=== PATIENT | female | born 1955 | race Caucasian/White ===

== ENCOUNTER 2020-06-07 16:09 | Inpatient (IN) | payer MEDICARE, BC ==
[~2020-06-07] VITALS: Ht 154.9 cm; Wt 111.0 kg
[~2020-06-07 16:09] MED LIST: BUPR100T11 PO; ESOM20TA PO; GABA300C2 PO; HYDR-2761 PO; INSU100C4 SQ; INSU100V8 SQ; LISI1TAB37 PO; POTA8TAB45 PO; SERT50TA PO
--- NOTE | 2020-06-07 16:19 | ED.ADGEN ---
General Adult EDM: Chief Complaint: SHORTNESS OF BREATH HPI: HPI: Patient is a 65 year old female with productive cough, tested positive for Covid on June 01. Says she has been gradually getting worse. Has producti ve cough, body aches, shortness of breath. Has been taking steroids and azithromycin at home. denies any fever, vomiting, diarrhea. Patient has a history of diabetes, enlarged heart, and COPD but denies any previous history of smoking. Review of Systems: Review of Systems: Constitutional: Denies fever or chills. [] Eyes: Denies change in visual acuity. [] HENT: Denies nasal congestion or sore throat. [] Respiratory: Cough and shortness of breath Cardiovascular: Denies chest pain or edema. [] GI: Denies abdominal pain, nausea, vomiting, bloody stools or diarrhea. [] : Denies dysuria. [] Musculoskeletal: Denies back pain or joint pain. [] Integument: Denies rash. [] Neurologic: Denies headache, focal weakness or sensory changes. [] Endocrine: Denies polyuria or polydipsia. [] Lymphatic: Denies swollen glands. [] Psychiatric: Denies depression or anxiety. [] Current Medications: Current Medications Medications (Trade) Dose Ordered Sig/[facility] Start Time Stop Time Status Last Admin Dose Admin Acetaminophen (Tylenol) 650 mg PRN Q4HRS PRN 06/07/20 19:30 06/08/20 19:29 Azithromycin 250 ml @ 250 mls/hr 1X ONCE 06/07/20 18:30 06/07/20 19:29 DC 06/07/20 18:30 250 MLS/HR Ceftriaxone Sodium (Rocephin) 1 gm 1X ONCE 06/07/20 18:15 06/07/20 18:16 DC 06/07/20 18:29 1 GM Dexamethasone Sodium Phosphate (Decadron) 10 mg 1X ONCE 06/07/20 16:30 06/07/20 16:31 DC 06/07/20 16:30 10 MG Dextrose (Dextrose 50%-Water Syringe) 12.5 gm PRN Q15MIN PRN 06/07/20 19:30 Info (CONTRAST GIVEN -- Rx MONITORING) 1 each PRN DAILY PRN 06/07/20 19:15 06/09/20 19:14 Insulin Human Lispro (HumaLOG) 0-5 UNITS TIDWMEALS 06/08/20 08:00 Iohexol (Omnipaque 350 Mg/ml) 80 ml 1X ONCE 06/07/20 19:15 06/07/20 19:16 DC 06/07/20 19:44 80 ML Ondansetron HCl (Zofran) 4 mg PRN Q8HRS PRN 06/07/20 19:30 06/08/20 19:29 Sodium Chloride 500 ml @ 500 mls/hr 1X ONCE 06/07/20 18:45 06/07/20 19:44 DC 06/07/20 20:13 500 MLS/HR Allergies: Allergies: Allergies Coded Allergies Type Severity Reaction Last Updated Verified codeine Allergy Mild vomiting 03/25/16 Yes nitrofurantoin Allergy Mild rash 03/25/16 Yes colestipol Allergy Unknown 06/07/20 Yes Physical Exam: PE: Constitutional: Well developed, well nourished, no acute distress, non-toxic appearance. [] HENT: Normocephalic, atraumatic, bilateral external ears normal, oropharynx moist, no oral exudates, nose normal. [] Eyes: PERRLA, EOMI, conjunctiva normal, no discharge. [] Neck: Normal range of motion, no tenderness, supple, no stridor. [] Cardiovascular:Heart rate regular rhythm, no murmur [] Lungs & Thorax: Coarse bilaterally Abdomen: Bowel sounds normal, soft, no tenderness, no masses, no pulsatile masses. [] Skin: Warm, dry, no erythema, no rash. [] Back: No tenderness, no CVA tenderness. [] Extremities: No tenderness, no cyanosis, no clubbing, ROM intact, no edema. [] Neurologic: Alert and oriented X 3, normal motor function, normal sensory function, no focal deficits noted. [] Psychologic: Affect normal, judgement normal, mood normal. [] Constitutional: Well developed, obese, no acute distress, non-toxic appearance HENT: Normocephalic, atraumatic Eyes: Conjunctiva normal, no discharge Neck: Normal range of motion, supple Lungs & Thorax: No respiratory distress, equal chest rise and fall, suppleme ntal O2 in place Abdomen: Soft, obese, epigastric tenderness Skin: Warm, dry, no erythema, no rash Extremities: No tenderness, ROM intact, 1+ edema Neurologic: Alert and oriented X 3, no focal deficits noted Psychologic: Affect normal, judgment normal Current Patient Data: Labs: Laboratory Tests Test 06/07/20 17:50 06/07/20 20:16 White Blood Count 5.7 x10^3/uL (4.0-11.0) Red Blood Count 4.35 x10^6/uL (3.50-5.40) Hemoglobin 12.9 g/dL (12.0-15.5) Hematocrit 38.5 % (36.0-47.0) Mean Corpuscular Volume 89 fL (79-100) Mean Corpuscular Hemoglobin 30 pg (25-35) Mean Corpuscular Hemoglobin Concent 34 g/dL (31-37) Red Cell Distribution Width 13.8 % (11.5-14.5) Platelet Count 149 x10^3/uL (140-400) Neutrophils (%) (Auto) 82 % (31-73) H Lymphocytes (%) (Auto) 14 % (24-48) L Monocytes (%) (Auto) 3 % (0-9) Eosinophils (%) (Auto) 0 % (0-3) Basophils (%) (Auto) 1 % (0-3) Neutrophils # (Auto) 4.6 x10^3/uL (1.8-7.7) Lymphocytes # (Auto) 0.8 x10^3/uL (1.0-4.8) L Monocytes # (Auto) 0.2 x10^3/uL (0.0-1.1) Eosinophils # (Auto) 0.0 x10^3/uL (0.0-0.7) Basophils # (Auto) 0.0 x10^3/uL (0.0-0.2) D-Dimer (Sarah) 0.73 ug/mlFEU (0.00-0.50) H Sodium Level 142 mmol/L (136-145) Potassium Level 4.1 mmol/L (3.5-5.1) Chloride Level 102 mmol/L (98-107) Carbon Dioxide Level 31 mmol/L (21-32) Anion Gap 9 (6-14) Blood Urea Nitrogen 29 mg/dL (7-20) H Creatinine 1.1 mg/dL (0.6-1.0) H Estimated GFR (Cockcroft-Gault) 49.5 BUN/Creatinine Ratio 26 (6-20) H Glucose Level 129 mg/dL (70-99) H Calcium Level 8.6 mg/dL (8.5-10.1) Total Bilirubin 0.4 mg/dL (0.2-1.0) Aspartate Amino Transferase (AST) 37 U/L (15-37) Alanine Aminotransferase (ALT) 14 U/L (14-59) Alkaline Phosphatase 60 U/L (46-116) Troponin I Quantitative < 0.017 ng/mL (0.000-0.055) JO-Ptb-F-Type Natriuretic Peptide 260 pg/mL (0-124) H Total Protein 7.0 g/dL (6.4-8.2) Albumin 2.6 g/dL (3.4-5.0) L Albumin/Globulin Ratio 0.6 (1.0-1.7) L Urine Collection Type Unknown Urine Color Yellow Urine Clarity Cloudy Urine pH 6.0 (<5.0-8.0) Urine Specific [place] >=1.030 (1.000-1.030) Urine Protein 100 mg/dL (NEG-TRACE) Urine Glucose (UA) Negative mg/dL (NEG) Urine Ketones (Stick) Negative mg/dL (NEG) Urine Blood Negative (NEG) Urine Nitrite Negative (NEG) Urine Bilirubin Negative (NEG) Urine Urobilinogen Dipstick 0.2 mg/dL (0.2 mg/dL) Urine Leukocyte Esterase Negative (NEG) Urine RBC Occ /HPF (0-2) Urine WBC Occ /HPF (0-4) Urine Squamous Epithelial Cells Many /LPF Urine Bacteria Few /HPF (0-FEW) Urine Hyaline Casts Occasional /HPF Urine Mucus Slight /LPF Laboratory Tests 06/07/20 17:50 Laboratory Tests 06/07/20 17:50 Vital Signs: Vital Signs Date Time Temp Pulse Resp B/P (MAP) Pulse Ox O2 Delivery O2 Flow Rate FiO2 06/07/20 16:12 98.7 63 28 158/83 (108) 92 Nasal Cannula 5.0 98.7 EKG: EKG: Sinus rhythm, heart rate 62 bpm, left axis deviation, flattened T waves in multiple leads, no ST elevation or depression, no ectopy [] Heart Score: Risk Factors: Risk Factors: DM, Current or recent (<one month) smoker, HTN, HLP, family history of CAD, obesity. Risk Scores: Score 0 - 3: 2.5% MACE over next 6 weeks - Discharge Home Score 4 - 6: 20.3% MACE over next 6 weeks - Admit for Clinical Observation Score 7 - 10: 72.7% MACE over next 6 weeks - Early Invasive Strategies Radiology/Procedures: Radiology/Procedures: Exam: Chest one view INDICATION: Covid TECHNIQUE: Frontal view of the chest Comparisons: None FINDINGS: The cardiomediastinal silhouette and pulmonary vessels are within normal limits. Patchy airspace disease at the lungs bilaterally. No pleural effusion. IMPRESSION: Patchy bilateral airspace disease. PROCEDURE: CT ANGIOGRAPHY CHEST PQRS Compliance Statement: One or more of the following individualized dose reduction techniques were utilized for this examination: 1. Automated exposure control 2. Adjustment of the mA and/or kV according to patient size 3. Use of iterative reconstruction technique CT CHEST WITH CONTRAST, PULMONARY ANGIOGRAM History: Reason: SOA, elevated d-dimer, COVID, : Comparison: None. Technique: Helical CT of the chest was performed after the administration of 80 cc of Omnipaque 350 intravenous contrast according to PE protocol. Axial and coronal reconstructions were obtained. 3-D MIP images were constructed to better evaluate the pulmonary arteries. Findings: Pulmonary arteries are adequately opacified. There is no evidence of pulmonary embolism. There is no thoracic aortic dissection. The thyroid is symmetric. There are upper limits of normal in size bilateral hilar lymph nodes. Subcentimeter mediastinal lymph nodes. Cardiac size upper limits of normal, no pericardial effusion. There is no pleural abnormality. The central airways are patent. There are moderate patchy groundglass opacities throughout the lungs, relative sparing of the lung apices and the basilar left lower lobe. There is interspersed normal aerated lung throughout. No nodular opacities or consolidation is identified. There is cholecystectomy. Spinal stimulator lead is seen terminates at about T9. There is hardware of the left humerus, incompletely imaged. Old compression deformity anterior superior endplate of L1. IMPRESSION: 1. There is no CT evidence of pulmonary embolus. 2. There are patchy groundglass opacities throughout the lungs with interspersed normal lung. Relative sparing of the basilar left lower lobe and the lung apices. There is no confluent consolidation. Considerations include pneumonia including atypical viral pneumonia, nonspecific pneumonitis, or drug toxicity. Electronically signed by: Rosalio Spnan MD (06/07/2020 7:57 PM) [facility] Course & Med Decision Making: Course & Med Decision Making Care transition to Dr. Brown at shift change, pending labs and possible CTA to rule out pulmonary embolism. Anticipate patient will be admitted due to hypoxia and oxygen demands. 1800- Sign out received from Dr. Lowery for patient with pmh of COPD who has previously tested positive for COVID-19. COVID-[address] Labs pending. CXR with signs of COVID pneumonia. Azithromycin previously provided. Labs reviewed. WBC and lactic acid WNL. Troponin WNL. D-dimer elevated. CTA chest with findings consistent for known COVID19 and no signs of PE. Patient requiring admission for further evaluation and treatment. Discussed with Dr. Edwards (hospitalist) who is in agreement with admission. Discussed findings and plan with patient, who acknowledges understanding and agreement. COVID-19 CRITERIA: The patient was evaluated during the global COVID-19 pandemic, and that diagnosis was suspected/considered upon their initial presentation. Their evaluation, treatment and testing was consistent with current guidelines for patients who present with complaints or symptoms that may be related to COVID-19. Dragon Disclaimer: Dragon Disclaimer: This electronic medical record was generated, in whole or in part, using a voice recognition dictation system. Departure Departure Impression: Primary Impression: Pneumonia due to 2019 novel coronavirus Additional Impressions: Hypoxia Elevated d-dimer Disposition: ADMITTED INPT THIS HOSP Admitting Physician: CUONG (Jerry) Condition: STABLE Referrals: DIONICIO BROWN (PCP) COVID-19 Assessment: COVID-19 Patient Risks: Age 65 or older: Yes Sign of co-morbidity: Yes Exp to person + for COVID: Yes Exp to PUI: No Travel from affected area: No Lower respiratory symptoms: Yes Fever: No Other: Yes PPE Use: Full PPE with N95 mask or PAPR: Yes Critical Care Time Critical care time was 30 minutes which includes time at bedside, spent in discussion of patient's care with specialists and/or family members, with interpretation of laboratory and/or radiological studies and is exclusive of procedures. Problem Qualifiers PARAMJIT LOWERY MD Jun 07, 2020 16:19 ZO BROWN DO Jun 07, 2020 19:27
--- NOTE | 2020-06-07 16:28 | EKG ---
[facility] [address] [place] [address] Test Date: 2020-06-07 Test Time: 16:20:20 Pat Name: VISH CUELLAR Department: Room: Gender: F Speech Lang Path Therapist: : [id number] Requested By: PARAMJIT LOWERY Order Number: [id number] Reading MD: Measurements Intervals [place] Rate: 62 P: 42 IN: 154 QRS: -12 QRSD: 80 T: 9 QT: 434 QTc: 443 Interpretive Statements SINUS RHYTHM LEFTWARD AXIS QRS(T) CONTOUR ABNORMALITY CONSIDER ANTEROSEPTAL MYOCARDIAL DAMAGE POSSIBLY ABNORMAL ECG RI6.02 No previous ECG available for comparison
[2020-06-07] MEDS ORDERED: DEXAMETHASONE SOD PHOS 20 MG/5 ML VIAL. IV ONE (16:30)
[2020-06-07] MEDS ORDERED: IV NORMAL SALINE 500ML BAG 500 ML IV ONE ×2 (16:30→18:45)
--- NOTE | 2020-06-07 17:14 | RAD ---
Exam: Chest one view INDICATION: Covid TECHNIQUE: Frontal view of the chest Comparisons: None FINDINGS: The cardiomediastinal silhouette and pulmonary vessels are within normal limits. Patchy airspace disease at the lungs bilaterally. No pleural effusion. IMPRESSION: Patchy bilateral airspace disease. Electronically signed by: Anne London MD (06/07/2020 5:11 PM) [facility]
[2020-06-07 18:08] LABS: BASO % 1 % (0-3); EOS % 0 % (0-3); HEMATOCRIT 38.5 % (36.0-47.0); HEMOGLOBIN 12.9 g/dL (12.0-15.5); LYMPH # 0.8 x10^3/uL (1.0-4.8); LYMPH % 14 % (24-48); MEAN CORPUSCULAR HEMOGLOBIN 30 pg (25-35); MEAN CORPUSCULAR HGB CONC 34 g/dL (31-37); MEAN CORPUSCULAR VOLUME 89 fL (79-100); MONO # 0.2 x10^3/uL (0.0-1.1); MONO % 3 % (0-9); NEUT # 4.6 x10^3/uL (1.8-7.7); NEUT % 82 % (31-73); PLATELET COUNT 149 x10^3/uL (140-400); RED BLOOD COUNT 4.35 x10^6/uL (3.50-5.40); RED CELL DISTRIBUTION WIDTH 13.8 % (11.5-14.5); WHITE BLOOD COUNT 5.7 x10^3/uL (4.0-11.0)
[2020-06-07] MEDS ORDERED: cefTRIAXone IV Push 1 GM VIAL. IVP ONE (18:15)
[2020-06-07 18:18] LABS: CALCIUM 8.6 mg/dL (8.5-10.1); CREATININE 1.1 mg/dL (0.6-1.0); GFR 49.5; POTASSIUM 4.1 mmol/L (3.5-5.1)
[2020-06-07 18:25] LABS: ALBUMIN 2.6 g/dL (3.4-5.0); ALBUMIN/GLOBULIN RATIO 0.6 (1.0-1.7); TOTAL BILIRUBIN 0.4 mg/dL (0.2-1.0)
[2020-06-07] MEDS ORDERED: AZITHRMYCN 500MG IVPB FOR OMNI 250 ML IV ONE (18:30)
[2020-06-07] MEDS ORDERED: IOHEXOL 350 MG/ML 100 ML VIAL. IV ONE (19:15)
[2020-06-07] MEDS ORDERED: CONTRAST GIVEN. MC PRN (19:15)
[2020-06-07] MEDS ORDERED: ACETAMINOPHEN 325 MG TABLET. PO PRN (19:30)
[2020-06-07] MEDS ORDERED: ONDANSETRON PF 4 MG/2 ML VIAL. IV PRN (19:30)
[2020-06-07] MEDS ORDERED: DEXTROSE 50% 25 GM / 50ML DISP.SYRIN. IV PRN (19:30)
--- NOTE | 2020-06-07 20:00 | RAD ---
PQRS Compliance Statement: One or more of the following individualized dose reduction techniques were utilized for this examination: 1. Automated exposure control 2. Adjustment of the mA and/or kV according to patient size 3. Use of iterative reconstruction technique CT CHEST WITH CONTRAST, PULMONARY ANGIOGRAM History: Reason: SOA, elevated d-dimer, COVID, : Comparison: None. Technique: Helical CT of the chest was performed after the administration of 80 cc of Omnipaque 350 intravenous contrast according to PE protocol. Axial and coronal reconstructions were obtained. 3-D MIP images were constructed to better evaluate the pulmonary arteries. Findings: Pulmonary arteries are adequately opacified. There is no evidence of pulmonary embolism. There is no thoracic aortic dissection. The thyroid is symmetric. There are upper limits of normal in size bilateral hilar lymph nodes. Subcentimeter mediastinal lymph nodes. Cardiac size upper limits of normal, no pericardial effusion. There is no pleural abnormality. The central airways are patent. There are moderate patchy groundglass opacities throughout the lungs, relative sparing of the lung apices and the basilar left lower lobe. There is interspersed normal aerated lung throughout. No nodular opacities or consolidation is identified. There is cholecystectomy. Spinal stimulator lead is seen terminates at about T9. There is hardware of the left humerus, incompletely imaged. Old compression deformity anterior superior endplate of L1. IMPRESSION: 1. There is no CT evidence of pulmonary embolus. 2. There are patchy groundglass opacities throughout the lungs with interspersed normal lung. Relative sparing of the basilar left lower lobe and the lung apices. There is no confluent consolidation. Considerations include pneumonia including atypical viral pneumonia, nonspecific pneumonitis, or drug toxicity. Electronically signed by: Rosalio Spann MD (06/07/2020 7:57 PM) [facility]
[2020-06-07 20:24] LABS: BILIRUBIN,URINE NEGATIVE (NEG); CLARITY,URINE CLOUDY; COLOR,URINE YELLOW; NITRITE,URINE NEGATIVE (NEG); PROTEIN,URINE 100 mg/dL (NEG-TRACE); UROBILINOGEN,URINE 0.2 mg/dL (0.2 mg/dL)
[2020-06-07 20:29] LABS: BACTERIA,URINE FEW /HPF (0-FEW); HYALINE CASTS, URINE OCCASIONAL /HPF; RBC,URINE OCC /HPF (0-2); WBC,URINE OCC /HPF (0-4)
[2020-06-07] MEDS ORDERED: PRED5DRO16 OU (23:21)
[2020-06-07] MEDS ORDERED: SERT100T8 PO (23:21)
[2020-06-07] MEDS ORDERED: FURO40TA4 PO (23:21)
[2020-06-07] MEDS ORDERED: POTA8CAP19 PO (23:21)
[2020-06-07] MEDS ORDERED: GABA300C9 PO (23:21)
[2020-06-07] MEDS ORDERED: INSU100I17 SQ (23:21)
[2020-06-07] MEDS ORDERED: [UNRECOGNIZED DRUG - CODE] PO (23:21)
[2020-06-07] MEDS ORDERED: LOSA1TAB19 PO (23:21)
[2020-06-07] MEDS ORDERED: GLIP5TAB22 PO (23:21)
[2020-06-07] MEDS: LOSARTAN POTASSIUM 50 MG TABLET. PO SCH (23:42)
[2020-06-08 03:00] VITALS: BP 180/81
[2020-06-08] MEDS ORDERED: ENALAPRILAT 1.25 MG/ML VIAL. IVP SCH (06:00)
[2020-06-08 07:05] VITALS: BP 166/72
[2020-06-08] MEDS ORDERED: NON FORMULARY ITEM (Insulin Aspart (Novolog Flexpen) 1 UNIT) SQ SCH (07:30)
[2020-06-08] MEDS: SERTRALINE 50 MG TABLET. PO SCH (08:28)
[2020-06-08] MEDS: POTASSIUM CHLORIDE 10 MEQ TABLET.ER. PO SCH (08:28)
[2020-06-08] MEDS: glipiZIDE ER 2.5 MG TAB.ER.24 PO SCH (08:28)
[2020-06-08] MEDS: hydroCHLOROthiazide 12.5 MG CAPSULE PO SCH (08:28)
[2020-06-08] MEDS: OXYBUTYNIN CHLORIDE 5 MG TABLET PO SCH ×2 (08:29→20:16)
[2020-06-08] MEDS: GABAPENTIN 300 MG CAPSULE. PO SCH (08:29)
[2020-06-08] MEDS: FUROSEMIDE 40 MG TABLET. PO SCH (08:29)
[2020-06-08] MEDS: LOSARTAN POTASSIUM 50 MG TABLET. PO SCH (08:30)
[2020-06-08] MEDS: DEXAMETHASONE 0.1% OPHTH SOLUTION 5ML BOTTLE. OU SCH ×4 (08:53→20:16)
[2020-06-08] MEDS: INSULIN LISPRO 300 UNITS/3 ML VIAL. SQ SCH ×6 (08:56→17:08)
--- NOTE | 2020-06-08 09:20 | PDOC1 ---
History and Physical Date of Admission Date of Admission DATE: 06/08/20 TIME: 09:16 Identification/Chief Complaint Chief Complaint Shortness of breath Source Source: Patient History of Present Illness History of Present Illness Ms Knapp is a is a 65 year old female with PMHx DM2 (A1c 7.7), depression (s/p ECT), COPD, HTN, stress incontinence, morbid obesity who presents to ED at the insistence of her son for productive cough, tested positive for Covid on June 01 and worsening hypoxia noted with O2 saturations 74% on room air at home. She has been gradually getting worse. Has productive cough, body aches, shortness of breath. Has been taking steroids and azithromycin at home. denies any fever, vomiting, diarrhea. EKG: Sinus rhythm, heart rate 62 bpm, left axis deviation, flattened T waves in multiple leads, no ST elevation or depression, no ectopy Chest radiograph with patchy bilateral airspace disease. Labs of WBC 5.7, Hb 12.9, platelets 149, albumin 2.6, NA 142, K4.1, BUN 29, CR 1.1, glucose 129 Lactic acid WNL. Troponin WNL. D-dimer elevated. CTA chest with findings consistent for known COVID19 and no signs of PE. Admitted for further care due to hypoxia and oxygen demands. Past Medical History Cardiovascular: HTN, Hyperlipidemia Pulmonary: Asthma, Bronchitis, COPD CENTRAL NERVOUS SYSTEM: Carpal Tunnel Syndrome Renal/: Urinary Incontinence Endocrine: Diabetes Past Surgical History Past Surgical History: Cholecystectomy, Other (Carpal tunnel bilateral) Family History Family History: Coronary Artery Disease (Mother and father), Diabetes, High Cholestrol, Hypertension Social History Smoke: No ALCOHOL: none Drugs: None Current Problem List Problem List Problems Medical Problems: (1) Elevated d-dimer Status: Acute (2) Hypoxia Status: Acute (3) Pneumonia due to 2019 novel coronavirus Status: Acute Current Medications Current Medications Current Medications Sodium Chloride 500 ml @ 500 mls/hr 1X ONCE IV Last administered on 06/07/20at 16:29; Start 06/07/20 at 16:30; Stop 06/07/20 at 17:29; Status DC Dexamethasone Sodium Phosphate (Decadron) 10 mg 1X ONCE IV Last administered on 06/07/20at 16:30; Start 06/07/20 at 16:30; Stop 06/07/20 at 16:31; Status DC Ceftriaxone Sodium (Rocephin) 1 gm 1X ONCE IVP Last administered on 06/07/20at 18:29; Start 06/07/20 at 18:15; Stop 06/07/20 at 18:16; Status DC Azithromycin 250 ml @ 250 mls/hr 1X ONCE IV Last administered on 06/07/20at 18:30; Start 06/07/20 at 18:30; Stop 06/07/20 at 19:29; Status DC Sodium Chloride 500 ml @ 500 mls/hr 1X ONCE IV Last administered on 06/07/20at 20:13; Start 06/07/20 at 18:45; Stop 06/07/20 at 19:44; Status DC Iohexol (Omnipaque 350 Mg/ml) 80 ml 1X ONCE IV Last administered on 06/07/20at 19:44; Start 06/07/20 at 19:15; Stop 06/07/20 at 19:16; Status DC Info (CONTRAST GIVEN -- Rx MONITORING) 1 each PRN DAILY PRN MC SEE COMMENTS; Start 06/07/20 at 19:15; Stop 06/09/20 at 19:14 Ondansetron HCl (Zofran) 4 mg PRN Q8HRS PRN IV NAUSEA/VOMITING; Start 06/07/20 at 19:30; Stop 06/08/20 at 19:29 Acetaminophen (Tylenol) 650 mg PRN Q4HRS PRN PO FEVER > 100.3'F Last administered on 06/07/20at 23:41; Start 06/07/20 at 19:30; Stop 06/08/20 at 19:29 Insulin Human Lispro (HumaLOG) 0-5 UNITS TIDWMEALS SQ Last administered on 06/08/20at 08:57; Start 06/08/20 at 08:00 Dextrose (Dextrose 50%-Water Syringe) 12.5 gm PRN Q15MIN PRN IV SEE COMMENTS; Start 06/07/20 at 19:30 Furosemide (Lasix) 40 mg DAILY PO Last administered on 06/08/20at 08:29; Start 06/08/20 at 09:00 Oxybutynin Chloride (Ditropan) 5 mg BID PO Last administered on 06/08/20at 08:29; Start 06/08/20 at 09:00 Glipizide (Glucotrol Er) 5 mg DAILY08 PO Last administered on 06/08/20at 08:28; Start 06/08/20 at 08:00 Non-Formulary Medication (Insulin Aspart (Novolog Flexpen)) 1 unit TIDAC SQ ; Start 06/08/20 at 07:30; Status UNV Insulin Human Lispro (HumaLOG) 20 units TIDWMEALS SQ Last administered on 06/08/20at 08:56; Start 06/08/20 at 08:00 Losartan Potassium (Cozaar) 50 mg DAILY PO Last administered on 06/08/20at 08:30; Start 06/08/20 at 00:00 Potassium Chloride (Klor-Con) 10 meq DAILYWBKFT PO Last administered on 06/08/20at 08:28; Start 06/08/20 at 08:00 Dexamethasone Sodium Phosphate (Maxidex) 2 drop QID OU Last administered on 06/08/20at 08:53; Start 06/08/20 at 09:00 Sertraline HCl (Zoloft) 100 mg DAILY PO Last administered on 06/08/20at 08:28; Start 06/08/20 at 09:00 Gabapentin (Neurontin) 600 mg DAILY PO Last administered on 06/08/20at 08:29; Start 06/08/20 at 09:00 Hydrochlorothiazide (Microzide) 12.5 mg DAILY PO Last administered on 06/08/20at 08:28; Start 06/08/20 at 09:00 Enalaprilat (Vasotec Inj) 1.25 mg Q6HRS IVP Last administered on 06/08/20at 04:40; Start 06/08/20 at 06:00; Stop 06/08/20 at 04:59; Status DC Enalaprilat (Vasotec Inj) 1.25 mg PRN Q6HRS PRN IVP HTN; Start 06/08/20 at 11:00 Active Scripts Active Reported Sertraline Hcl 100 Mg Tablet 100 Mg PO DAILY Potassium Chloride 8 Meq Capsule.er 1 Cap PO DAILY Novolog Flexpen (Insulin Aspart) 100 Unit/1 Ml Insuln.pen 1 Unit SQ TIDAC Glipizide Er (Glipizide) 5 Mg Tab.er.24 1 Tab PO QAM Darifenacin ER (Darifenacin Hydrobromide) 7.5 Mg Tab.er.24h 1 Tab PO DAILY Losartan-Hctz 50-12.5 Mg Tab (Losartan/Hydrochlorothiazide) 1 Each Tablet 1 Tab PO DAILY Furosemide 40 Mg Tablet 1 Tab PO DAILY Prednisolone Acetate 5 Ml Drops.susp 2 Drop OU QID Gabapentin 300 Mg Capsule 600 Mg PO DAILY Novolog (Insulin Aspart) 100 Unit/1 Ml Cartridge 20 Unit SQ TIDAC Allergies Allergies: Coded Allergies: colestipol (Verified Allergy, Intermediate, 06/07/20) nitrofurantoin (Verified Allergy, Intermediate, rash, 06/07/20) codeine (Verified Allergy, Mild, vomiting, 03/25/16) ROS General: YES: Chills, Night Sweats, Fatigue, Malaise, Appetite; No: Other PSYCHOLOGICAL ROS: YES: Anxiety, Depression; No: Behavioral Disorder, Concentration difficultie, Decreased libido, Disorientation, Hallucinations, Hostility, Irritablity, Memory difficulties, Mood Swings, Obsessive thoughts, Physical abuse, Sexual abuse, Sleep disturbances, Suicidal ideation, Other Eyes: No Blurry vision, No Decreased vision, No Double vision, No Dry eyes, No Excessive tearing, No Eye Pain, No Itchy Eyes, No Loss of vision, No Photophobia, No Scotomata, No Uses contacts, No Uses glasses, No Other HEENT: No: Heacaches, Visual Changes, Hearing change, Nasal congestion, Nasal discharge, Oral lesions, Sinus pain, Sore Throat, Epistaxis, Sneezing, Snoring, Tinnitus, Vertigo, Vocal changes, Other ALLERGY AND IMMUNOLOGY: No: Hives, Insect Bite Sensitivity, Itchy/Watery Eyes, Nasal Congestion, Post Nasal Drip, Seasonal Allergies, Other Hematological and Lymphatic: No: Bleeding Problems, Blood Clots, Blood Transfusions, Brusing, Night Sweats, Pallor, Swollen Lymph Nodes, Other ENDOCRINE: No: Breast Changes, Galactorrhea, Hair Pattern Changes, Hot Flashes, Malaise/lethargy, Mood Swings, Palpitations, Polydipsia/polyuria, Skin Changes, Temperature Intolerance, Unexpected Weight Changes, Other Breast: No New/Changing Breast Lumps, No Nipple changes, No Nipple discharge, No Other Respiratory: YES: Cough, Shortness of breath, SOB with excertion; No: Hemoptysis, Orthopnea, Pleuritic Pain, Sputum Changes, Stridor, Tachypnea, Wheezing, Other Cardiovascular: No Chest Pain, No Palpitations, No Orthopnea, No Paroxysmal Noc. Dyspnea, No Edema, No Lt Headedness, No Other Gastrointestinal: No Nausea, No Vomiting, No Abdominal Pain, No Diarrhea, No Constipation, No Melena, No Hematochezia, No Other Genitourinary: No Dysuria, No Frequency, No Incontinence, No Hematuria, No Retention, No Discharge, No Urgency, No Pain, No Flank Pain, No Other, No , No , No , No , No , No , No Musculoskeletal: No Gait Disturbance, No Joint Pain, No Joint Stiffness, No Joint Swelling, No Muscle Pain, No Muscular Weakness, No Pain In:, No Swelling In:, No Other Neurological: No Behavorial Changes, No Bowel/Bladder ControlChng, No Confusion, No Dizziness, No Gait Disturbance, No Headaches, No Impaired Coord/balance, No Memory Loss, No Numbness/Tingling, No Seizures, No Speech Problems, No Tremors, No Visual Changes, No Weakness, No Other Skin: No Dry Skin, No Eczema, No Hair Changes, No Lumps, No Mole Changes, No Mottling, No Nail Changes, No Pruritus, No Rash, No Skin Lesion Changes, No Other, No Acne Physical Exam General: Alert, Oriented X3, Cooperative, mild distress HEENT: Atraumatic, PERRLA, EOMI, Mucous membr. moist/pink Lungs: Other (Bilateral rhonchi and wheezes) Heart: S1S2, RRR, no thrills, no rubs, no gallops, no murmurs Abdomen: Normal bowel sounds, Soft, No tenderness, No hepatosplenomegaly, No m asses Rectal Exam: not examined Extremities: No clubbing, No cyanosis, No edema, Normal pulses, No tenderness/swelling Skin: No rashes, No breakdown, No significant lesion Neuro: Normal gait, Normal speech, Strength at 5/5 X4 ext, Normal tone, Sensation intact, Cranial nerves 3-12 NL, Reflexes 2+ Psych/Mental Status: Mental status NL, Mood NL Vitals Vitals Vital Signs Date Time Temp Pulse Resp B/P (MAP) Pulse Ox O2 Delivery O2 Flow Rate FiO2 06/08/20 08:30 57 166/72 06/08/20 03:00 96.4 19 98 Nasal Cannula 10.0 96.4 Labs Labs Laboratory Tests Test 06/07/20 17:50 06/07/20 20:16 06/07/20 23:39 06/08/20 00:30 White Blood Count 5.7 x10^3/uL (4.0-11.0) Red Blood Count 4.35 x10^6/uL (3.50-5.40) Hemoglobin 12.9 g/dL (12.0-15.5) Hematocrit 38.5 % (36.0-47.0) Mean Corpuscular Volume 89 fL (79-100) Mean Corpuscular Hemoglobin 30 pg (25-35) Mean Corpuscular Hemoglobin Concent 34 g/dL (31-37) Red Cell Distribution Width 13.8 % (11.5-14.5) Platelet Count 149 x10^3/uL (140-400) Neutrophils (%) (Auto) 82 % (31-73) Lymphocytes (%) (Auto) 14 % (24-48) Monocytes (%) (Auto) 3 % (0-9) Eosinophils (%) (Auto) 0 % (0-3) Basophils (%) (Auto) 1 % (0-3) Neutrophils # (Auto) 4.6 x10^3/uL (1.8-7.7) Lymphocytes # (Auto) 0.8 x10^3/uL (1.0-4.8) Monocytes # (Auto) 0.2 x10^3/uL (0.0-1.1) Eosinophils # (Auto) 0.0 x10^3/uL (0.0-0.7) Basophils # (Auto) 0.0 x10^3/uL (0.0-0.2) D-Dimer (Sarah) 0.73 ug/mlFEU (0.00-0.50) Sodium Level 142 mmol/L (136-145) Potassium Level 4.1 mmol/L (3.5-5.1) Chloride Level 102 mmol/L (98-107) Carbon Dioxide Level 31 mmol/L (21-32) Anion Gap 9 (6-14) Blood Urea Nitrogen 29 mg/dL (7-20) Creatinine 1.1 mg/dL (0.6-1.0) Estimated GFR (Cockcroft-Gault) 49.5 BUN/Creatinine Ratio 26 (6-20) Glucose Level 129 mg/dL (70-99) Calcium Level 8.6 mg/dL (8.5-10.1) Total Bilirubin 0.4 mg/dL (0.2-1.0) Aspartate Amino Transf (AST/SGOT) 37 U/L (15-37) Alanine Aminotransferase (ALT/SGPT) 14 U/L (14-59) Alkaline Phosphatase 60 U/L (46-116) Troponin I Quantitative < 0.017 ng/mL (0.000-0.055) < 0.017 ng/mL (0.000-0.055) MX-Puo-Q-Type Natriuretic Peptide 260 pg/mL (0-124) Total Protein 7.0 g/dL (6.4-8.2) Albumin 2.6 g/dL (3.4-5.0) Albumin/Globulin Ratio 0.6 (1.0-1.7) Urine Collection Type Unknown Urine Color Yellow Urine Clarity Cloudy Urine pH 6.0 (<5.0-8.0) Urine Specific Wister >=1.030 (1.000-1.030) Urine Protein 100 mg/dL (NEG-TRACE) Urine Glucose (UA) Negative mg/dL (NEG) Urine Ketones (Stick) Negative mg/dL (NEG) Urine Blood Negative (NEG) Urine Nitrite Negative (NEG) Urine Bilirubin Negative (NEG) Urine Urobilinogen Dipstick 0.2 mg/dL (0.2 mg/dL) Urine Leukocyte Esterase Negative (NEG) Urine RBC Occ /HPF (0-2) Urine WBC Occ /HPF (0-4) Urine Squamous Epithelial Cells Many /LPF Urine Bacteria Few /HPF (0-FEW) Urine Hyaline Casts Occasional /HPF Urine Mucus Slight /LPF Glucose (Fingerstick) 205 mg/dL (70-99) Laboratory Tests Test 06/07/20 17:50 06/07/20 20:16 06/07/20 23:39 06/08/20 00:30 White Blood Count 5.7 x10^3/uL (4.0-11.0) Red Blood Count 4.35 x10^6/uL (3.50-5.40) Hemoglobin 12.9 g/dL (12.0-15.5) Hematocrit 38.5 % (36.0-47.0) Mean Corpuscular Volume 89 fL (79-100) Mean Corpuscular Hemoglobin 30 pg (25-35) Mean Corpuscular Hemoglobin Concent 34 g/dL (31-37) Red Cell Distribution Width 13.8 % (11.5-14.5) Platelet Count 149 x10^3/uL (140-400) Neutrophils (%) (Auto) 82 % (31-73) Lymphocytes (%) (Auto) 14 % (24-48) Monocytes (%) (Auto) 3 % (0-9) Eosinophils (%) (Auto) 0 % (0-3) Basophils (%) (Auto) 1 % (0-3) Neutrophils # (Auto) 4.6 x10^3/uL (1.8-7.7) Lymphocytes # (Auto) 0.8 x10^3/uL (1.0-4.8) Monocytes # (Auto) 0.2 x10^3/uL (0.0-1.1) Eosinophils # (Auto) 0.0 x10^3/uL (0.0-0.7) Basophils # (Auto) 0.0 x10^3/uL (0.0-0.2) D-Dimer (Sarah) 0.73 ug/mlFEU (0.00-0.50) Sodium Level 142 mmol/L (136-145) Potassium Level 4.1 mmol/L (3.5-5.1) Chloride Level 102 mmol/L (98-107) Carbon Dioxide Level 31 mmol/L (21-32) Anion Gap 9 (6-14) Blood Urea Nitrogen 29 mg/dL (7-20) Creatinine 1.1 mg/dL (0.6-1.0) Estimated GFR (Cockcroft-Gault) 49.5 BUN/Creatinine Ratio 26 (6-20) Glucose Level 129 mg/dL (70-99) Calcium Level 8.6 mg/dL (8.5-10.1) Total Bilirubin 0.4 mg/dL (0.2-1.0) Aspartate Amino Transf (AST/SGOT) 37 U/L (15-37) Alanine Aminotransferase (ALT/SGPT) 14 U/L (14-59) Alkaline Phosphatase 60 U/L (46-116) Troponin I Quantitative < 0.017 ng/mL (0.000-0.055) < 0.017 ng/mL (0.000-0.055) MI-Wxa-X-Type Natriuretic Peptide 260 pg/mL (0-124) Total Protein 7.0 g/dL (6.4-8.2) Albumin 2.6 g/dL (3.4-5.0) Albumin/Globulin Ratio 0.6 (1.0-1.7) Urine Collection Type Unknown Urine Color Yellow Urine Clarity Cloudy Urine pH 6.0 (<5.0-8.0) Urine Specific Wister >=1.030 (1.000-1.030) Urine Protein 100 mg/dL (NEG-TRACE) Urine Glucose (UA) Negative mg/dL (NEG) Urine Ketones (Stick) Negative mg/dL (NEG) Urine Blood Negative (NEG) Urine Nitrite Negative (NEG) Urine Bilirubin Negative (NEG) Urine Urobilinogen Dipstick 0.2 mg/dL (0.2 mg/dL) Urine Leukocyte Esterase Negative (NEG) Urine RBC Occ /HPF (0-2) Urine WBC Occ /HPF (0-4) Urine Squamous Epithelial Cells Many /LPF Urine Bacteria Few /HPF (0-FEW) Urine Hyaline Casts Occasional /HPF Urine Mucus Slight /LPF Glucose (Fingerstick) 205 mg/dL (70-99) Images Images CTPA: Pulmonary arteries are adequately opacified. There is no evidence of pulmonary embolism. There is no thoracic aortic dissection. The thyroid is symmetric. There are upper limits of normal in size bilateral hilar lymph nodes. Subcentimeter mediastinal lymph nodes. Cardiac size upper limits of normal, no pericardial effusion. There is no pleural abnormality. The central airways are patent. There are moderate patchy groundglass opacities throughout the lungs, relative sparing of the lung apices and the basilar left lower lobe. There is interspersed normal aerated lung throughout. No nodular opacities or consolidation is identified. There is cholecystectomy. Spinal stimulator lead is seen terminates at about T9. There is hardware of the left humerus, incompletely imaged. Old compression deformity anterior superior endplate of L1. IMPRESSION: 1. There is no CT evidence of pulmonary embolus. 2. There are patchy groundglass opacities throughout the lungs with interspersed normal lung. Relative sparing of the basilar left lower lobe and the lung apices. There is no confluent consolidation. Considerations include pneumonia including atypical viral pneumonia, nonspecific pneumonitis, or drug toxicity. Chest radiograph: The cardiomediastinal silhouette and pulmonary vessels are within normal limits. Patchy airspace disease at the lungs bilaterally. No pleural effusion. IMPRESSION: Patchy bilateral airspace disease. VTE Prophylaxis Ordered VTE Prophylaxis Devices: No VTE Pharmacological Prophylaxi: Yes Assessment/Plan Assessment/Plan A/P: Acute respiratory failure with Hypoxia - related to COVID 19 + acute bronchitis Pneumonia due to 2019 novel coronavirus - with hypoxia will continue steroids. Per institutional policy needs technology consultant in order to place remdesivir order. Acute exacerbation of COPD with bronchitis - related to viral infection as above Elevated d-dimer - likely related to COVID 19, will trend DM2 (A1c 7.7) -basal bolus plus insulin Depression (s/p ECT) -continue home meds COPD -exacerbation as above, not on home O2. HTN -continue home meds Stress incontinence - offered purewick catheter Morbid obesity - counseled on diet, exercise, weight reduction strategies Severe protein calorie malnutrition - likely related to acute infection FEN - ADA diet PPX - lovenox FULL CODE Dispo - inpatient for above Justifications for Admission Other Justification ALEKSANDR CLAIRE MD Jun 08, 2020 09:20
[2020-06-08] MEDS ORDERED: ENALAPRILAT 1.25 MG/ML VIAL. IVP PRN (11:00)
[2020-06-08 11:05] VITALS: BP 155/69
[2020-06-08] MEDS ORDERED: ONDANSETRON PF 4 MG/2 ML VIAL. IV PRN (13:30)
--- NOTE | 2020-06-08 14:37 | NUR ---
SW following for discharge planning. Spoke with RN and reviewed chart. Pt from home. Pt COVID positive, ADA diet, 8l 02. Pt does not have home 02. SW attempted to call into pt's room to discuss discharge planning, no answer. SW following.
[2020-06-08] MEDS: ZINC SULFATE 220 MG CAPSULE. PO SCH (14:50)
[2020-06-08] MEDS: DEXAMETHASONE SOD PHOS 4 MG/ML VIAL IVP SCH (14:51)
[2020-06-08 15:05] VITALS: BP 140/60
[2020-06-08] MEDS: ACETAMINOPHEN 325 MG TABLET. PO PRN (17:29)
[2020-06-08 19:00] VITALS: BP 145/66
[2020-06-08] MEDS: INSULIN GLARGINE SYRINGE. SQ SCH (20:24)
[2020-06-08 23:00] VITALS: BP 168/79
[2020-06-09 03:00] VITALS: BP 181/81
[2020-06-09 07:05] VITALS: BP 186/80
[2020-06-09] MEDS: INSULIN LISPRO 300 UNITS/3 ML VIAL. SQ SCH ×6 (08:00→17:00)
[2020-06-09] MEDS: glipiZIDE ER 2.5 MG TAB.ER.24 PO SCH (08:19)
[2020-06-09] MEDS: ACETAMINOPHEN 325 MG TABLET. PO PRN (08:19)
[2020-06-09] MEDS: ZINC SULFATE 220 MG CAPSULE. PO SCH (08:19)
[2020-06-09] MEDS: hydroCHLOROthiazide 12.5 MG CAPSULE PO SCH (08:19)
[2020-06-09] MEDS: DEXAMETHASONE 0.1% OPHTH SOLUTION 5ML BOTTLE. OU SCH ×4 (08:19→21:06)
[2020-06-09] MEDS: GABAPENTIN 300 MG CAPSULE. PO SCH (08:20)
[2020-06-09] MEDS: SERTRALINE 50 MG TABLET. PO SCH (08:20)
[2020-06-09] MEDS: OXYBUTYNIN CHLORIDE 5 MG TABLET PO SCH ×2 (08:20→21:06)
[2020-06-09] MEDS: POTASSIUM CHLORIDE 10 MEQ TABLET.ER. PO SCH (08:21)
[2020-06-09] MEDS: FUROSEMIDE 40 MG TABLET. PO SCH (08:21)
[2020-06-09] MEDS: DEXAMETHASONE SOD PHOS 4 MG/ML VIAL IVP SCH (08:23)
[2020-06-09] MEDS: LOSARTAN POTASSIUM 50 MG TABLET. PO SCH (08:23)
[2020-06-09 11:05] VITALS: BP 159/70
--- NOTE | 2020-06-09 11:42 | PDOC ---
Infectious Disease Note Vital Sign Vital Signs Vital Signs Date Time Temp Pulse Resp B/P (MAP) Pulse Ox O2 Delivery O2 Flow Rate FiO2 06/09/20 11:05 98.4 70 21 159/70 (99) 93 NonRebreather Mask 10.0 98.4 Labs Lab Laboratory Tests Test 06/08/20 16:41 06/08/20 22:02 06/09/20 07:13 06/09/20 10:17 Glucose (Fingerstick) 172 mg/dL (70-99) 115 mg/dL (70-99) 134 mg/dL (70-99) 122 mg/dL (70-99) Micro Microbiology 06/08/20 Blood Culture - Preliminary, Resulted NO GROWTH AFTER 1 DAY Objective Assessment pt seen, consult dictated Plan Plan of Care / GAVIN ELIAS MD Jun 09, 2020 11:42
--- NOTE | 2020-06-09 12:35 | CONS ---
DATE OF CONSULTATION: 06/09/2020 REQUESTING PHYSICIAN: Dr. Gaytan. REASON FOR CONSULTATION: COVID with respiratory failure. HISTORY OF PRESENT ILLNESS: This is a 65-year-old morbidly obese female with diabetes, who had family member with COVID. She turned positive on with COVID, started with symptoms cough, body ache, shortness of breath. The patient had been taking steroids and azithromycin, had no fever. The patient's oxygen saturation went lower and hence, she decided to come in. The patient has bilateral infiltrate, now requiring at least 10 liters of oxygen now. Denies any nausea, vomiting. Denies any headache or visual symptoms. Denies any urinary symptoms or bowel symptoms or abdominal pain. PAST MEDICAL HISTORY: Positive for hypertension, hyperlipidemia, diabetes, COPD, obesity, asthma, urinary incontinence. SOCIAL HISTORY: Negative for smoking, alcohol, or illicit drug use. ALLERGIES: LISTED ALLERGIC TO NITROFURANTOIN, CODEINE AND COLESTIPOL. REVIEW OF SYSTEMS: As per HPI, all other systems reviewed are negative. CURRENT MEDICATIONS: Reviewed. PHYSICAL EXAMINATION: GENERAL: Alert, oriented female, not in distress. VITAL SIGNS: Stable, afebrile. HEENT: NAD. NECK: Supple, no JVP, no lymphadenopathy. LUNGS: Clear. HEART: S1, S2 regular. ABDOMEN: Benign. EXTREMITIES: No edema, cyanosis. SKIN: Unremarkable. NEUROLOGIC: The patient is alert, awake and appropriate. No focal neurologic deficit. LABORATORY DATA: White count is 5.7, platelets are normal. BUN and creatinine are 29 and 1.1. Urinalysis unremarkable. Blood culture is negative. Chest CT reviewed. IMPRESSION: 1. COVID-19 positive. 2. COVID-19 pneumonia. 3. Respiratory failure. 4. Obesity. 5. Chronic obstructive pulmonary disease. 6. Hypertension. 7. Diabetes. RECOMMENDATIONS: Continue steroids, start remdesivir, supportive care and we will continue to follow. Thank you very much, Dr. Edwards and Dr. Gaytan, for giving me the opportunity to participate in this patient's care. GAVIN ELIAS MD DR: KAREEM/roscoe JOB#: [id number] / [id number]
--- NOTE | 2020-06-09 12:53 | PDOC ---
[employer] PROGRESS NOTE Date of Service DOS: DATE: 06/09/20 TIME: 12:51 Chief Complaint Chief Complaint Acute respiratory failure with Hypoxia - related to COVID 19 + acute bronchitis Pneumonia due to 2019 novel coronavirus Acute exacerbation of COPD with bronchitis Elevated d-dimer DM2 (A1c 7.7) Depression COPD HTN Stress incontinence Morbid obesity Severe protein calorie malnutrition History of Present Illness History of Present Illness 06/09/2020 Patient seen and examined on the COVID-19 floor She is on 100% nonrebreather appears quite ill Discussed with case management Discussed with RN Chart reviewed Vitals/I&O Vitals/I&O: Vital Signs Date Time Temp Pulse Resp B/P (MAP) Pulse Ox O2 Delivery O2 Flow Rate FiO2 06/09/20 11:05 98.4 70 21 159/70 (99) 93 NonRebreather Mask 10.0 98.4 I & O 06/08/20 06/08/20 06/09/20 15:00 23:00 07:00 Intake Total 0 ml 0 ml Output Total 500 ml 650 ml 400 ml Balance -500 ml -650 ml -400 ml Physical Exam General: mild distress, moderate distress, Other (On 100% nonrebreather) Heart: Other (Tachycardic) Lungs: Wheezing, Crackles Abdomen: Normal bowel sounds, Soft, No tenderness, No hepatosplenomegaly, No masses Extremities: No clubbing, No cyanosis, No edema, Normal pulses, No tenderness/swelling Skin: No rashes, No breakdown, No significant lesion Labs Labs: Laboratory Tests Test 06/08/20 16:41 06/08/20 22:02 06/09/20 07:13 06/09/20 10:17 Glucose (Fingerstick) 172 mg/dL (70-99) 115 mg/dL (70-99) 134 mg/dL (70-99) 122 mg/dL (70-99) Assessment and Plan Assessmemt and Plan Problems Medical Problems: (1) Elevated d-dimer Status: Acute (2) Hypoxia Status: Acute (3) Pneumonia due to 2019 novel coronavirus Status: Acute Acute respiratory failure with Hypoxia - related to COVID 19 + acute bronchitis Pneumonia due to 2019 novel coronavirus - with hypoxia will continue steroids. Per institutional policy needs provider relations consultant in order to place remdesivir order. Acute exacerbation of COPD with bronchitis - related to viral infection as above Elevated d-dimer - likely related to COVID 19, will trend DM2 (A1c 7.7) -basal bolus plus insulin Depression (s/p ECT) -continue home meds COPD -exacerbation as above, not on home O2. HTN -continue home meds Stress incontinence - offered purewick catheter Morbid obesity - counseled on diet, exercise, weight reduction strategies Severe protein calorie malnutrition - likely related to acute infection cc time 31 min Comment Review of Relevant I have reviewed the following items angel luis (where applicable) has been applied. Medications: Current Medications Medications (Trade) Dose Ordered Sig/[facility] Route PRN Reason Start Time Stop Time Status Last Admin Dose Admin Acetaminophen (Tylenol) 650 mg PRN Q6HRS PRN PO FEVER > 100.3'F 06/08/20 13:30 06/09/20 08:19 Dexamethasone Sodium Phosphate (Decadron) 6 mg DAILY IVP 06/08/20 13:45 06/09/20 08:23 Zinc Sulfate (Orazinc) 220 mg DAILY PO 06/08/20 14:00 06/09/20 08:19 Insulin Glargine (Lantus Syringe) 25 unit QHS SQ 06/08/20 21:00 06/08/20 20:24 Justifications for Admission Other Justification YESIKA PEREZ III DO Jun 09, 2020 12:53
[2020-06-09] MEDS ORDERED: REMDESIVIR LOAD in IV NORMAL SALINE 250ML TV IV ONE (13:00)
[2020-06-09 15:05] VITALS: BP 141/65
--- NOTE | 2020-06-09 16:32 | NUR ---
SW following for discharge planning. Spoke with RN and reviewed chart. Pt 02 increased to 10l nonrebreather. Pt started on IV Remdesivir, day 1. Pt not ready for discharge. SW following.
[2020-06-09 19:00] VITALS: BP 158/68
[2020-06-09] MEDS: ENOXAPARIN 40 MG/0.4 ML SYRINGE. SQ SCH (21:06)
[2020-06-09] MEDS: INSULIN GLARGINE SYRINGE. SQ SCH (21:17)
[2020-06-09 23:00] VITALS: BP 167/77
[2020-06-10 03:00] VITALS: BP 153/68
[2020-06-10 07:00] VITALS: BP 166/77
[2020-06-10] MEDS: INSULIN LISPRO 300 UNITS/3 ML VIAL. SQ SCH ×6 (08:00→17:00)
[2020-06-10 09:00] LABS: BASE EXCESS ABG 7 mmol/L (-3-3); HCO3 ABG 32 mmol/L (21-28); PCO2 ABG 47 mmHg (35-46); SAT O2 ABG 84 % (92-99)
[2020-06-10 09:07] LABS: FIO2 ABG 100/NRB; PO2 ABG 46 mmHg (65-108)
[2020-06-10] MEDS: SERTRALINE 50 MG TABLET. PO SCH (09:59)
[2020-06-10] MEDS: hydroCHLOROthiazide 12.5 MG CAPSULE PO SCH (09:59)
[2020-06-10] MEDS: DEXAMETHASONE SOD PHOS 4 MG/ML VIAL IVP SCH (09:59)
[2020-06-10] MEDS: ZINC SULFATE 220 MG CAPSULE. PO SCH (10:00)
[2020-06-10] MEDS: glipiZIDE ER 2.5 MG TAB.ER.24 PO SCH (10:00)
[2020-06-10] MEDS: FUROSEMIDE 40 MG TABLET. PO SCH (10:01)
[2020-06-10] MEDS: POTASSIUM CHLORIDE 10 MEQ TABLET.ER. PO SCH (10:01)
[2020-06-10] MEDS: GABAPENTIN 300 MG CAPSULE. PO SCH (10:01)
[2020-06-10] MEDS: OXYBUTYNIN CHLORIDE 5 MG TABLET PO SCH ×2 (10:01→21:19)
[2020-06-10] MEDS: LOSARTAN POTASSIUM 50 MG TABLET. PO SCH (10:02)
[2020-06-10] MEDS: DEXAMETHASONE 0.1% OPHTH SOLUTION 5ML BOTTLE. OU SCH ×4 (10:02→21:19)
[2020-06-10] MEDS: ENOXAPARIN 40 MG/0.4 ML SYRINGE. SQ SCH ×2 (10:04→21:19)
[2020-06-10 11:00] VITALS: BP 162/68
--- NOTE | 2020-06-10 11:17 | CONS ---
DATE OF CONSULTATION: PULMONARY CONSULTATION ATTENDING PHYSICIAN: Ashley Andrews DO REASON FOR CONSULTATION: Respiratory failure. HISTORY OF PRESENT ILLNESS: The patient is a 65-year-old obese female with a BMI of 48.9. She was brought into the hospital with dyspnea and hypoxia. The patient was recently tested positive for COVID-19. The patient had cough, body aches, and shortness of breath. She has been taking steroids and azithromycin. Currently, she has been placed on a nonrebreather mask with 15 liters oxygen flow. Rapid response was called due to her hypoxia. We are in the process of arranging BiPAP for her. She is comfortable. Denies any significant paradoxical breathing. Her imaging studies were reviewed. She underwent CTA chest. There was no evidence of pulmonary embolism; however, there are extensive patchy ground-glass opacities throughout both lungs. There was no significant pleural effusion. Consultation requested for further evaluation and management. PAST MEDICAL HISTORY: Significant for history of hypertension, hyperlipidemia, diabetes, morbid obesity, asthma, urinary incontinence. PAST SURGICAL HISTORY: Includes no recent surgeries. ALLERGIES: NITROFURANTOIN, CODEINE AND COLESTIPOL. REVIEW OF SYSTEMS: Ten point system obtained. Pertinent positives discussed in my history of present illness, otherwise noncontributory. All systems that were negative were reviewed as well. MEDICATIONS: Reviewed as listed in the [facility]AD including Lovenox for DVT prophylaxis. She is on remdesivir and dexamethasone. SOCIAL HISTORY: Nonsmoker. PHYSICAL EXAMINATION: VITAL SIGNS: She is comfortable, but requiring 15 liters nonrebreather mask. Afebrile, blood pressure on the high side. GENERAL: Visual exam done due to COVID-19 pandemia. She is in no obvious respiratory distress. She is obese. No skin rash. EXTREMITIES: Trace pitting edema. LABORATORY DATA: Reviewed. White cell count 5.7, hemoglobin 12.9, platelets are 149. Her BUN is 29, creatinine 1.1. ABGs with a pH of 7.45, pCO2 of 47 and a pO2 of 46 on nonrebreather mask. IMPRESSION: 1. Acute hypoxic respiratory failure secondary to acute lung injury, acute respiratory distress syndrome due to COVID-19 pneumonia. 2. COVID-[address] chest with diffuse extensive bilateral infiltrates. No evidence of pulmonary embolism. This finding is consistent with COVID-19 pneumonia. 4. Underlying morbid obesity contributing to hypoxia. 5. No significant tobacco use. RECOMMENDATIONS: 1. We will place the patient on BiPAP. 2. Remdesivir was initiated. 3. Dexamethasone. 4. Lovenox for DVT prophylaxis. 5. Supportive care. 6. We will watch her respiratory status closely. 7. Discussed with RN and RT. Critical care time 35 minutes. DEEDEE WARD MD DR: FATUMA/roscoe JOB#: [id number] / [id number]
--- NOTE | 2020-06-10 11:35 | PDOC ---
Infectious Disease Note Subjective Subjective on bipap now ROS ROS no n/v/d/ Vital Sign Vital Signs Vital Signs Date Time Temp Pulse Resp B/P (MAP) Pulse Ox O2 Delivery O2 Flow Rate FiO2 06/10/20 11:00 99.2 62 162/68 (99) 89 NonRebreather Mask 15.0 99.2 06/10/20 07:00 29 Physical Exam PHYSICAL EXAM GENERAL: Alert, oriented female, not in distress. VITAL SIGNS: Stable, afebrile. HEENT: NAD. NECK: Supple, no JVP, no lymphadenopathy. LUNGS: Clear. HEART: S1, S2 regular. ABDOMEN: Benign. EXTREMITIES: No edema, cyanosis. SKIN: Unremarkable. NEUROLOGIC: The patient is alert, awake and appropriate. No focal neurologic deficit. Labs Lab Laboratory Tests Test 06/09/20 16:12 06/09/20 19:24 06/10/20 08:12 06/10/20 08:50 Glucose (Fingerstick) 74 mg/dL (70-99) 128 mg/dL (70-99) 62 mg/dL (70-99) O2 Saturation 84 % (92-99) Arterial Blood pH 7.45 (7.35-7.45) Arterial Blood pCO2 at Patient Temp 47 mmHg (35-46) Arterial Blood pO2 at Patient Temp 46 mmHg (65-108) Arterial Blood HCO3 32 mmol/L (21-28) Arterial Blood Base Excess 7 mmol/L (-3-3) FiO2 100/nrb Micro Microbiology 06/08/20 Blood Culture - Preliminary, Resulted NO GROWTH AFTER 1 DAY Objective Assessment IMPRESSION: 1. COVID-19 positive. 2. COVID-19 pneumonia. 3. Respiratory failure. 4. Obesity. 5. Chronic obstructive pulmonary disease. 6. Hypertension. 7. Diabetes. Plan Plan of Care cont current treatment supportive care demarap GAVIN ELIAS MD Jun 10, 2020 11:35
--- NOTE | 2020-06-10 12:26 | PDOC ---
[facility] PROGRESS NOTE Date of Service DOS: DATE: 06/10/20 TIME: 12:25 Chief Complaint Chief Complaint Acute respiratory failure with Hypoxia - related to COVID 19 + acute bronchitis Pneumonia due to 2019 novel coronavirus Acute exacerbation of COPD with bronchitis Elevated d-dimer DM2 (A1c 7.7) Depression COPD HTN Stress incontinence Morbid obesity Severe protein calorie malnutrition History of Present Illness History of Present Illness 06/10/2020 Patient seen and examined on the COVID-19 floor She is on BiPAP Started on remdesivir as well per pulmonary Discussed with case management Discussed with RN Chart reviewed She is extremely ill 06/09/2020 Patient seen and examined on the COVID-19 floor She is on 100% nonrebreather appears quite ill Discussed with case management Discussed with RN Chart reviewed Vitals/I&O Vitals/I&O: Vital Signs Date Time Temp Pulse Resp B/P (MAP) Pulse Ox O2 Delivery O2 Flow Rate FiO2 06/10/20 11:00 99.2 62 162/68 (99) 89 NonRebreather Mask 15.0 99.2 06/10/20 07:00 29 I & O 06/09/20 06/09/20 06/10/20 15:00 23:00 07:00 Output Total 650 ml 500 ml 1100 ml Balance -650 ml -500 ml -1100 ml Physical Exam Physical Exam: GENERAL: Alert, oriented female, not in distress. VITAL SIGNS: Stable, afebrile. HEENT: NAD. NECK: Supple, no JVP, no lymphadenopathy. LUNGS: Bibasilar crackles on BiPAP HEART: S1, S2 regular. ABDOMEN: Benign. EXTREMITIES: No edema, cyanosis. SKIN: Unremarkable. NEUROLOGIC: Flat affect very sleepy General: mild distress, moderate distress, Other (On BiPAP) Heart: Other (Tachycardic) Lungs: Wheezing, Crackles Abdomen: Normal bowel sounds, Soft, No tenderness, No hepatosplenomegaly, No masses Extremities: No clubbing, No cyanosis, No edema, Normal pulses, No tenderness/swelling Skin: No rashes, No breakdown, No significant lesion Labs Labs: Laboratory Tests Test 06/09/20 16:12 06/09/20 19:24 06/10/20 08:12 06/10/20 08:50 Glucose (Fingerstick) 74 mg/dL (70-99) 128 mg/dL (70-99) 62 mg/dL (70-99) O2 Saturation 84 % (92-99) Arterial Blood pH 7.45 (7.35-7.45) Arterial Blood pCO2 at Patient Temp 47 mmHg (35-46) Arterial Blood pO2 at Patient Temp 46 mmHg (65-108) Arterial Blood HCO3 32 mmol/L (21-28) Arterial Blood Base Excess 7 mmol/L (-3-3) FiO2 100/nrb Test 06/10/20 11:45 Glucose (Fingerstick) 124 mg/dL (70-99) Assessment and Plan Assessmemt and Plan Problems Medical Problems: (1) Elevated d-dimer Status: Acute (2) Hypoxia Status: Acute (3) Pneumonia due to 2019 novel coronavirus Status: A Acute respiratory failure with Hypoxia - related to COVID 19 + acute bronchitis Pneumonia due to 2019 novel coronavirus Acute exacerbation of COPD with bronchitis Elevated d-dimer DM2 (A1c 7.7) Depression COPD HTN Stress incontinence Morbid obesity Severe protein calorie malnutrition Plan Covid isolation Covid protocol including remdesivir steroids antibiotics vitamins oxygen beta agonists etc. BiPAP Trend labs DVT prophylaxis Full code She is extremely ill Prognosis guarded Per pulmonary recommendations please see the following; IMPRESSION: 1. Acute hypoxic respiratory failure secondary to acute lung injury, acute respiratory distress syndrome due to COVID-19 pneumonia. 2. COVID-[address] chest with diffuse extensive bilateral infiltrates. No evidence of pulmonary embolism. This finding is consistent with COVID-19 pneumonia. 4. Underlying morbid obesity contributing to hypoxia. 5. No significant tobacco use. RECOMMENDATIONS: 1. We will place the patient on BiPAP. 2. Remdesivir was initiated. 3. Dexamethasone. 4. Lovenox for DVT prophylaxis. 5. Supportive care. 6. We will watch her respiratory status closely. 7. Discussed with RN and RT. Comment Review of Relevant I have reviewed the following items angel luis (where applicable) has been applied. Medications: Current Medications Medications (Trade) Dose Ordered Sig/[facility] Route PRN Reason Start Time Stop Time Status Last Admin Dose Admin Remdesivir 200 mg/ Sodium Chloride 210 ml @ 210 mls/hr 1X ONCE IV 06/09/20 13:00 06/09/20 13:59 DC 06/09/20 13:47 Enoxaparin Sodium (Lovenox 40mg Syringe) 40 mg Q12HR SQ 06/09/20 21:00 06/10/20 10:04 Guaifenesin (Mucinex) 600 mg BID PO 06/09/20 21:00 06/10/20 10:01 Justifications for Admission Other Justification YESIKA PEREZ III DO Jun 10, 2020 12:26
[2020-06-10] MEDS: REMDESIVIR 100mg in NORMAL SALINE 250ML X 4 DAYS IV SCH (14:39)
[2020-06-10 14:49] VITALS: BP 164/72
--- NOTE | 2020-06-10 16:28 | NUR ---
SW following for discharge planning. Spoke with RN and reviewed chart. Pt now on BiPap. Pt remains on IV Remdesivir, day 2. Pt not ready for discharge. SW following.
[2020-06-10 19:00] VITALS: BP 153/84
[2020-06-10] MEDS: INSULIN GLARGINE SYRINGE. SQ SCH (20:09)
[2020-06-10 23:00] VITALS: BP 172/73
[2020-06-11 03:00] VITALS: BP 169/72
[2020-06-11 07:00] VITALS: BP 146/63
[2020-06-11] MEDS: INSULIN LISPRO 300 UNITS/3 ML VIAL. SQ SCH ×6 (08:00→17:00)
--- NOTE | 2020-06-11 08:19 | NUR ---
AM insulin held, patient not eating d/t being on BiPap.
--- NOTE | 2020-06-11 09:26 | PDOC ---
Infectious Disease Note Subjective Subjective on bipap now ROS ROS No nausea vomiting or fever Vital Sign Vital Signs Vital Signs Date Time Temp Pulse Resp B/P (MAP) Pulse Ox O2 Delivery O2 Flow Rate FiO2 06/11/20 07:30 92 BiPAP/CPAP 06/11/20 07:00 97.9 57 24 146/63 (90) 15.0 97.9 Physical Exam PHYSICAL EXAM GENERAL: Alert, oriented female, in mild distress. VITAL SIGNS: Stable, afebrile. HEENT: NAD. NECK: Supple, no JVP, no lymphadenopathy. LUNGS: Bibasilar crackles on BiPAP HEART: S1, S2 regular. ABDOMEN: Benign. EXTREMITIES: No edema, cyanosis. SKIN: Unremarkable. NEUROLOGIC: Flat affect very sleepy Labs Lab Laboratory Tests Test 06/10/20 11:45 06/10/20 16:51 06/10/20 19:58 06/11/20 08:04 Glucose (Fingerstick) 124 mg/dL (70-99) 177 mg/dL (70-99) 207 mg/dL (70-99) 109 mg/dL (70-99) Micro Microbiology 06/08/20 Blood Culture - Preliminary, Resulted NO GROWTH AFTER 1 DAY Objective Assessment IMPRESSION: 1. COVID-19 positive. 2. COVID-19 pneumonia. 3. Respiratory failure. 4. Obesity. 5. Chronic obstructive pulmonary disease. 6. Hypertension. 7. Diabetes. Plan Plan of Care cont current treatment supportive care bipap Overall prognosis poor GAVIN ELIAS MD Jun 11, 2020 09:26
[2020-06-11] MEDS: DEXAMETHASONE 0.1% OPHTH SOLUTION 5ML BOTTLE. OU SCH ×4 (09:40→20:34)
[2020-06-11] MEDS: ENOXAPARIN 40 MG/0.4 ML SYRINGE. SQ SCH ×2 (09:40→20:32)
[2020-06-11] MEDS: POTASSIUM CHLORIDE 10 MEQ TABLET.ER. PO SCH (09:41)
[2020-06-11] MEDS: OXYBUTYNIN CHLORIDE 5 MG TABLET PO SCH ×2 (09:41→20:31)
[2020-06-11] MEDS: hydroCHLOROthiazide 12.5 MG CAPSULE PO SCH (09:41)
[2020-06-11] MEDS: glipiZIDE ER 2.5 MG TAB.ER.24 PO SCH (09:41)
[2020-06-11] MEDS: LOSARTAN POTASSIUM 50 MG TABLET. PO SCH (09:42)
[2020-06-11] MEDS: GABAPENTIN 300 MG CAPSULE. PO SCH (09:42)
[2020-06-11] MEDS: SERTRALINE 50 MG TABLET. PO SCH (09:42)
[2020-06-11] MEDS: ZINC SULFATE 220 MG CAPSULE. PO SCH (09:42)
[2020-06-11] MEDS: FUROSEMIDE 40 MG TABLET. PO SCH (09:43)
[2020-06-11] MEDS: DEXAMETHASONE SOD PHOS 4 MG/ML VIAL IVP SCH (09:45)
[2020-06-11] MEDS: ASCORBIC ACID 500 MG TABLET PO SCH (09:56)
--- NOTE | 2020-06-11 10:29 | PDOC ---
PROGRESS NOTES Date of Service: DATE: 06/11/20 TIME: 10:28 Chief Complaint Chief Complaint Acute respiratory failure with Hypoxia - related to COVID 19 + acute bronchitis Pneumonia due to 2019 novel coronavirus Acute exacerbation of COPD with bronchitis Elevated d-dimer DM2 (A1c 7.7) Depression COPD HTN Stress incontinence Morbid obesity Severe protein calorie malnutrition History of Present Illness History of Present Illness 06/11, now on the BIPAP, has declined, ID and PULM following, cont other managemnt 06/10/2020 Patient seen and examined on the [facility]- floor She is on BiPAP Started on remdesivir as well per pulmonary Discussed with case management Discussed with RN Chart reviewed She is extremely ill 06/09/2020 Patient seen and examined on the [facility]- floor She is on 100% nonrebreather appears quite ill Discussed with case management Discussed with RN Chart reviewed Vitals Vitals Vital Signs Date Time Temp Pulse Resp B/P (MAP) Pulse Ox O2 Delivery O2 Flow Rate FiO2 06/11/20 09:42 57 146/63 06/11/20 07:30 92 BiPAP/CPAP 06/11/20 07:00 97.9 24 15.0 97.9 Physical Exam Physical Exam GENERAL: Alert, oriented female, in mild distress. VITAL SIGNS: Stable, afebrile. HEENT: NAD. NECK: Supple, no JVP, no lymphadenopathy. LUNGS: Bibasilar crackles on BiPAP HEART: S1, S2 regular. ABDOMEN: Benign. EXTREMITIES: No edema, cyanosis. SKIN: Unremarkable. NEUROLOGIC: Flat affect very sleepy General: mild distress, moderate distress, Other (On BiPAP) Heart: Other (Tachycardic) Lungs: Wheezing, Crackles Abdomen: Normal bowel sounds, Soft, No tenderness, No hepatosplenomegaly, No masses Extremities: No clubbing, No cyanosis, No edema, Normal pulses, No tenderness/swelling Skin: No rashes, No breakdown, No significant lesion Labs LABS Laboratory Tests Test 06/10/20 11:45 06/10/20 16:51 06/10/20 19:58 06/11/20 08:04 Glucose (Fingerstick) 124 mg/dL (70-99) 177 mg/dL (70-99) 207 mg/dL (70-99) 109 mg/dL (70-99) Assessment and Plan Assessmemt and Plan Problems Medical Problems: (1) Elevated d-dimer Status: Acute (2) Hypoxia Status: Acute (3) Pneumonia due to 2019 novel coronavirus Status: Acute Comment Review of Relevant I have reviewed the following items angel luis (where applicable) has been applied. Labs Laboratory Tests Test 06/09/20 16:12 06/09/20 19:24 06/10/20 08:12 06/10/20 08:50 Glucose (Fingerstick) 74 mg/dL (70-99) 128 mg/dL (70-99) 62 mg/dL (70-99) O2 Saturation 84 % (92-99) Arterial Blood pH 7.45 (7.35-7.45) Arterial Blood pCO2 at Patient Temp 47 mmHg (35-46) Arterial Blood pO2 at Patient Temp 46 mmHg (65-108) Arterial Blood HCO3 32 mmol/L (21-28) Arterial Blood Base Excess 7 mmol/L (-3-3) FiO2 100/nrb Test 06/10/20 11:45 06/10/20 16:51 06/10/20 19:58 06/11/20 08:04 Glucose (Fingerstick) 124 mg/dL (70-99) 177 mg/dL (70-99) 207 mg/dL (70-99) 109 mg/dL (70-99) Laboratory Tests Test 06/10/20 11:45 06/10/20 16:51 06/10/20 19:58 06/11/20 08:04 Glucose (Fingerstick) 124 mg/dL (70-99) 177 mg/dL (70-99) 207 mg/dL (70-99) 109 mg/dL (70-99) Microbiology 06/08/20 Blood Culture - Preliminary, Resulted NO GROWTH AFTER 3 DAYS Medications Current Medications Sodium Chloride 500 ml @ 500 mls/hr 1X ONCE IV Last administered on 06/07/20at 16:29; Start 06/07/20 at 16:30; Stop 06/07/20 at 17:29; Status DC Dexamethasone Sodium Phosphate (Decadron) 10 mg 1X ONCE IV Last administered on 06/07/20at 16:30; Start 06/07/20 at 16:30; Stop 06/07/20 at 16:31; Status DC Ceftriaxone Sodium (Rocephin) 1 gm 1X ONCE IVP Last administered on 06/07/20at 18:29; Start 06/07/20 at 18:15; Stop 06/07/20 at 18:16; Status DC Azithromycin 250 ml @ 250 mls/hr 1X ONCE IV Last administered on 06/07/20at 18:30; Start 06/07/20 at 18:30; Stop 06/07/20 at 19:29; Status DC Sodium Chloride 500 ml @ 500 mls/hr 1X ONCE IV Last administered on 06/07/20at 20:13; Start 06/07/20 at 18:45; Stop 06/07/20 at 19:44; Status DC Iohexol (Omnipaque 350 Mg/ml) 80 ml 1X ONCE IV Last administered on 06/07/20at 19:44; Start 06/07/20 at 19:15; Stop 06/07/20 at 19:16; Status DC Info (CONTRAST GIVEN -- Rx MONITORING) 1 each PRN DAILY PRN MC SEE COMMENTS; Start 06/07/20 at 19:15; Stop 06/09/20 at 19:14; Status DC Ondansetron HCl (Zofran) 4 mg PRN Q8HRS PRN IV NAUSEA/VOMITING; Start 06/07/20 at 19:30; Stop 06/08/20 at 13:24; Status DC Acetaminophen (Tylenol) 650 mg PRN Q4HRS PRN PO FEVER > 100.3'F Last administered on 06/07/20at 23:41; Start 06/07/20 at 19:30; Stop 06/08/20 at 13:24; Status DC Insulin Human Lispro (HumaLOG) 0-5 UNITS TIDWMEALS SQ Last administered on 06/08/20at 17:06; Start 06/08/20 at 08:00 Dextrose (Dextrose 50%-Water Syringe) 12.5 gm PRN Q15MIN PRN IV SEE COMMENTS; Start 06/07/20 at 19:30 Furosemide (Lasix) 40 mg DAILY PO Last administered on 06/11/20at 09:43; Start 06/08/20 at 09:00 Oxybutynin Chloride (Ditropan) 5 mg BID PO Last administered on 06/11/20at 09:41; Start 06/08/20 at 09:00 Glipizide (Glucotrol Er) 5 mg DAILY08 PO Last administered on 06/11/20at 09:41; Start 06/08/20 at 08:00 Non-Formulary Medication (Insulin Aspart (Novolog Flexpen)) 1 unit TIDAC SQ ; Start 06/08/20 at 07:30; Status UNV Insulin Human Lispro (HumaLOG) 20 units TIDWMEALS SQ Last administered on 06/09/20 12:09; Start 06/08/20 at 08:00 Losartan Potassium (Cozaar) 50 mg DAILY PO Last administered on 06/11/20 09:42; Start 06/08/20 at 00:00 Potassium Chloride (Klor-Con) 10 meq DAILYWBKFT PO Last administered on 09:41; Start 06/08/20 at 08:00 Dexamethasone Sodium Phosphate (Maxidex) 2 drop QID OU Last administered on 06/11/20 09:40; Start 06/08/20 at 09:00 Sertraline HCl (Zoloft) 100 mg DAILY PO Last administered on 06/11/20 09:42; Start 06/08/20 at 09:00 Gabapentin (Neurontin) 600 mg DAILY PO Last administered on 06/11/20 09:42; Start 06/08/20 at 09:00 Hydrochlorothiazide (Microzide) 12.5 mg DAILY PO Last administered on 06/11/20 09:41; Start 06/08/20 at 09:00 Enalaprilat (Vasotec Inj) 1.25 mg Q6HRS IVP Last administered on 06/08/20 04:40; Start 06/08/20 at 06:00; Stop 06/08/20 at 04:59; Status DC Enalaprilat (Vasotec Inj) 1.25 mg PRN Q6HRS PRN IVP HTN; Start 06/08/20 at 11:00 Ondansetron HCl (Zofran) 4 mg PRN Q4HRS PRN IV NAUSEA/VOMITING; Start 06/08/20 at 13:30 Acetaminophen (Tylenol) 650 mg PRN Q6HRS PRN PO FEVER > 100.3'F Last administered on 06/09/20 08:19; Start 06/08/20 at 13:30 Dexamethasone Sodium Phosphate (Decadron) 6 mg DAILY IVP Last administered on 12/10/20at 09:45; Start 06/08/20 at 13:45 Zinc Sulfate (Orazinc) 220 mg DAILY PO Last administered on 06/11/20at 09:42; Start 06/08/20 at 14:00 Insulin Glargine (Lantus Syringe) 25 unit QHS SQ Last administered on 06/09/20at 21:17; Start 06/08/20 at 21:00 Remdesivir 200 mg/ Sodium Chloride 210 ml @ 210 mls/hr 1X ONCE IV Last administered on 06/09/20at 13:47; Start 06/09/20 at 13:00; Stop 06/09/20 at 13:59; Status DC Remdesivir 100 mg/ Sodium Chloride 230 ml @ 460 mls/hr Q24H IV Last administered on 06/10/20at 14:39; Start 06/10/20 at 13:00; Stop 06/13/20 at 13:29 Enoxaparin Sodium (Lovenox 40mg Syringe) 40 mg Q12HR SQ Last administered on 06/11/20at 09:40; Start 06/09/20 at 21:00 Guaifenesin (Mucinex) 600 mg BID PO Last administered on 06/11/20at 09:43; Start 06/09/20 at 21:00 Ascorbic Acid (Vitamin C) 500 mg DAILY PO Last administered on 06/11/20at 09:56; Start 06/11/20 at 10:00 Active Scripts Active Reported Sertraline Hcl 100 Mg Tablet 100 Mg PO DAILY Potassium Chloride 8 Meq Capsule.er 1 Cap PO DAILY Novolog Flexpen (Insulin Aspart) 100 Unit/1 Ml Insuln.pen 1 Unit SQ TIDAC Glipizide Er (Glipizide) 5 Mg Tab.er.24 1 Tab PO QAM Darifenacin ER (Darifenacin Hydrobromide) 7.5 Mg Tab.er.24h 1 Tab PO DAILY Losartan-Hctz 50-12.5 Mg Tab (Losartan/Hydrochlorothiazide) 1 Each Tablet 1 Tab PO DAILY Furosemide 40 Mg Tablet 1 Tab PO DAILY Prednisolone Acetate 5 Ml Drops.susp 2 Drop OU QID Gabapentin 300 Mg Capsule 600 Mg PO DAILY Novolog (Insulin Aspart) 100 Unit/1 Ml Cartridge 20 Unit SQ TIDAC Vitals/I & O Vital Sign - Last 24 Hours 06/10/20 06/10/20 06/10/20 12/9/20 10:29 11:00 12:15 14:49 Temp 99.2 99.1 99.2 99.1 Pulse 62 61 Resp 23 B/P (MAP) 162/68 (99) 164/72 (102) Pulse Ox 92 89 90 98 O2 Delivery BiPAP/CPAP NonRebreather Mask BiPAP/CPAP NonRebreather Mask O2 Flow Rate 15.0 15.0 06/10/20 06/10/20 06/10/20 06/10/20 15:17 19:00 20:00 20:14 Temp 98.6 98.6 Pulse 53 Resp 20 B/P (MAP) 153/84 (107) Pulse Ox 90 97 90 O2 Delivery BiPAP/CPAP Bi-pap BiPAP/CPAP O2 Flow Rate 15.0 06/10/20 06/11/20 06/11/20 06/11/20 23:00 00:26 03:00 04:23 Temp 98.4 98.6 98.4 98.6 Pulse 80 59 Resp 18 18 B/P (MAP) 172/73 (106) 169/72 (104) Pulse Ox 96 92 94 92 O2 Delivery BiPAP/CPAP BiPAP/CPAP BiPAP/CPAP O2 Flow Rate 15.0 15.0 06/11/20 06/11/20 06/11/20 07:00 07:30 09:42 Temp 97.9 97.9 Pulse 57 57 Resp 24 B/P (MAP) 146/63 (90) 146/63 Pulse Ox 92 92 O2 Delivery NonRebreather Mask BiPAP/CPAP O2 Flow Rate 15.0 Intake and Output 06/10/20 06/10/20 06/11/20 15:00 23:00 07:00 Intake Total 200 ml 0 ml Output Total 800 ml 1300 ml Balance 200 ml -800 ml -1300 ml Justicifation of Admission Dx: Justifications for Admission: Justification of Admission Dx: Yes (resp failure) JOSÉ MIGUEL NAVARRO MD Jun 11, 2020 10:29
--- NOTE | 2020-06-11 10:42 | PDOC ---
PULMONARY PROGRESS NOTES DATE: 06/11/20 TIME: 10:39 Subjective Patient is resting comfortably on 100% BiPAP Afebrile overnight No overnight concerns from nursing Vitals Vital Signs Date Time Temp Pulse Resp B/P (MAP) Pulse Ox O2 Delivery O2 Flow Rate FiO2 06/11/20 09:42 57 146/63 06/11/20 07:30 92 BiPAP/CPAP 06/11/20 07:00 97.9 24 15.0 97.9 Comments Patient seen during , visual exam performed Obesity On BiPAP 100% Regular rate and rhythm Bilateral lower extremity edema trace Lungs: Wheezing, Crackles Labs Laboratory Tests Test 06/09/20 16:12 06/09/20 19:24 06/10/20 08:12 06/10/20 08:50 Glucose (Fingerstick) 74 mg/dL (70-99) 128 mg/dL (70-99) 62 mg/dL (70-99) O2 Saturation 84 % (92-99) Arterial Blood pH 7.45 (7.35-7.45) Arterial Blood pCO2 at Patient Temp 47 mmHg (35-46) Arterial Blood pO2 at Patient Temp 46 mmHg (65-108) Arterial Blood HCO3 32 mmol/L (21-28) Arterial Blood Base Excess 7 mmol/L (-3-3) FiO2 100/nrb Test 06/10/20 11:45 06/10/20 16:51 06/10/20 19:58 06/11/20 08:04 Glucose (Fingerstick) 124 mg/dL (70-99) 177 mg/dL (70-99) 207 mg/dL (70-99) 109 mg/dL (70-99) Laboratory Tests Test 06/10/20 11:45 06/10/20 16:51 06/10/20 19:58 06/11/20 08:04 Glucose (Fingerstick) 124 mg/dL (70-99) 177 mg/dL (70-99) 207 mg/dL (70-99) 109 mg/dL (70-99) Medications Active Scripts Medications Dose Route/Sig Max Daily Dose Days Date Category Sertraline Hcl 100 Mg Tablet 100 Mg PO DAILY 06/07/20 Reported Potassium Chloride 8 Meq Capsule.er 1 Cap PO DAILY 06/07/20 Reported Novolog Flexpen (Insulin Aspart) 100 Unit/1 Ml Insuln.pen 1 Unit SQ TIDAC 06/07/20 Reported Glipizide Er (Glipizide) 5 Mg Tab.er.24 1 Tab PO QAM 06/07/20 Reported Darifenacin ER (Darifenacin Hydrobromide) 7.5 Mg Tab.er.24h 1 Tab PO DAILY 06/07/20 Reported Losartan-Hctz 50-12.5 Mg Tab (Losartan/Hydrochlorothiazide) 1 Each Tablet 1 Tab PO DAILY 06/07/20 Reported Furosemide 40 Mg Tablet 1 Tab PO DAILY 06/07/20 Reported Prednisolone Acetate 5 Ml Drops.susp 2 Drop OU QID 06/07/20 Reported Gabapentin 300 Mg Capsule 600 Mg PO DAILY 06/07/20 Reported Novolog (Insulin Aspart) 100 Unit/1 Ml Cartridge 20 Unit SQ TIDAC 03/25/16 Reported Comments CTA chest IMPRESSION: 1. There is no CT evidence of pulmonary embolus. 2. There are patchy groundglass opacities throughout the lungs with interspersed normal lung. Relative sparing of the basilar left lower lobe and the lung apices. There is no confluent consolidation. Considerations include pneumonia including atypical viral pneumonia, nonspecific pneumonitis, or drug toxicity. Impression . IMPRESSION: 1. Acute hypoxic respiratory failure secondary to acute lung injury, acute respiratory distress syndrome due to COVID-19 pneumonia. 2. COVID-[address] chest with diffuse extensive bilateral infiltrates. No evidence of pulmonary embolism. This finding is consistent with COVID-19 pneumonia. 4. Underlying morbid obesity contributing to hypoxia. 5. No significant tobacco use. Plan . RECOMMENDATIONS: Continue supplemental oxygen to keep oxygen saturations greater than 92%, currently on BiPAP 100%, patient is a full code monitor respiratory status closely for need for intubation Follow infectious disease recommendations Continue remdesivir for full 5-day course Continued steroids with slow taper will need full 10-day course Follow cultures, no growth to date DVT/GI prophylaxis Discussed with RN and RT. DEEDEE WARD MD Jun 11, 2020 10:42
[2020-06-11 11:00] VITALS: BP 143/63
[2020-06-11] MEDS: REMDESIVIR 100mg in NORMAL SALINE 250ML X 4 DAYS IV SCH (13:33)
[2020-06-11 15:00] VITALS: BP 140/94
[2020-06-11] MEDS: AMINO AC 3%/ELECTROLYTE/GLYCER 1,000 ML IV SCH (15:28)
--- NOTE | 2020-06-11 15:53 | NUR ---
SW following for discharge planning. Spoke with RN and reviewed chart. Pt remains on BiPap. Pt remains on IV Remdesivir, day 3. Pt not ready for discharge. SW following.
[2020-06-11 19:00] VITALS: BP 169/73
[2020-06-11] MEDS: INSULIN GLARGINE SYRINGE. SQ SCH (21:13)
[2020-06-11 23:00] VITALS: BP 162/69
[2020-06-12 03:00] VITALS: BP 178/77
[2020-06-12] MEDS: AMINO AC 3%/ELECTROLYTE/GLYCER 1,000 ML IV SCH ×2 (03:20→15:06)
[2020-06-12 07:00] VITALS: BP 153/69
[2020-06-12] MEDS: INSULIN LISPRO 300 UNITS/3 ML VIAL. SQ SCH ×6 (08:00→17:47)
[2020-06-12] MEDS: hydroCHLOROthiazide 12.5 MG CAPSULE PO SCH (08:33)
[2020-06-12] MEDS: ASCORBIC ACID 500 MG TABLET PO SCH (08:33)
[2020-06-12] MEDS: SERTRALINE 50 MG TABLET. PO SCH (08:33)
[2020-06-12] MEDS: GABAPENTIN 300 MG CAPSULE. PO SCH (08:33)
[2020-06-12] MEDS: ZINC SULFATE 220 MG CAPSULE. PO SCH (08:33)
[2020-06-12] MEDS: FUROSEMIDE 40 MG TABLET. PO SCH (08:34)
[2020-06-12] MEDS: POTASSIUM CHLORIDE 10 MEQ TABLET.ER. PO SCH (08:34)
[2020-06-12] MEDS: OXYBUTYNIN CHLORIDE 5 MG TABLET PO SCH ×2 (08:34→22:01)
[2020-06-12] MEDS: ENOXAPARIN 40 MG/0.4 ML SYRINGE. SQ SCH ×2 (08:35→22:01)
[2020-06-12] MEDS: DEXAMETHASONE SOD PHOS 4 MG/ML VIAL IVP SCH (08:36)
[2020-06-12] MEDS: glipiZIDE ER 2.5 MG TAB.ER.24 PO SCH (08:37)
[2020-06-12] MEDS: DEXAMETHASONE 0.1% OPHTH SOLUTION 5ML BOTTLE. OU SCH ×4 (08:38→22:11)
[2020-06-12] MEDS: LOSARTAN POTASSIUM 50 MG TABLET. PO SCH (08:58)
--- NOTE | 2020-06-12 10:00 | PDOC ---
Infectious Disease Note Subjective Subjective on bipap ROS ROS no n/v/d/fever Vital Sign Vital Signs Vital Signs Date Time Temp Pulse Resp B/P (MAP) Pulse Ox O2 Delivery O2 Flow Rate FiO2 06/12/20 08:58 57 153/69 06/12/20 07:05 91 BiPAP/CPAP 06/12/20 07:00 96.6 29 96.6 06/12/20 03:00 15.0 Physical Exam PHYSICAL EXAM GENERAL: Alert, oriented female, in mild distress. VITAL SIGNS: Stable, afebrile. HEENT: NAD. NECK: Supple, no JVP, no lymphadenopathy. LUNGS: Bibasilar crackles on BiPAP HEART: S1, S2 regular. ABDOMEN: Benign. EXTREMITIES: No edema, cyanosis. SKIN: Unremarkable. NEUROLOGIC: Flat affect very sleepy Labs Lab Laboratory Tests Test 06/11/20 11:44 06/11/20 16:57 06/11/20 20:42 06/12/20 08:04 Glucose (Fingerstick) 96 mg/dL (70-99) 260 mg/dL (70-99) 289 mg/dL (70-99) 196 mg/dL (70-99) Micro Microbiology 06/08/20 Blood Culture - Preliminary, Resulted NO GROWTH AFTER 1 DAY Objective Assessment IMPRESSION: 1. COVID-19 positive. 2. COVID-19 pneumonia. 3. Respiratory failure. 4. Obesity. 5. Chronic obstructive pulmonary disease. 6. Hypertension. 7. Diabetes. Plan Plan of Care cont current treatment supportive care bipap Overall prognosis poor GAVIN ELIAS MD Jun 12, 2020 10:00
--- NOTE | 2020-06-12 10:39 | PDOC ---
PULMONARY PROGRESS NOTES DATE: 06/12/20 TIME: 10:38 Subjective Patient is resting comfortably on 100% BiPAP Reports some mild shortness of breath and fatigue Afebrile overnight No overnight concerns from nursing Vitals Vital Signs Date Time Temp Pulse Resp B/P (MAP) Pulse Ox O2 Delivery O2 Flow Rate FiO2 06/12/20 08:58 57 153/69 06/12/20 07:05 91 BiPAP/CPAP 06/12/20 07:00 96.6 29 96.6 06/12/20 03:00 15.0 Comments Patient seen during COVID- pandemic, visual exam performed Obesity On BiPAP 100% Regular rate and rhythm Bilateral lower extremity edema trace Lungs: Crackles Labs Laboratory Tests Test 06/10/20 11:45 06/10/20 16:51 06/10/20 19:58 06/11/20 08:04 Glucose (Fingerstick) 124 mg/dL (70-99) 177 mg/dL (70-99) 207 mg/dL (70-99) 109 mg/dL (70-99) Test 06/11/20 11:44 06/11/20 16:57 06/11/20 20:42 06/12/20 08:04 Glucose (Fingerstick) 96 mg/dL (70-99) 260 mg/dL (70-99) 289 mg/dL (70-99) 196 mg/dL (70-99) Laboratory Tests Test 06/11/20 11:44 06/11/20 16:57 06/11/20 20:42 06/12/20 08:04 Glucose (Fingerstick) 96 mg/dL (70-99) 260 mg/dL (70-99) 289 mg/dL (70-99) 196 mg/dL (70-99) Medications Active Scripts Medications Dose Route/Sig Max Daily Dose Days Date Category Sertraline Hcl 100 Mg Tablet 100 Mg PO DAILY 06/07/20 Reported Potassium Chloride 8 Meq Capsule.er 1 Cap PO DAILY 06/07/20 Reported Novolog Flexpen (Insulin Aspart) 100 Unit/1 Ml Insuln.pen 1 Unit SQ TIDAC 06/07/20 Reported Glipizide Er (Glipizide) 5 Mg Tab.er.24 1 Tab PO QAM 06/07/20 Reported Darifenacin ER (Darifenacin Hydrobromide) 7.5 Mg Tab.er.24h 1 Tab PO DAILY 06/07/20 Reported Losartan-Hctz 50-12.5 Mg Tab (Losartan/Hydrochlorothiazide) 1 Each Tablet 1 Tab PO DAILY 06/07/20 Reported Furosemide 40 Mg Tablet 1 Tab PO DAILY 06/07/20 Reported Prednisolone Acetate 5 Ml Drops.susp 2 Drop OU QID 06/07/20 Reported Gabapentin 300 Mg Capsule 600 Mg PO DAILY 06/07/20 Reported Novolog (Insulin Aspart) 100 Unit/1 Ml Cartridge 20 Unit SQ TIDAC 03/25/16 Reported Comments CTA chest IMPRESSION: 1. There is no CT evidence of pulmonary embolus. 2. There are patchy groundglass opacities throughout the lungs with interspersed normal lung. Relative sparing of the basilar left lower lobe and the lung apices. There is no confluent consolidation. Considerations include pneumonia including atypical viral pneumonia, nonspecific pneumonitis, or drug toxicity. Impression . IMPRESSION: 1. Acute hypoxic respiratory failure secondary to acute lung injury, acute respiratory distress syndrome due to COVID-19 pneumonia. 2. COVID-[address] chest with diffuse extensive bilateral infiltrates. No evidence of pulmonary embolism. This finding is consistent with COVID-19 pneumonia. 4. Underlying morbid obesity contributing to hypoxia. 5. No significant tobacco use. Plan . RECOMMENDATIONS: Continue supplemental oxygen to keep oxygen saturations greater than 92%, currently on BiPAP 100%, patient is a full code monitor respiratory status closely for need for intubation Follow infectious disease recommendations, currently off antibiotics Continue remdesivir for full 5-day course Continued steroids with slow taper will need full 10-day course Follow cultures, no growth to date Continue PPN for nutritional support d/w patient about advance directives. Full code. would transfer to ICU for close observation once bed available. d/w ICU hot car charger. DVT/GI prophylaxis Discussed with RN and RT. DEEDEE WARD MD Jun 12, 2020 10:39
[2020-06-12 11:00] VITALS: BP 171/73
--- NOTE | 2020-06-12 11:34 | PDOC ---
PROGRESS NOTES Date of Service: DATE: 06/12/20 TIME: 11:33 Chief Complaint Chief Complaint Acute respiratory failure with Hypoxia - related to COVID 19 + acute bronchitis Pneumonia due to 2019 novel coronavirus Acute exacerbation of COPD with bronchitis Elevated d-dimer DM2 (A1c 7.7) Depression COPD HTN Stress incontinence Morbid obesity , BMI 48.6 with also Severe protein calorie malnutrition History of Present Illness History of Present Illness 06/12. still on resp support, very hypoxic, but comfortable no acute change, ID and pulm following, cont current not improving, prognosis worsens with lack of improvement over time 06/11, now on the BIPAP, has declined, ID and PULM following, cont other managemnt 06/10/2020 Patient seen and examined on the [place] [id number] floor She is on BiPAP Started on remdesivir as well per pulmonary Discussed with case management Discussed with RN Chart reviewed She is extremely ill 06/09/2020 Patient seen and examined on the [place] [id number] floor She is on 100% nonrebreather appears quite ill Discussed with case management Discussed with RN Chart reviewed Vitals Vitals Vital Signs Date Time Temp Pulse Resp B/P (MAP) Pulse Ox O2 Delivery O2 Flow Rate FiO2 06/12/20 11:10 91 BiPAP/CPAP 06/12/20 11:00 97.1 58 26 171/73 (105) 97.1 06/12/20 08:00 15.0 Physical Exam Physical Exam GENERAL: Alert, oriented female, in mild distress. VITAL SIGNS: Stable, afebrile. HEENT: NAD. NECK: Supple, no JVP, no lymphadenopathy. LUNGS: Bibasilar crackles on BiPAP HEART: S1, S2 regular. ABDOMEN: Benign. EXTREMITIES: No edema, cyanosis. SKIN: Unremarkable. NEUROLOGIC: Flat affect very sleepy General: Alert, Cooperative, mild distress, moderate distress, Other (On BiPAP) Heart: Other (Tachycardic) Lungs: Crackles Abdomen: Normal bowel sounds, Soft, No tenderness, No hepatosplenomegaly, No masses Extremities: No clubbing, No cyanosis, No edema, Normal pulses, No tenderness/swelling Skin: No rashes, No breakdown, No significant lesion Labs LABS Laboratory Tests Test 06/11/20 11:44 06/11/20 16:57 06/11/20 20:42 06/12/20 08:04 Glucose (Fingerstick) 96 mg/dL (70-99) 260 mg/dL (70-99) 289 mg/dL (70-99) 196 mg/dL (70-99) Assessment and Plan Assessmemt and Plan Problems Medical Problems: (1) Elevated d-dimer Status: Acute (2) Hypoxia Status: Acute (3) Pneumonia due to 2019 novel coronavirus Status: Acute Comment Review of Relevant I have reviewed the following items angel luis (where applicable) has been applied. Labs Laboratory Tests Test 06/10/20 11:45 06/10/20 16:51 06/10/20 19:58 06/11/20 08:04 Glucose (Fingerstick) 124 mg/dL (70-99) 177 mg/dL (70-99) 207 mg/dL (70-99) 109 mg/dL (70-99) Test 06/11/20 11:44 06/11/20 16:57 06/11/20 20:42 06/12/20 08:04 Glucose (Fingerstick) 96 mg/dL (70-99) 260 mg/dL (70-99) 289 mg/dL (70-99) 196 mg/dL (70-99) Laboratory Tests Test 06/11/20 11:44 06/11/20 16:57 06/11/20 20:42 06/12/20 08:04 Glucose (Fingerstick) 96 mg/dL (70-99) 260 mg/dL (70-99) 289 mg/dL (70-99) 196 mg/dL (70-99) Microbiology 06/08/20 Blood Culture - Preliminary, Resulted NO GROWTH AFTER 4 DAYS Medications Current Medications Sodium Chloride 500 ml @ 500 mls/hr 1X ONCE IV Last administered on 06/07/20at 16:29; Start 06/07/20 at 16:30; Stop 06/07/20 at 17:29; Status DC Dexamethasone Sodium Phosphate (Decadron) 10 mg 1X ONCE IV Last administered on 06/07/20at 16:30; Start 06/07/20 at 16:30; Stop 06/07/20 at 16:31; Status DC Ceftriaxone Sodium (Rocephin) 1 gm 1X ONCE IVP Last administered on 06/07/20at 18:29; Start 06/07/20 at 18:15; Stop 06/07/20 at 18:16; Status DC Azithromycin 250 ml @ 250 mls/hr 1X ONCE IV Last administered on 06/07/20at 18:30; Start 06/07/20 at 18:30; Stop 06/07/20 at 19:29; Status DC Sodium Chloride 500 ml @ 500 mls/hr 1X ONCE IV Last administered on 06/07/20at 20:13; Start 06/07/20 at 18:45; Stop 06/07/20 at 19:44; Status DC Iohexol (Omnipaque 350 Mg/ml) 80 ml 1X ONCE IV Last administered on 06/07/20at 19:44; Start 06/07/20 at 19:15; Stop 06/07/20 at 19:16; Status DC Info (CONTRAST GIVEN -- Rx MONITORING) 1 each PRN DAILY PRN MC SEE COMMENTS; Start 06/07/20 at 19:15; Stop 06/09/20 at 19:14; Status DC Ondansetron HCl (Zofran) 4 mg PRN Q8HRS PRN IV NAUSEA/VOMITING; Start 06/07/20 at 19:30; Stop 06/08/20 at 13:24; Status DC Acetaminophen (Tylenol) 650 mg PRN Q4HRS PRN PO FEVER > 100.3'F Last administered on 06/07/20at 23:41; Start 06/07/20 at 19:30; Stop 06/08/20 at 13:24; Status DC Insulin Human Lispro (HumaLOG) 0-5 UNITS TIDWMEALS SQ Last administered on 06/08/20at 17:06; Start 06/08/20 at 08:00 Dextrose (Dextrose 50%-Water Syringe) 12.5 gm PRN Q15MIN PRN IV SEE COMMENTS; Start 06/07/20 at 19:30 Furosemide (Lasix) 40 mg DAILY PO Last administered on 06/12/20at 08:34; Start 06/08/20 at 09:00 Oxybutynin Chloride (Ditropan) 5 mg BID PO Last administered on 06/12/20at 08:34; Start 06/08/20 at 09:00 Glipizide (Glucotrol Er) 5 mg DAILY08 PO Last administered on 06/12/20at 08:37; Start 06/08/20 at 08:00 Non-Formulary Medication (Insulin Aspart (Novolog Flexpen)) 1 unit TIDAC SQ ; Start 06/08/20 at 07:30; Status UNV Insulin Human Lispro (HumaLOG) 20 units TIDWMEALS SQ Last administered on 06/09/20 12:09; Start 06/08/20 at 08:00 Losartan Potassium (Cozaar) 50 mg DAILY PO Last administered on 06/12/20 08:58; Start 06/08/20 at 00:00 Potassium Chloride (Klor-Con) 10 meq DAILYWBKFT PO Last administered on 06/12/20 08:34; Start 06/08/20 at 08:00 Dexamethasone Sodium Phosphate (Maxidex) 2 drop QID OU Last administered on 06/12/20 08:38; Start 06/08/20 at 09:00 Sertraline HCl (Zoloft) 100 mg DAILY PO Last administered on 06/12/20 08:33; Start 06/08/20 at 09:00 Gabapentin (Neurontin) 600 mg DAILY PO Last administered on 06/12/20 08:33; Start 06/08/20 at 09:00 Hydrochlorothiazide (Microzide) 12.5 mg DAILY PO Last administered on 06/12/20 08:33; Start 06/08/20 at 09:00 Enalaprilat (Vasotec Inj) 1.25 mg Q6HRS IVP Last administered on 06/08/20 04:40; Start 06/08/20 at 06:00; Stop 06/08/20 at 04:59; Status DC Enalaprilat (Vasotec Inj) 1.25 mg PRN Q6HRS PRN IVP HTN; Start 06/08/20 at 11:00 Ondansetron HCl (Zofran) 4 mg PRN Q4HRS PRN IV NAUSEA/VOMITING; Start 06/08/20 at 13:30 Acetaminophen (Tylenol) 650 mg PRN Q6HRS PRN PO FEVER > 100.3'F Last administered on 06/09/20 08:19; Start 06/08/20 at 13:30 Dexamethasone Sodium Phosphate (Decadron) 6 mg DAILY IVP Last administered on 06/12/20 08:36; Start 06/08/20 at 13:45 Zinc Sulfate (Orazinc) 220 mg DAILY PO Last administered on 06/12/20at 08:33; Start 06/08/20 at 14:00 Insulin Glargine (Lantus Syringe) 25 unit QHS SQ Last administered on 06/11/20a t 21:13; Start 06/08/20 at 21:00 Remdesivir 200 mg/ Sodium Chloride 210 ml @ 210 mls/hr 1X ONCE IV Last administered on 06/09/20at 13:47; Start 06/09/20 at 13:00; Stop 06/09/20 at 13:59; Status DC Remdesivir 100 mg/ Sodium Chloride 230 ml @ 460 mls/hr Q24H IV Last administered on 06/11/20at 13:33; Start 06/10/20 at 13:00; Stop 06/13/20 at 13:29 Enoxaparin Sodium (Lovenox 40mg Syringe) 40 mg Q12HR SQ Last administered on 06/12/20at 08:35; Start 06/09/20 at 21:00 Guaifenesin (Mucinex) 600 mg BID PO Last administered on 06/12/20at 08:33; Start 06/09/20 at 21:00 Ascorbic Acid (Vitamin C) 500 mg DAILY PO Last administered on 06/12/20at 08:33; Start 06/11/20 at 10:00 Amino Acids/ Glycerin/ Electrolytes 1,000 ml @ 80 mls/hr [id number] IV Last administered on 06/12/20at 03:20; Start 06/11/20 at 11:00 Active Scripts Active Reported Sertraline Hcl 100 Mg Tablet 100 Mg PO DAILY Potassium Chloride 8 Meq Capsule.er 1 Cap PO DAILY Novolog Flexpen (Insulin Aspart) 100 Unit/1 Ml Insuln.pen 1 Unit SQ TIDAC Glipizide Er (Glipizide) 5 Mg Tab.er.24 1 Tab PO QAM Darifenacin ER (Darifenacin Hydrobromide) 7.5 Mg Tab.er.24h 1 Tab PO DAILY Losartan-Hctz 50-12.5 Mg Tab (Losartan/Hydrochlorothiazide) 1 Each Tablet 1 Tab PO DAILY Furosemide 40 Mg Tablet 1 Tab PO DAILY Prednisolone Acetate 5 Ml Drops.susp 2 Drop OU QID Gabapentin 300 Mg Capsule 600 Mg PO DAILY Novolog (Insulin Aspart) 100 Unit/1 Ml Cartridge 20 Unit SQ TIDAC Vitals/I & O Vital Sign - Last 24 Hours 06/11/20 06/11/20 06/11/20 06/11/20 15:00 15:31 19:00 20:00 Temp 98.6 98.7 98.6 98.7 Pulse 65 59 Resp 24 21 B/P (MAP) 140/94 (109) 169/73 (105) Pulse Ox 90 92 93 O2 Delivery NonRebreather Mask BiPAP/CPAP BiPAP/CPAP Bi-pap O2 Flow Rate 15.0 15.0 15.0 06/11/20 06/11/20 06/11/20 06/12/20 20:21 23:00 23:50 03:00 Temp 97.9 98.6 97.9 98.6 Pulse 57 56 Resp 18 21 B/P (MAP) 162/69 (100) 178/77 (110) Pulse Ox 85 92 92 90 O2 Delivery BiPAP/CPAP BiPAP/CPAP BiPAP/CPAP O2 Flow Rate 15.0 15.0 06/12/20 06/12/20 06/12/20 06/12/20 03:36 07:00 07:05 08:00 Temp 96.6 96.6 Pulse 60 Resp 29 B/P (MAP) 153/69 (97) Pulse Ox 85 94 91 O2 Delivery BiPAP/CPAP High Flow Nasal Cannula BiPAP/CPAP Bi-pap O2 Flow Rate 15.0 06/12/20 06/12/20 06/12/20 08:58 11:00 11:10 Temp 97.1 97.1 Pulse 57 58 Resp 26 B/P (MAP) 153/69 171/73 (105) Pulse Ox 96 91 O2 Delivery BiPAP/CPAP BiPAP/CPAP Intake and Output 06/11/20 06/11/20 06/12/20 15:00 23:00 07:00 Intake Total 0 ml 230 ml 400 ml Output Total 1750 ml Balance 0 ml 230 ml -1350 ml Justicifation of Admission Dx: Justifications for Admission: Justification of Admission Dx: Yes (resp failure) JOSÉ MIGUEL NAVARRO MD Jun 12, 2020 11:34
[2020-06-12] MEDS: REMDESIVIR 100mg in NORMAL SALINE 250ML X 4 DAYS IV SCH (12:49)
[2020-06-12 15:00] VITALS: BP 155/67
--- NOTE | 2020-06-12 17:09 | NUR ---
SW following for discharge planning. Spoke with RN and reviewed chart. Pt remains on BiPap and IV Remdesivir. Pt will need a 6 min walk prior to discharge. Pt not ready for discharge.
[2020-06-12 19:05] VITALS: BP 157/66
[2020-06-12] MEDS: INSULIN GLARGINE SYRINGE. SQ SCH (22:02)
[2020-06-12 23:05] VITALS: BP 155/67
[2020-06-13] VITALS (13 sets, daily range): BP systolic 91–183; BP diastolic 50–77
[2020-06-13] MEDS: AMINO AC 3%/ELECTROLYTE/GLYCER 1,000 ML IV SCH ×2 (00:59→12:15)
[2020-06-13] MEDS: INSULIN LISPRO 300 UNITS/3 ML VIAL. SQ SCH ×6 (08:00→17:00)
[2020-06-13] MEDS: DEXAMETHASONE 0.1% OPHTH SOLUTION 5ML BOTTLE. OU SCH ×4 (08:17→20:41)
[2020-06-13] MEDS: GABAPENTIN 300 MG CAPSULE. PO SCH (08:17)
[2020-06-13] MEDS: ZINC SULFATE 220 MG CAPSULE. PO SCH (08:17)
[2020-06-13] MEDS: glipiZIDE ER 2.5 MG TAB.ER.24 PO SCH (08:17)
[2020-06-13] MEDS: ASCORBIC ACID 500 MG TABLET PO SCH (08:17)
[2020-06-13] MEDS: POTASSIUM CHLORIDE 10 MEQ TABLET.ER. PO SCH (08:18)
[2020-06-13] MEDS: OXYBUTYNIN CHLORIDE 5 MG TABLET PO SCH ×2 (08:18→20:40)
[2020-06-13] MEDS: FUROSEMIDE 40 MG TABLET. PO SCH (08:18)
[2020-06-13] MEDS: hydroCHLOROthiazide 12.5 MG CAPSULE PO SCH (08:18)
[2020-06-13] MEDS: SERTRALINE 50 MG TABLET. PO SCH (08:18)
[2020-06-13] MEDS: LOSARTAN POTASSIUM 50 MG TABLET. PO SCH (08:19)
[2020-06-13] MEDS: ENOXAPARIN 40 MG/0.4 ML SYRINGE. SQ SCH ×2 (08:22→20:40)
[2020-06-13] MEDS: DEXAMETHASONE SOD PHOS 4 MG/ML VIAL IVP SCH ×2 (08:22→17:43)
--- NOTE | 2020-06-13 08:41 | PDOC ---
Infectious Disease Note Subjective Subjective on bipap ROS ROS No nausea vomiting diarrhea or fever Vital Sign Vital Signs Vital Signs Date Time Temp Pulse Resp B/P (MAP) Pulse Ox O2 Delivery O2 Flow Rate FiO2 06/13/20 08:24 95 BiPAP/CPAP 06/13/20 08:19 58 150/66 06/13/20 07:00 97.6 31 97.6 06/12/20 20:00 15.0 Physical Exam PHYSICAL EXAM GENERAL: Alert, oriented female, in mild distress. VITAL SIGNS: Stable, afebrile. HEENT: NAD. NECK: Supple, no JVP, no lymphadenopathy. LUNGS: Bibasilar crackles on BiPAP HEART: S1, S2 regular. ABDOMEN: Benign. EXTREMITIES: No edema, cyanosis. SKIN: Unremarkable. NEUROLOGIC: Flat affect very sleepy Labs Lab Laboratory Tests Test 06/12/20 11:54 06/12/20 17:45 06/13/20 07:16 Glucose (Fingerstick) 213 mg/dL (70-99) 319 mg/dL (70-99) 169 mg/dL (70-99) Micro Microbiology 06/08/20 Blood Culture - Preliminary, Resulted NO GROWTH AFTER 1 DAY Objective Assessment IMPRESSION: 1. COVID-19 positive. 2. COVID-19 pneumonia. 3. Respiratory failure. 4. Obesity. 5. Chronic obstructive pulmonary disease. 6. Hypertension. 7. Diabetes. Plan Plan of Care cont current treatment supportive care bipap Overall prognosis poor GAVIN ELIAS MD Jun 13, 2020 08:41
--- NOTE | 2020-06-13 12:26 | PDOC ---
PULMONARY PROGRESS NOTES DATE: 06/13/20 TIME: 12:24 Subjective Patient is resting comfortably on 100% BiPAP desats easily off bipap is alert feeling better, Vitals Vital Signs Date Time Temp Pulse Resp B/P (MAP) Pulse Ox O2 Delivery O2 Flow Rate FiO2 06/13/20 12:09 94 BiPAP/CPAP 06/13/20 11:00 98.0 60 20 175/76 (109) 98.0 06/13/20 08:00 15.0 Comments Patient seen during COVID-, visual exam performed Obesity On BiPAP 100% Regular rate and rhythm Bilateral lower extremity edema trace Lungs: Crackles Labs Laboratory Tests Test 06/11/20 16:57 06/11/20 20:42 06/12/20 08:04 06/12/20 11:54 Glucose (Fingerstick) 260 mg/dL (70-99) 289 mg/dL (70-99) 196 mg/dL (70-99) 213 mg/dL (70-99) Test 06/12/20 17:45 06/13/20 07:16 06/13/20 11:42 Glucose (Fingerstick) 319 mg/dL (70-99) 169 mg/dL (70-99) 101 mg/dL (70-99) Laboratory Tests Test 06/12/20 17:45 06/13/20 07:16 06/13/20 11:42 Glucose (Fingerstick) 319 mg/dL (70-99) 169 mg/dL (70-99) 101 mg/dL (70-99) Medications Active Scripts Medications Dose Route/Sig Max Daily Dose Days Date Category Sertraline Hcl 100 Mg Tablet 100 Mg PO DAILY 06/07/20 Reported Potassium Chloride 8 Meq Capsule.er 1 Cap PO DAILY 06/07/20 Reported Novolog Flexpen (Insulin Aspart) 100 Unit/1 Ml Insuln.pen 1 Unit SQ TIDAC 06/07/20 Reported Glipizide Er (Glipizide) 5 Mg Tab.er.24 1 Tab PO QAM 06/07/20 Reported Darifenacin ER (Darifenacin Hydrobromide) 7.5 Mg Tab.er.24h 1 Tab PO DAILY 06/07/20 Reported Losartan-Hctz 50-12.5 Mg Tab (Losartan/Hydrochlorothiazide) 1 Each Tablet 1 Tab PO DAILY 06/07/20 Reported Furosemide 40 Mg Tablet 1 Tab PO DAILY 06/07/20 Reported Prednisolone Acetate 5 Ml Drops.susp 2 Drop OU QID 06/07/20 Reported Gabapentin 300 Mg Capsule 600 Mg PO DAILY 06/07/20 Reported Novolog (Insulin Aspart) 100 Unit/1 Ml Cartridge 20 Unit SQ TIDAC 03/25/16 Reported Comments CTA chest IMPRESSION: 1. There is no CT evidence of pulmonary embolus. 2. There are patchy groundglass opacities throughout the lungs with interspersed normal lung. Relative sparing of the basilar left lower lobe and the lung apices. There is no confluent consolidation. Considerations include pneumonia including atypical viral pneumonia, nonspecific pneumonitis, or drug toxicity. Impression . IMPRESSION: 1. Acute hypoxic respiratory failure secondary to acute lung injury, acute respiratory distress syndrome due to COVID-19 pneumonia. 2. COVID-[address] chest with diffuse extensive bilateral infiltrates. No evidence of pulmonary embolism. This finding is consistent with COVID-19 pneumonia. 4. Underlying morbid obesity contributing to hypoxia. 5. No significant tobacco use. Plan . RECOMMENDATIONS: 02 titration to keep sat 92%, currently on BiPAP 100%, patient is a full code monitor respiratory status closely for need for intubation Follow infectious disease recommendations, currently off antibiotics Continue remdesivir for full 5-day course Continued steroids with slow taper will need full 10-day course Follow cultures, no growth to date Continue PPN for nutritional support d/w patient about advance directives. Full code. would transfer to ICU for close observation once bed available. DVT/GI prophylaxis Discussed with RN and RT. ERICA FORD MD Jun 13, 2020 12:26
--- NOTE | 2020-06-13 12:54 | PDOC ---
GENERAL General: Patient examined chart reviewed today's hospital day 7 for this patient with ac [place] hypoxic respiratory failure secondary to Covid pneumonia diagnosed on June 01. She is requiring full-time BiPAP to keep her oxygen saturation up over 90%. Pulmonary and infectious diseases are following closely and their assistance is appreciated. Patient has had her other advanced treatments completed. I have discussed with pulmonary and we will treat with one-time dose of lorazepam 0.5 IV she does seem frightened on my evaluation this morning. We will continue current management otherwise. Problems: (1) Acute respiratory failure with hypoxia (2) Pneumonia due to 2019 novel coronavirus VITAL SIGNS Vital Signs/I&O: Vital Signs Date Time Temp Pulse Resp B/P (MAP) Pulse Ox O2 Delivery O2 Flow Rate FiO2 06/13/20 12:09 94 BiPAP/CPAP 06/13/20 11:00 98.0 60 20 175/76 (109) 98.0 06/13/20 08:00 15.0 I & O 06/12/20 06/12/20 06/13/20 15:00 23:00 07:00 Intake Total 100 ml 380 ml 0 ml Output Total 900 ml 650 ml 700 ml Balance -800 ml -270 ml -700 ml Patient is resting comfortably on 100% O2 with BiPAP. She is a little agitated on my assessment earlier today looks frightened Chest dyspneic bilateral equal air entry though diminished throughout no crackles or wheezes are noted Heart S1-S2 normal tachycardic no murmurs or gallops are noted Abdomen soft nontender nondistended no masses organomegaly noted Extremity exam is unremarkable for acute abnormality ALLERGIES Allergies: Allergies Coded Allergies Type Severity Reaction Last Updated Verified colestipol Allergy Intermediate 06/07/20 Yes nitrofurantoin Allergy Intermediate rash 06/07/20 Yes codeine Allergy Mild vomiting 03/25/16 Yes MEDS Medications: Current Medications Medications (Trade) Dose Ordered Sig/[facility] Start Time Stop Time Status Last Admin Dose Admin Acetaminophen (Tylenol) 650 mg PRN Q6HRS PRN 06/08/20 13:30 06/09/20 08:19 Amino Acids/ Glycerin/ Electrolytes 1,000 ml @ 80 mls/hr [id number] 06/11/20 11:00 06/13/20 12:15 Ascorbic Acid (Vitamin C) 500 mg DAILY 06/11/20 10:00 06/13/20 08:17 Azithromycin 250 ml @ 250 mls/hr 1X ONCE 06/07/20 18:30 06/07/20 19:29 DC 06/07/20 18:30 Ceftriaxone Sodium (Rocephin) 1 gm 1X ONCE 06/07/20 18:15 06/07/20 18:16 DC 06/07/20 18:29 Dexamethasone Sodium Phosphate (Decadron) 6 mg DAILY 06/08/20 13:45 06/13/20 08:22 Dexamethasone Sodium Phosphate (Maxidex) 2 drop QID 06/08/20 09:00 06/13/20 12:16 Dextrose (Dextrose 50%-Water Syringe) 12.5 gm PRN Q15MIN PRN 06/07/20 19:30 Enalaprilat (Vasotec Inj) 1.25 mg PRN Q6HRS PRN 06/08/20 11:00 Enoxaparin Sodium (Lovenox 40mg Syringe) 40 mg Q12HR 06/09/20 21:00 06/13/20 08:22 Furosemide (Lasix) 40 mg DAILY 06/08/20 09:00 06/13/20 08:18 Gabapentin (Neurontin) 600 mg DAILY 06/08/20 09:00 06/13/20 08:17 Glipizide (Glucotrol Er) 5 mg DAILY08 06/08/20 08:00 06/13/20 08:17 Guaifenesin (Mucinex) 600 mg BID 06/09/20 21:00 06/13/20 08:17 Hydrochlorothiazide (Microzide) 12.5 mg DAILY 06/08/20 09:00 06/13/20 08:18 Info (CONTRAST GIVEN -- Rx MONITORING) 1 each PRN DAILY PRN 06/07/20 19:15 06/09/20 19:14 DC Insulin Glargine (Lantus Syringe) 25 unit QHS 06/08/20 21:00 06/12/20 22:02 Insulin Human Lispro (HumaLOG) 20 units TIDWMEALS 06/08/20 08:00 06/13/20 08:24 Iohexol (Omnipaque 350 Mg/ml) 80 ml 1X ONCE 06/07/20 19:15 06/07/20 19:16 DC 06/07/20 19:44 Losartan Potassium (Cozaar) 50 mg DAILY 06/08/20 00:00 06/13/20 08:19 Non-Formulary Medication (Insulin Aspart (Novolog Flexpen)) 1 unit TIDAC 06/08/20 07:30 UNV Ondansetron HCl (Zofran) 4 mg PRN Q4HRS PRN 06/08/20 13:30 Oxybutynin Chloride (Ditropan) 5 mg BID 06/08/20 09:00 06/13/20 08:18 Potassium Chloride (Klor-Con) 10 meq DAILYWBKFT 06/08/20 08:00 06/13/20 08:18 Remdesivir 100 mg/ Sodium Chloride 230 ml @ 460 mls/hr Q24H 06/10/20 13:00 06/13/20 13:29 06/12/20 12:49 Remdesivir 200 mg/ Sodium Chloride 210 ml @ 210 mls/hr 1X ONCE 06/09/20 13:00 06/09/20 13:59 DC 06/09/20 13:47 Sertraline HCl (Zoloft) 100 mg DAILY 06/08/20 09:00 06/13/20 08:18 Sodium Chloride 500 ml @ 500 mls/hr 1X ONCE 06/07/20 18:45 06/07/20 19:44 DC 06/07/20 20:13 Zinc Sulfate (Orazinc) 220 mg DAILY 06/08/20 14:00 06/13/20 08:17 LAB Lab: Laboratory Tests Test 06/12/20 17:45 06/13/20 07:16 06/13/20 11:42 Glucose (Fingerstick) 319 mg/dL (70-99) H 169 mg/dL (70-99) H 101 mg/dL (70-99) H ASSESSMENT & PLAN A&P Plan as noted above This note was created using [employer] and may have omissions and/or errors due to the nature of real-time voice harvest field ticketer. Justifications for Admission Other Justification LUIS SPENCE MD Jun 13, 2020 12:54
[2020-06-13] MEDS: REMDESIVIR 100mg in NORMAL SALINE 250ML X 4 DAYS IV SCH (13:19)
--- NOTE | 2020-06-13 14:30 | NUR ---
PT TRANSFERRED TO ROOM [address] FORD. SON WAS NOTIFIED.
[2020-06-13] MEDS: INSULIN GLARGINE SYRINGE. SQ SCH (20:41)
[2020-06-14] VITALS (24 sets, daily range): BP systolic 114–153; BP diastolic 43–72
--- NOTE | 2020-06-14 02:37 | NUR ---
When assessing patient's coccyx, this RN noted dressing to pts left buttock. Dressing dated 06/12/2020. Dressing removed and approximately 1x1cm ulcer noted to the site. Pts coccyx also noted to be red nonblanchable. Wound care consult ordered. Site covered with new foam dressing. Patient is being assisted with turns. Will pass on and continue to monitor. Addendum: 06/14/20 at 0241 by STEPHON MORA RN RN Amended: Links added.
[2020-06-14] MEDS: AMINO AC 3%/ELECTROLYTE/GLYCER 1,000 ML IV SCH ×2 (03:30→16:16)
[2020-06-14 06:10] LABS: BASO % 0 % (0-3); EOS % 0 % (0-3); HEMATOCRIT 39.4 % (36.0-47.0); HEMOGLOBIN 13.1 g/dL (12.0-15.5); LYMPH # 0.5 x10^3/uL (1.0-4.8); LYMPH % 4 % (24-48); MEAN CORPUSCULAR HEMOGLOBIN 29 pg (25-35); MEAN CORPUSCULAR HGB CONC 33 g/dL (31-37); MEAN CORPUSCULAR VOLUME 88 fL (79-100); MONO # 0.4 x10^3/uL (0.0-1.1); MONO % 4 % (0-9); NEUT # 9.5 x10^3/uL (1.8-7.7); NEUT % 92 % (31-73); PLATELET COUNT 310 x10^3/uL (140-400); RED BLOOD COUNT 4.46 x10^6/uL (3.50-5.40); RED CELL DISTRIBUTION WIDTH 13.8 % (11.5-14.5); WHITE BLOOD COUNT 10.4 x10^3/uL (4.0-11.0)
--- NOTE | 2020-06-14 06:11 | PDOC ---
PULMONARY PROGRESS NOTES DATE: 06/14/20 TIME: 06:04 Subjective on bipap desat off bipap alert appears comfortable feels better Vitals Vital Signs Date Time Temp Pulse Resp B/P (MAP) Pulse Ox O2 Delivery O2 Flow Rate FiO2 06/14/20 05:15 95 BiPAP/CPAP 06/14/20 05:00 58 28 153/57 (89) 06/14/20 04:00 97.8 97.8 06/13/20 08:00 15.0 Comments Patient seen during , visual exam performed Obesity On BiPAP Regular rate and rhythm no accessory muscle use Bilateral lower extremity edema trace Lungs: Crackles Labs Laboratory Tests Test 06/12/20 08:04 06/12/20 11:54 06/12/20 17:45 06/13/20 07:16 Glucose (Fingerstick) 196 mg/dL (70-99) 213 mg/dL (70-99) 319 mg/dL (70-99) 169 mg/dL (70-99) Test 06/13/20 11:42 06/13/20 17:37 Glucose (Fingerstick) 101 mg/dL (70-99) 173 mg/dL (70-99) Laboratory Tests Test 06/13/20 07:16 06/13/20 11:42 06/13/20 17:37 Glucose (Fingerstick) 169 mg/dL (70-99) 101 mg/dL (70-99) 173 mg/dL (70-99) Medications Active Scripts Medications Dose Route/Sig Max Daily Dose Days Date Category Sertraline Hcl 100 Mg Tablet 100 Mg PO DAILY 06/07/20 Reported Potassium Chloride 8 Meq Capsule.er 1 Cap PO DAILY 06/07/20 Reported Novolog Flexpen (Insulin Aspart) 100 Unit/1 Ml Insuln.pen 1 Unit SQ TIDAC 06/07/20 Reported Glipizide Er (Glipizide) 5 Mg Tab.er.24 1 Tab PO QAM 06/07/20 Reported Darifenacin ER (Darifenacin Hydrobromide) 7.5 Mg Tab.er.24h 1 Tab PO DAILY 06/07/20 Reported Losartan-Hctz 50-12.5 Mg Tab (Losartan/Hydrochlorothiazide) 1 Each Tablet 1 Tab PO DAILY 06/07/20 Reported Furosemide 40 Mg Tablet 1 Tab PO DAILY 06/07/20 Reported Prednisolone Acetate 5 Ml Drops.susp 2 Drop OU QID 06/07/20 Reported Gabapentin 300 Mg Capsule 600 Mg PO DAILY 06/07/20 Reported Novolog (Insulin Aspart) 100 Unit/1 Ml Cartridge 20 Unit SQ TIDAC 03/25/16 Reported Comments CTA chest IMPRESSION: 1. There is no CT evidence of pulmonary embolus. 2. There are patchy groundglass opacities throughout the lungs with interspersed normal lung. Relative sparing of the basilar left lower lobe and the lung apices. There is no confluent consolidation. Considerations include pneumonia including atypical viral pneumonia, nonspecific pneumonitis, or drug toxicity. Impression . IMPRESSION: 1. Acute hypoxic respiratory failure secondary to acute lung injury, acute respiratory distress syndrome due to COVID-19 pneumonia. 2. COVID-[address] chest with diffuse extensive bilateral infiltrates. No evidence of pulmonary embolism. This finding is consistent with COVID-19 pneumonia. 4. Underlying morbid obesity contributing to hypoxia. prob dante 5. No significant tobacco use. Plan . RECOMMENDATIONS: cont bipap setting reviewed cont 02 titration to keep sat 92%, Follow infectious disease recommendations, currently off antibiotics Continue remdesivir for full 5-day course Continued steroids with slow taper will need full 10-day course Follow cultures, no growth to date Continue PPN for nutritional support Full code. DVT/GI prophylaxis Discussed with RN and RT. ERICA FORD MD Jun 14, 2020 06:11
[2020-06-14 08:24] LABS: BASE EXCESS ABG 3 mmol/L (-3-3); HCO3 ABG 29 mmol/L (21-28); PCO2 ABG 48 mmHg (35-46); PO2 ABG 76 mmHg (65-108); SAT O2 ABG 95 % (92-99)
[2020-06-14 08:27] LABS: FIO2 ABG 100
[2020-06-14] MEDS: ZINC SULFATE 220 MG CAPSULE. PO SCH (08:45)
[2020-06-14] MEDS: OXYBUTYNIN CHLORIDE 5 MG TABLET PO SCH ×2 (08:45→21:00)
[2020-06-14] MEDS: ENOXAPARIN 40 MG/0.4 ML SYRINGE. SQ SCH ×2 (08:46→22:19)
[2020-06-14] MEDS: LOSARTAN POTASSIUM 50 MG TABLET. PO SCH (08:46)
[2020-06-14] MEDS: SERTRALINE 50 MG TABLET. PO SCH (08:46)
[2020-06-14] MEDS: ASCORBIC ACID 500 MG TABLET PO SCH (08:46)
[2020-06-14] MEDS: hydroCHLOROthiazide 12.5 MG CAPSULE PO SCH (08:46)
[2020-06-14] MEDS: POTASSIUM CHLORIDE 10 MEQ TABLET.ER. PO SCH (08:46)
[2020-06-14] MEDS: GABAPENTIN 300 MG CAPSULE. PO SCH (08:46)
[2020-06-14] MEDS: FUROSEMIDE 40 MG TABLET. PO SCH (08:46)
[2020-06-14] MEDS: INSULIN LISPRO 300 UNITS/3 ML VIAL. SQ SCH ×6 (08:49→17:36)
[2020-06-14] MEDS: glipiZIDE ER 2.5 MG TAB.ER.24 PO SCH (09:14)
--- NOTE | 2020-06-14 09:14 | PDOC ---
[facility] PROGRESS NOTE Date of Service DOS: DATE: 06/14/20 TIME: 09:12 Chief Complaint Chief Complaint Acute respiratory failure with Hypoxia - related to COVID 19 + acute bronchitis Pneumonia due to 2019 novel coronavirus Acute exacerbation of COPD with bronchitis Elevated d-dimer DM2 (A1c 7.7) Depression COPD HTN Stress incontinence Morbid obesity , BMI 48.6 with also Severe protein calorie malnutrition History of Present Illness History of Present Illness 06/14/2020 Patient was moved to ICU due to worsening respiratory failure. Completed remdesivir. Currently on BiPAP FiO2 100%. Discussed with RN, she is afebrile, not improving. 06/12. still on resp support, very hypoxic, but comfortable no acute change, ID and pulm following, cont current not improving, prognosis worsens with lack of improvement over time 06/11, now on the BIPAP, has declined, ID and PULM following, cont other managemnt 06/10/2020 Patient seen and examined on the [place] [id number] floor She is on BiPAP Started on remdesivir as well per pulmonary Discussed with case management Discussed with RN Chart reviewed She is extremely ill 06/09/2020 Patient seen and examined on the [place]- floor She is on 100% nonrebreather appears quite ill Discussed with case management Discussed with RN Chart reviewed Vitals/I&O Vitals/I&O: Vital Signs Date Time Temp Pulse Resp B/P (MAP) Pulse Ox O2 Delivery O2 Flow Rate FiO2 06/14/20 08:46 56 132/47 06/14/20 07:00 26 92 BiPAP/CPAP 06/14/20 04:00 97.8 97.8 06/13/20 08:00 15.0 I & O 06/13/20 06/13/20 06/14/20 15:00 23:00 07:00 Intake Total 150 ml 297 ml 1111 ml Output Total 850 ml 950 ml 675 ml Balance -700 ml -653 ml 436 ml Physical Exam Physical Exam: GENERAL: Alert, oriented female, in mild distress. VITAL SIGNS: Stable, afebrile. HEENT: NAD. NECK: Supple, no JVP, no lymphadenopathy. LUNGS: Bibasilar crackles on BiPAP HEART: S1, S2 regular. ABDOMEN: Benign. EXTREMITIES: No edema, cyanosis. SKIN: Unremarkable. NEUROLOGIC: Flat affect very sleepy General: Alert, Cooperative, mild distress, moderate distress, Other (On BiPAP) Heart: Other (Tachycardic) Lungs: Crackles Abdomen: Normal bowel sounds, Soft, No tenderness, No hepatosplenomegaly, No masses Extremities: No clubbing, No cyanosis, No edema, Normal pulses, No tenderness/swelling Skin: No rashes, No breakdown, No significant lesion Labs Labs: Laboratory Tests Test 06/13/20 11:42 06/13/20 17:37 06/14/20 05:45 06/14/20 08:18 Glucose (Fingerstick) 101 mg/dL (70-99) 173 mg/dL (70-99) White Blood Count 10.4 x10^3/uL (4.0-11.0) Red Blood Count 4.46 x10^6/uL (3.50-5.40) Hemoglobin 13.1 g/dL (12.0-15.5) Hematocrit 39.4 % (36.0-47.0) Mean Corpuscular Volume 88 fL (79-100) Mean Corpuscular Hemoglobin 29 pg (25-35) Mean Corpuscular Hemoglobin Concent 33 g/dL (31-37) Red Cell Distribution Width 13.8 % (11.5-14.5) Platelet Count 310 x10^3/uL (140-400) Neutrophils (%) (Auto) 92 % (31-73) Lymphocytes (%) (Auto) 4 % (24-48) Monocytes (%) (Auto) 4 % (0-9) Eosinophils (%) (Auto) 0 % (0-3) Basophils (%) (Auto) 0 % (0-3) Neutrophils # (Auto) 9.5 x10^3/uL (1.8-7.7) Lymphocytes # (Auto) 0.5 x10^3/uL (1.0-4.8) Monocytes # (Auto) 0.4 x10^3/uL (0.0-1.1) Eosinophils # (Auto) 0.0 x10^3/uL (0.0-0.7) Basophils # (Auto) 0.0 x10^3/uL (0.0-0.2) O2 Saturation 95 % (92-99) Arterial Blood pH 7.40 (7.35-7.45) Arterial Blood pCO2 at Patient Temp 48 mmHg (35-46) Arterial Blood pO2 at Patient Temp 76 mmHg (65-108) Arterial Blood HCO3 29 mmol/L (21-28) Arterial Blood Base Excess 3 mmol/L (-3-3) FiO2 100 Test 06/14/20 08:44 Glucose (Fingerstick) 206 mg/dL (70-99) Assessment and Plan Assessmemt and Plan Problems Medical Problems: (1) Elevated d-dimer Status: Acute (2) Hypoxia Status: Acute (3) Pneumonia due to 2019 novel coronavirus Status: Acute Comment Review of Relevant I have reviewed the following items angel luis (where applicable) has been applied. Medications: Current Medications Medications (Trade) Dose Ordered Sig/[facility] Route PRN Reason Start Time Stop Time Status Last Admin Dose Admin Lorazepam (Ativan Inj) 0.5 mg 1X ONCE IVP 06/13/20 13:00 06/13/20 13:01 DC 06/13/20 13:19 Justifications for Admission Other Justification PRESLEY POLLARD MD Jun 14, 2020 09:14
[2020-06-14] MEDS: DEXAMETHASONE SOD PHOS 4 MG/ML VIAL IVP SCH (09:15)
[2020-06-14] MEDS: DEXAMETHASONE 0.1% OPHTH SOLUTION 5ML BOTTLE. OU SCH ×4 (09:15→21:00)
[2020-06-14 09:18] LABS: % BANDS 4 % (0-9); % LYMPHS 4 % (24-48); % MONOS 1 % (0-10); % MYELOS 2 % (0-0); % SEGS 89 % (35-66); PLT ESTIMATE ADEQUATE (ADEQUATE)
[2020-06-14 10:58] LABS: ALBUMIN 1.9 g/dL (3.4-5.0); ALBUMIN/GLOBULIN RATIO 0.4 (1.0-1.7); CALCIUM 9.3 mg/dL (8.5-10.1); GFR 55.3; POTASSIUM 4.5 mmol/L (3.5-5.1); TOTAL BILIRUBIN 0.4 mg/dL (0.2-1.0)
--- NOTE | 2020-06-14 11:23 | PDOC ---
Infectious Disease Note Subjective Subjective on bipap ROS ROS no n/v/d/ Vital Sign Vital Signs Vital Signs Date Time Temp Pulse Resp B/P (MAP) Pulse Ox O2 Delivery O2 Flow Rate FiO2 06/14/20 11:00 51 26 150/54 (86) 96 BiPAP/CPAP 06/14/20 08:00 97.8 97.8 06/13/20 08:00 15.0 Physical Exam PHYSICAL EXAM GENERAL: Alert, oriented female, in mild distress. VITAL SIGNS: Stable, afebrile. HEENT: NAD. NECK: Supple, no JVP, no lymphadenopathy. LUNGS: Bibasilar crackles on BiPAP HEART: S1, S2 regular. ABDOMEN: Benign. EXTREMITIES: No edema, cyanosis. SKIN: Unremarkable. NEUROLOGIC: Flat affect very sleepy Labs Lab Laboratory Tests Test 06/13/20 11:42 06/13/20 17:37 06/14/20 05:45 06/14/20 08:18 Glucose (Fingerstick) 101 mg/dL (70-99) 173 mg/dL (70-99) White Blood Count 10.4 x10^3/uL (4.0-11.0) Red Blood Count 4.46 x10^6/uL (3.50-5.40) Hemoglobin 13.1 g/dL (12.0-15.5) Hematocrit 39.4 % (36.0-47.0) Mean Corpuscular Volume 88 fL (79-100) Mean Corpuscular Hemoglobin 29 pg (25-35) Mean Corpuscular Hemoglobin Concent 33 g/dL (31-37) Red Cell Distribution Width 13.8 % (11.5-14.5) Platelet Count 310 x10^3/uL (140-400) Neutrophils (%) (Auto) 92 % (31-73) Lymphocytes (%) (Auto) 4 % (24-48) Monocytes (%) (Auto) 4 % (0-9) Eosinophils (%) (Auto) 0 % (0-3) Basophils (%) (Auto) 0 % (0-3) Neutrophils # (Auto) 9.5 x10^3/uL (1.8-7.7) Lymphocytes # (Auto) 0.5 x10^3/uL (1.0-4.8) Monocytes # (Auto) 0.4 x10^3/uL (0.0-1.1) Eosinophils # (Auto) 0.0 x10^3/uL (0.0-0.7) Basophils # (Auto) 0.0 x10^3/uL (0.0-0.2) Segmented Neutrophils % 89 % (35-66) Band Neutrophils % 4 % (0-9) Lymphocytes % 4 % (24-48) Monocytes % 1 % (0-10) Myelocytes % 2 % (0-0) Platelet Estimate Adequate (ADEQUATE) O2 Saturation 95 % (92-99) Arterial Blood pH 7.40 (7.35-7.45) Arterial Blood pCO2 at Patient Temp 48 mmHg (35-46) Arterial Blood pO2 at Patient Temp 76 mmHg (65-108) Arterial Blood HCO3 29 mmol/L (21-28) Arterial Blood Base Excess 3 mmol/L (-3-3) FiO2 100 Test 06/14/20 08:44 06/14/20 10:30 Glucose (Fingerstick) 206 mg/dL (70-99) Sodium Level 136 mmol/L (136-145) Potassium Level 4.5 mmol/L (3.5-5.1) Chloride Level 100 mmol/L (98-107) Carbon Dioxide Level 30 mmol/L (21-32) Anion Gap 6 (6-14) Blood Urea Nitrogen 61 mg/dL (7-20) Creatinine 1.0 mg/dL (0.6-1.0) Estimated GFR (Cockcroft-Gault) 55.3 BUN/Creatinine Ratio 61 (6-20) Glucose Level 221 mg/dL (70-99) Calcium Level 9.3 mg/dL (8.5-10.1) Total Bilirubin 0.4 mg/dL (0.2-1.0) Aspartate Amino Transf (AST/SGOT) 38 U/L (15-37) Alanine Aminotransferase (ALT/SGPT) 13 U/L (14-59) Alkaline Phosphatase 78 U/L (46-116) Total Protein 7.0 g/dL (6.4-8.2) Albumin 1.9 g/dL (3.4-5.0) Albumin/Globulin Ratio 0.4 (1.0-1.7) Micro Microbiology 06/08/20 Blood Culture - Preliminary, Resulted NO GROWTH AFTER 1 DAY Objective Assessment IMPRESSION: 1. COVID-19 positive. 2. COVID-19 pneumonia. 3. Respiratory failure. 4. Obesity. 5. Chronic obstructive pulmonary disease. 6. Hypertension. 7. Diabetes. Plan Plan of Care cont current treatment supportive care bipap Overall prognosis poor GAVIN ELIAS MD Jun 14, 2020 11:23
[2020-06-14] MEDS: NYSTATIN TOPICAL POWDER 15GM BOTTLE. TP SCH (22:18)
[2020-06-14] MEDS: INSULIN GLARGINE SYRINGE. SQ SCH (22:18)
[2020-06-15] VITALS (24 sets, daily range): BP systolic 83–136; BP diastolic 38–89
[2020-06-15] MEDS: AMINO AC 3%/ELECTROLYTE/GLYCER 1,000 ML IV SCH ×2 (05:31→17:52)
[2020-06-15 06:43] LABS: BASO % 0 % (0-3); EOS % 0 % (0-3); HEMATOCRIT 40.5 % (36.0-47.0); HEMOGLOBIN 13.6 g/dL (12.0-15.5); LYMPH # 0.6 x10^3/uL (1.0-4.8); LYMPH % 5 % (24-48); MEAN CORPUSCULAR HEMOGLOBIN 30 pg (25-35); MEAN CORPUSCULAR HGB CONC 34 g/dL (31-37); MEAN CORPUSCULAR VOLUME 88 fL (79-100); MONO # 0.5 x10^3/uL (0.0-1.1); MONO % 4 % (0-9); NEUT # 11.2 x10^3/uL (1.8-7.7); NEUT % 91 % (31-73); PLATELET COUNT 338 x10^3/uL (140-400); RED BLOOD COUNT 4.58 x10^6/uL (3.50-5.40); WHITE BLOOD COUNT 12.4 x10^3/uL (4.0-11.0)
--- NOTE | 2020-06-15 06:44 | NUR ---
When pts BG assessed around 0400, pts BG noted to be 66. Pt able to drink 4 oz apple juice. When BG reassessed 15 later, it was 93. Will pass on and continue to monitor. Pt within sight of care team.
[2020-06-15 07:02] LABS: CALCIUM 9.5 mg/dL (8.5-10.1); GFR 55.3; POTASSIUM 4.1 mmol/L (3.5-5.1)
--- NOTE | 2020-06-15 07:36 | PDOC ---
Infectious Disease Note Subjective Subjective on bipap ROS ROS No nausea vomiting diarrhea or fever Vital Sign Vital Signs Vital Signs Date Time Temp Pulse Resp B/P (MAP) Pulse Ox O2 Delivery O2 Flow Rate FiO2 06/15/20 07:00 59 32 122/58 (79) 97 BiPAP/CPAP 06/15/20 04:00 98.2 98.2 Physical Exam PHYSICAL EXAM GENERAL: Alert, oriented female, in mild distress. VITAL SIGNS: Stable, afebrile. HEENT: NAD. NECK: Supple, no JVP, no lymphadenopathy. LUNGS: Bibasilar crackles on BiPAP HEART: S1, S2 regular. ABDOMEN: Benign. EXTREMITIES: No edema, cyanosis. SKIN: Unremarkable. NEUROLOGIC: Flat affect very sleepy Labs Lab Laboratory Tests Test 06/14/20 08:18 06/14/20 08:44 06/14/20 10:30 06/14/20 13:00 O2 Saturation 95 % (92-99) Arterial Blood pH 7.40 (7.35-7.45) Arterial Blood pCO2 at Patient Temp 48 mmHg (35-46) Arterial Blood pO2 at Patient Temp 76 mmHg (65-108) Arterial Blood HCO3 29 mmol/L (21-28) Arterial Blood Base Excess 3 mmol/L (-3-3) FiO2 100 Glucose (Fingerstick) 206 mg/dL (70-99) 221 mg/dL (70-99) Sodium Level 136 mmol/L (136-145) Potassium Level 4.5 mmol/L (3.5-5.1) Chloride Level 100 mmol/L (98-107) Carbon Dioxide Level 30 mmol/L (21-32) Anion Gap 6 (6-14) Blood Urea Nitrogen 61 mg/dL (7-20) Creatinine 1.0 mg/dL (0.6-1.0) Estimated GFR (Cockcroft-Gault) 55.3 BUN/Creatinine Ratio 61 (6-20) Glucose Level 221 mg/dL (70-99) Calcium Level 9.3 mg/dL (8.5-10.1) Total Bilirubin 0.4 mg/dL (0.2-1.0) Aspartate Amino Transf (AST/SGOT) 38 U/L (15-37) Alanine Aminotransferase (ALT/SGPT) 13 U/L (14-59) Alkaline Phosphatase 78 U/L (46-116) Total Protein 7.0 g/dL (6.4-8.2) Albumin 1.9 g/dL (3.4-5.0) Albumin/Globulin Ratio 0.4 (1.0-1.7) Test 06/14/20 17:34 06/15/20 05:50 06/15/20 06:05 Glucose (Fingerstick) 180 mg/dL (70-99) D-Dimer (Sarah) 2.45 ug/mlFEU (0.00-0.50) White Blood Count 12.4 x10^3/uL (4.0-11.0) Red Blood Count 4.58 x10^6/uL (3.50-5.40) Hemoglobin 13.6 g/dL (12.0-15.5) Hematocrit 40.5 % (36.0-47.0) Mean Corpuscular Volume 88 fL (79-100) Mean Corpuscular Hemoglobin 30 pg (25-35) Mean Corpuscular Hemoglobin Concent 34 g/dL (31-37) Red Cell Distribution Width 14.0 % (11.5-14.5) Platelet Count 338 x10^3/uL (140-400) Neutrophils (%) (Auto) 91 % (31-73) Lymphocytes (%) (Auto) 5 % (24-48) Monocytes (%) (Auto) 4 % (0-9) Eosinophils (%) (Auto) 0 % (0-3) Basophils (%) (Auto) 0 % (0-3) Neutrophils # (Auto) 11.2 x10^3/uL (1.8-7.7) Lymphocytes # (Auto) 0.6 x10^3/uL (1.0-4.8) Monocytes # (Auto) 0.5 x10^3/uL (0.0-1.1) Eosinophils # (Auto) 0.0 x10^3/uL (0.0-0.7) Basophils # (Auto) 0.0 x10^3/uL (0.0-0.2) Sodium Level 140 mmol/L (136-145) Potassium Level 4.1 mmol/L (3.5-5.1) Chloride Level 102 mmol/L (98-107) Carbon Dioxide Level 31 mmol/L (21-32) Anion Gap 7 (6-14) Blood Urea Nitrogen 65 mg/dL (7-20) Creatinine 1.0 mg/dL (0.6-1.0) Estimated GFR (Cockcroft-Gault) 55.3 Glucose Level 90 mg/dL (70-99) Calcium Level 9.5 mg/dL (8.5-10.1) DP-Gld-N-Type Natriuretic Peptide 244 pg/mL (0-124) Micro Microbiology 06/08/20 Blood Culture - Preliminary, Resulted NO GROWTH AFTER 1 DAY Objective Assessment IMPRESSION: 1. COVID-19 positive. 2. COVID-19 pneumonia. 3. Respiratory failure. 4. Obesity. 5. Chronic obstructive pulmonary disease. 6. Hypertension. 7. Diabetes. Plan Plan of Care cont current treatment supportive care bipap Overall prognosis poor GAVIN ELIAS MD Jun 15, 2020 07:36
[2020-06-15] MEDS: INSULIN LISPRO 300 UNITS/3 ML VIAL. SQ SCH ×6 (08:00→17:59)
[2020-06-15] MEDS: POTASSIUM CHLORIDE 10 MEQ TABLET.ER. PO SCH (08:20)
[2020-06-15] MEDS: ASCORBIC ACID 500 MG TABLET PO SCH (08:21)
[2020-06-15] MEDS: GABAPENTIN 300 MG CAPSULE. PO SCH (08:21)
[2020-06-15] MEDS: glipiZIDE ER 2.5 MG TAB.ER.24 PO SCH ×2 (08:21→08:50)
[2020-06-15] MEDS: SERTRALINE 50 MG TABLET. PO SCH (08:21)
[2020-06-15] MEDS: FUROSEMIDE 40 MG TABLET. PO SCH (08:21)
[2020-06-15] MEDS: hydroCHLOROthiazide 12.5 MG CAPSULE PO SCH (08:21)
[2020-06-15] MEDS: DEXAMETHASONE SOD PHOS 4 MG/ML VIAL IVP SCH (08:22)
[2020-06-15] MEDS: OXYBUTYNIN CHLORIDE 5 MG TABLET PO SCH ×2 (08:22→21:00)
[2020-06-15] MEDS: ZINC SULFATE 220 MG CAPSULE. PO SCH (08:22)
[2020-06-15] MEDS: LOSARTAN POTASSIUM 50 MG TABLET. PO SCH (08:23)
[2020-06-15] MEDS: NYSTATIN TOPICAL POWDER 15GM BOTTLE. TP SCH ×2 (08:23→21:00)
[2020-06-15] MEDS: ENOXAPARIN 40 MG/0.4 ML SYRINGE. SQ SCH ×2 (08:23→21:46)
[2020-06-15 08:24] LABS: MAGNESIUM 2.2 mg/dL (1.8-2.4)
[2020-06-15] MEDS: DEXAMETHASONE 0.1% OPHTH SOLUTION 5ML BOTTLE. OU SCH ×4 (08:24→21:44)
[2020-06-15 08:28] LABS: BASE EXCESS ABG 2 mmol/L (-3-3); HCO3 ABG 27 mmol/L (21-28); PCO2 ABG 44 mmHg (35-46); PO2 ABG 65 mmHg (65-108); SAT O2 ABG 92 % (92-99)
[2020-06-15 08:31] LABS: FIO2 ABG 80
--- NOTE | 2020-06-15 08:37 | PDOC ---
PULMONARY PROGRESS NOTE Diagnosis PROBLEM LIST Problems Medical Problems: (1) Elevated d-dimer Status: Acute (2) Hypoxia Status: Acute (3) Pneumonia due to 2019 novel coronavirus Status: Acute Objective Vital Signs Date Time Temp Pulse Resp B/P (MAP) Pulse Ox O2 Delivery O2 Flow Rate FiO2 06/15/20 08:23 58 117/59 06/15/20 07:00 32 97 BiPAP/CPAP 06/15/20 04:00 98.2 98.2 Intake and Output 06/15/20 06:59 Intake Total 1932 ml Output Total 2485 ml Balance -553 ml Intake Oral 420 ml IV Total 1512 ml Output Urine Total 2485 ml VITALS/I&O Vital Sign - Last 24 Hours 06/14/20 06/14/20 06/14/20 06/14/20 08:46 09:00 10:00 11:00 Pulse 56 48 50 51 Resp 25 26 26 B/P (MAP) 132/47 131/49 (76) 140/52 (81) 150/54 (86) Pulse Ox 91 95 96 O2 Delivery BiPAP/CPAP BiPAP/CPAP BiPAP/CPAP 06/14/20 06/14/20 06/14/20 06/14/20 12:00 12:00 12:00 13:00 Temp 97.8 97.8 Pulse 58 58 Resp 21 27 B/P (MAP) 149/56 (87) 148/68 (94) Pulse Ox 99 96 96 O2 Delivery BiPAP/CPAP BiPAP/CPAP Bi-pap BiPAP/CPAP 06/14/20 06/14/20 06/14/20 06/14/20 14:00 15:00 15:30 16:00 Pulse 58 56 Resp 27 20 B/P (MAP) 149/66 (93) 147/62 (90) Pulse Ox 97 95 93 O2 Delivery BiPAP/CPAP BiPAP/CPAP BiPAP/CPAP Bi-pap 06/14/20 06/14/20 06/14/20 06/14/20 16:00 17:00 18:00 19:00 Temp 98.6 98.6 Pulse 57 53 56 52 Resp 30 23 24 24 B/P (MAP) 119/48 (71) 117/44 (68) 131/50 (77) 114/43 (66) Pulse Ox 89 91 94 93 O2 Delivery BiPAP/CPAP BiPAP/CPAP BiPAP/CPAP BiPAP/CPAP 06/14/20 06/14/20 06/14/20 06/14/20 20:00 20:00 20:44 21:00 Temp 98.2 98.2 Pulse 51 52 Resp 22 24 B/P (MAP) 119/44 (69) 118/58 (78) Pulse Ox 94 91 92 O2 Delivery Bi-pap BiPAP/CPAP BiPAP/CPAP BiPAP/CPAP 06/14/20 06/14/20 06/15/20 06/15/20 22:00 23:00 00:00 00:00 Pulse 55 55 52 Resp 18 24 21 B/P (MAP) 133/45 (74) 135/59 (84) 124/65 (84) Pulse Ox 94 93 91 O2 Delivery BiPAP/CPAP BiPAP/CPAP BiPAP/CPAP Bi-pap 06/15/20 06/15/20 06/15/20 06/15/20 00:00 00:57 01:00 02:00 Temp 98.4 98.4 Pulse 56 54 Resp 22 22 B/P (MAP) 136/65 (88) 135/48 (77) Pulse Ox 91 92 92 O2 Delivery BiPAP/CPAP BiPAP/CPAP BiPAP/CPAP 06/15/20 06/15/20 06/15/20 06/15/20 03:00 04:00 04:00 05:00 Temp 98.2 98.2 Pulse 57 50 58 Resp 28 25 33 B/P (MAP) 127/52 (77) 123/50 (74) 117/52 (73) Pulse Ox 95 94 98 O2 Delivery BiPAP/CPAP BiPAP/CPAP Bi-pap BiPAP/CPAP 06/15/20 06/15/20 06/15/20 06/15/20 05:18 06:00 07:00 08:23 Pulse 64 59 58 Resp 27 32 B/P (MAP) 114/51 (72) 122/58 (79) 117/59 Pulse Ox 98 95 97 O2 Delivery BiPAP/CPAP BiPAP/CPAP BiPAP/CPAP Intake and Output 06/14/20 06/14/20 06/15/20 14:59 22:59 06:59 Intake Total 150 ml 1105 ml 677 ml Output Total 800 ml 1100 ml 585 ml Balance -650 ml 5 ml 92 ml Review of Relevant I have reviewed the following items angel luis (where applicable) has been applied. Labs Laboratory Tests Test 06/13/20 11:42 06/13/20 17:37 06/14/20 05:45 06/14/20 08:18 Glucose (Fingerstick) 101 mg/dL (70-99) 173 mg/dL (70-99) White Blood Count 10.4 x10^3/uL (4.0-11.0) Red Blood Count 4.46 x10^6/uL (3.50-5.40) Hemoglobin 13.1 g/dL (12.0-15.5) Hematocrit 39.4 % (36.0-47.0) Mean Corpuscular Volume 88 fL (79-100) Mean Corpuscular Hemoglobin 29 pg (25-35) Mean Corpuscular Hemoglobin Concent 33 g/dL (31-37) Red Cell Distribution Width 13.8 % (11.5-14.5) Platelet Count 310 x10^3/uL (140-400) Neutrophils (%) (Auto) 92 % (31-73) Lymphocytes (%) (Auto) 4 % (24-48) Monocytes (%) (Auto) 4 % (0-9) Eosinophils (%) (Auto) 0 % (0-3) Basophils (%) (Auto) 0 % (0-3) Neutrophils # (Auto) 9.5 x10^3/uL (1.8-7.7) Lymphocytes # (Auto) 0.5 x10^3/uL (1.0-4.8) Monocytes # (Auto) 0.4 x10^3/uL (0.0-1.1) Eosinophils # (Auto) 0.0 x10^3/uL (0.0-0.7) Basophils # (Auto) 0.0 x10^3/uL (0.0-0.2) Segmented Neutrophils % 89 % (35-66) Band Neutrophils % 4 % (0-9) Lymphocytes % 4 % (24-48) Monocytes % 1 % (0-10) Myelocytes % 2 % (0-0) Platelet Estimate Adequate (ADEQUATE) O2 Saturation 95 % (92-99) Arterial Blood pH 7.40 (7.35-7.45) Arterial Blood pCO2 at Patient Temp 48 mmHg (35-46) Arterial Blood pO2 at Patient Temp 76 mmHg (65-108) Arterial Blood HCO3 29 mmol/L (21-28) Arterial Blood Base Excess 3 mmol/L (-3-3) FiO2 100 Test 06/14/20 08:44 06/14/20 10:30 06/14/20 13:00 06/14/20 17:34 Glucose (Fingerstick) 206 mg/dL (70-99) 221 mg/dL (70-99) 180 mg/dL (70-99) Sodium Level 136 mmol/L (136-145) Potassium Level 4.5 mmol/L (3.5-5.1) Chloride Level 100 mmol/L (98-107) Carbon Dioxide Level 30 mmol/L (21-32) Anion Gap 6 (6-14) Blood Urea Nitrogen 61 mg/dL (7-20) Creatinine 1.0 mg/dL (0.6-1.0) Estimated GFR (Cockcroft-Gault) 55.3 BUN/Creatinine Ratio 61 (6-20) Glucose Level 221 mg/dL (70-99) Calcium Level 9.3 mg/dL (8.5-10.1) Total Bilirubin 0.4 mg/dL (0.2-1.0) Aspartate Amino Transf (AST/SGOT) 38 U/L (15-37) Alanine Aminotransferase (ALT/SGPT) 13 U/L (14-59) Alkaline Phosphatase 78 U/L (46-116) Total Protein 7.0 g/dL (6.4-8.2) Albumin 1.9 g/dL (3.4-5.0) Albumin/Globulin Ratio 0.4 (1.0-1.7) Test 06/15/20 05:50 06/15/20 06:05 06/15/20 07:55 D-Dimer (Sarah) 2.45 ug/mlFEU (0.00-0.50) White Blood Count 12.4 x10^3/uL (4.0-11.0) Red Blood Count 4.58 x10^6/uL (3.50-5.40) Hemoglobin 13.6 g/dL (12.0-15.5) Hematocrit 40.5 % (36.0-47.0) Mean Corpuscular Volume 88 fL (79-100) Mean Corpuscular Hemoglobin 30 pg (25-35) Mean Corpuscular Hemoglobin Concent 34 g/dL (31-37) Red Cell Distribution Width 14.0 % (11.5-14.5) Platelet Count 338 x10^3/uL (140-400) Neutrophils (%) (Auto) 91 % (31-73) Lymphocytes (%) (Auto) 5 % (24-48) Monocytes (%) (Auto) 4 % (0-9) Eosinophils (%) (Auto) 0 % (0-3) Basophils (%) (Auto) 0 % (0-3) Neutrophils # (Auto) 11.2 x10^3/uL (1.8-7.7) Lymphocytes # (Auto) 0.6 x10^3/uL (1.0-4.8) Monocytes # (Auto) 0.5 x10^3/uL (0.0-1.1) Eosinophils # (Auto) 0.0 x10^3/uL (0.0-0.7) Basophils # (Auto) 0.0 x10^3/uL (0.0-0.2) Sodium Level 140 mmol/L (136-145) Potassium Level 4.1 mmol/L (3.5-5.1) Chloride Level 102 mmol/L (98-107) Carbon Dioxide Level 31 mmol/L (21-32) Anion Gap 7 (6-14) Blood Urea Nitrogen 65 mg/dL (7-20) Creatinine 1.0 mg/dL (0.6-1.0) Estimated GFR (Cockcroft-Gault) 55.3 Glucose Level 90 mg/dL (70-99) Calcium Level 9.5 mg/dL (8.5-10.1) Magnesium Level 2.2 mg/dL (1.8-2.4) Ferritin 558 ng/mL (8-252) Lactate Dehydrogenase 507 U/L (81-234) Creatine Kinase 203 U/L (26-192) AD-Fxq-N-Type Natriuretic Peptide 244 pg/mL (0-124) O2 Saturation 92 % (92-99) Arterial Blood pH 7.41 (7.35-7.45) Arterial Blood pCO2 at Patient Temp 44 mmHg (35-46) Arterial Blood pO2 at Patient Temp 65 mmHg (65-108) Arterial Blood HCO3 27 mmol/L (21-28) Arterial Blood Base Excess 2 mmol/L (-3-3) FiO2 80 Laboratory Tests Test 06/14/20 08:44 06/14/20 10:30 06/14/20 13:00 06/14/20 17:34 Glucose (Fingerstick) 206 mg/dL (70-99) 221 mg/dL (70-99) 180 mg/dL (70-99) Sodium Level 136 mmol/L (136-145) Potassium Level 4.5 mmol/L (3.5-5.1) Chloride Level 100 mmol/L (98-107) Carbon Dioxide Level 30 mmol/L (21-32) Anion Gap 6 (6-14) Blood Urea Nitrogen 61 mg/dL (7-20) Creatinine 1.0 mg/dL (0.6-1.0) Estimated GFR (Cockcroft-Gault) 55.3 BUN/Creatinine Ratio 61 (6-20) Glucose Level 221 mg/dL (70-99) Calcium Level 9.3 mg/dL (8.5-10.1) Total Bilirubin 0.4 mg/dL (0.2-1.0) Aspartate Amino Transf (AST/SGOT) 38 U/L (15-37) Alanine Aminotransferase (ALT/SGPT) 13 U/L (14-59) Alkaline Phosphatase 78 U/L (46-116) Total Protein 7.0 g/dL (6.4-8.2) Albumin 1.9 g/dL (3.4-5.0) Albumin/Globulin Ratio 0.4 (1.0-1.7) Test 06/15/20 05:50 06/15/20 06:05 06/15/20 07:55 D-Dimer (Sarah) 2.45 ug/mlFEU (0.00-0.50) White Blood Count 12.4 x10^3/uL (4.0-11.0) Red Blood Count 4.58 x10^6/uL (3.50-5.40) Hemoglobin 13.6 g/dL (12.0-15.5) Hematocrit 40.5 % (36.0-47.0) Mean Corpuscular Volume 88 fL (79-100) Mean Corpuscular Hemoglobin 30 pg (25-35) Mean Corpuscular Hemoglobin Concent 34 g/dL (31-37) Red Cell Distribution Width 14.0 % (11.5-14.5) Platelet Count 338 x10^3/uL (140-400) Neutrophils (%) (Auto) 91 % (31-73) Lymphocytes (%) (Auto) 5 % (24-48) Monocytes (%) (Auto) 4 % (0-9) Eosinophils (%) (Auto) 0 % (0-3) Basophils (%) (Auto) 0 % (0-3) Neutrophils # (Auto) 11.2 x10^3/uL (1.8-7.7) Lymphocytes # (Auto) 0.6 x10^3/uL (1.0-4.8) Monocytes # (Auto) 0.5 x10^3/uL (0.0-1.1) Eosinophils # (Auto) 0.0 x10^3/uL (0.0-0.7) Basophils # (Auto) 0.0 x10^3/uL (0.0-0.2) Sodium Level 140 mmol/L (136-145) Potassium Level 4.1 mmol/L (3.5-5.1) Chloride Level 102 mmol/L (98-107) Carbon Dioxide Level 31 mmol/L (21-32) Anion Gap 7 (6-14) Blood Urea Nitrogen 65 mg/dL (7-20) Creatinine 1.0 mg/dL (0.6-1.0) Estimated GFR (Cockcroft-Gault) 55.3 Glucose Level 90 mg/dL (70-99) Calcium Level 9.5 mg/dL (8.5-10.1) Magnesium Level 2.2 mg/dL (1.8-2.4) Ferritin 558 ng/mL (8-252) Lactate Dehydrogenase 507 U/L (81-234) Creatine Kinase 203 U/L (26-192) ON-Hyb-G-Type Natriuretic Peptide 244 pg/mL (0-124) O2 Saturation 92 % (92-99) Arterial Blood pH 7.41 (7.35-7.45) Arterial Blood pCO2 at Patient Temp 44 mmHg (35-46) Arterial Blood pO2 at Patient Temp 65 mmHg (65-108) Arterial Blood HCO3 27 mmol/L (21-28) Arterial Blood Base Excess 2 mmol/L (-3-3) FiO2 80 Microbiology 06/08/20 Blood Culture - Final, Complete NO GROWTH AFTER 5 DAYS Medications Current Medications Sodium Chloride 500 ml @ 500 mls/hr 1X ONCE IV Last administered on 06/07/20at 16:29; Start 06/07/20 at 16:30; Stop 06/07/20 at 17:29; Status DC Dexamethasone Sodium Phosphate (Decadron) 10 mg 1X ONCE IV Last administered on 06/07/20at 16:30; Start 06/07/20 at 16:30; Stop 06/07/20 at 16:31; Status DC Ceftriaxone Sodium (Rocephin) 1 gm 1X ONCE IVP Last administered on 06/07/20at 18:29; Start 06/07/20 at 18:15; Stop 06/07/20 at 18:16; Status DC Azithromycin 250 ml @ 250 mls/hr 1X ONCE IV Last administered on 06/07/20at 18:30; Start 06/07/20 at 18:30; Stop 06/07/20 at 19:29; Status DC Sodium Chloride 500 ml @ 500 mls/hr 1X ONCE IV Last administered on 06/07/20at 20:13; Start 06/07/20 at 18:45; Stop 06/07/20 at 19:44; Status DC Iohexol (Omnipaque 350 Mg/ml) 80 ml 1X ONCE IV Last administered on 06/07/20at 19:44; Start 06/07/20 at 19:15; Stop 06/07/20 at 19:16; Status DC Info (CONTRAST GIVEN -- Rx MONITORING) 1 each PRN DAILY PRN MC SEE COMMENTS; Start 06/07/20 at 19:15; Stop 06/09/20 at 19:14; Status DC Ondansetron HCl (Zofran) 4 mg PRN Q8HRS PRN IV NAUSEA/VOMITING; Start 06/07/20 at 19:30; Stop 06/08/20 at 13:24; Status DC Acetaminophen (Tylenol) 650 mg PRN Q4HRS PRN PO FEVER > 100.3'F Last administered on 06/07/20at 23:41; Start 06/07/20 at 19:30; Stop 06/08/20 at 13:24; Status DC Insulin Human Lispro (HumaLOG) 0-5 UNITS TIDWMEALS SQ Last administered on 06/14/20at 17:35; Start 06/08/20 at 08:00 Dextrose (Dextrose 50%-Water Syringe) 12.5 gm PRN Q15MIN PRN IV SEE COMMENTS; Start 06/07/20 at 19:30 Furosemide (Lasix) 40 mg DAILY PO Last administered on 06/15/20 08:21; Start 06/08/20 at 09:00 Oxybutynin Chloride (Ditropan) 5 mg BID PO Last administered on 06/15/20 08:22; Start 06/08/20 at 09:00 Glipizide (Glucotrol Er) 5 mg DAILY08 PO Last administered on 06/15/20 08:21; Start 06/08/20 at 08:00 Non-Formulary Medication (Insulin Aspart (Novolog Flexpen)) 1 unit TIDAC SQ ; Start 06/08/20 at 07:30; Status UNV Insulin Human Lispro (HumaLOG) 20 units TIDWMEALS SQ Last administered on 06/02 09/19at 17:36; Start 06/08/20 at 08:00 Losartan Potassium (Cozaar) 50 mg DAILY PO Last administered on 06/15/20 08:23; Start 06/08/20 at 00:00 Potassium Chloride (Klor-Con) 10 meq DAILYWBKFT PO Last administered on 06/15/20 08:20; Start 06/08/20 at 08:00 Dexamethasone Sodium Phosphate (Maxidex) 2 drop QID OU Last administered on 06/15/20 08:24; Start 06/08/20 at 09:00 Sertraline HCl (Zoloft) 100 mg DAILY PO Last administered on 06/15/20 08:21; Start 06/08/20 at 09:00 Gabapentin (Neurontin) 600 mg DAILY PO Last administered on 06/15/20 08:21; Start 06/08/20 at 09:00 Hydrochlorothiazide (Microzide) 12.5 mg DAILY PO Last administered on 06/15/20 08:21; Start 06/08/20 at 09:00 Enalaprilat (Vasotec Inj) 1.25 mg Q6HRS IVP Last administered on 06/08/20at 04:40; Start 06/08/20 at 06:00; Stop 06/08/20 at 04:59; Status DC Enalaprilat (Vasotec Inj) 1.25 mg PRN Q6HRS PRN IVP HTN Last administered on 06/13/20 22:22; Start 06/08/20 at 11:00 Ondansetron HCl (Zofran) 4 mg PRN Q4HRS PRN IV NAUSEA/VOMITING; Start 06/08/20 at 13:30 Acetaminophen (Tylenol) 650 mg PRN Q6HRS PRN PO FEVER > 100.3'F Last administered on 06/09/20 08:19; Start 06/08/20 at 13:30 Dexamethasone Sodium Phosphate (Decadron) 6 mg DAILY IVP Last administered on 06/15/20 08:22; Start 06/08/20 at 13:45 Zinc Sulfate (Orazinc) 220 mg DAILY PO Last administered on 06/15/20 08:22; Start 06/08/20 at 14:00 Insulin Glargine (Lantus Syringe) 25 unit QHS SQ Last administered on 06/14/20at 22:18; Start 06/08/20 at 21:00 Remdesivir 200 mg/ Sodium Chloride 210 ml @ 210 mls/hr 1X ONCE IV Last administered on 06/09/20 13:47; Start 06/09/20 at 13:00; Stop 06/09/20 at 13:59; Status DC Remdesivir 100 mg/ Sodium Chloride 230 ml @ 460 mls/hr Q24H IV Last administered on 06/13/20 13:19; Start 06/10/20 at 13:00; Stop 06/13/20 at 13:29; Status DC Enoxaparin Sodium (Lovenox 40mg Syringe) 40 mg Q12HR SQ Last administered on 06/15/20 08:23; Start 06/09/20 at 21:00 Guaifenesin (Mucinex) 600 mg BID PO Last administered on 06/15/20 08:21; Start 06/09/20 at 21:00 Ascorbic Acid (Vitamin C) 500 mg DAILY PO Last administered on 06/15/20 08:21; Start 06/11/20 at 10:00 Amino Acids/ Glycerin/ Electrolytes 1,000 ml @ 80 mls/hr [id number] IV Last administered on 06/15/20at 05:31; Start 06/11/20 at 11:00 Lorazepam (Ativan Inj) 0.5 mg 1X ONCE IVP Last administered on 06/13/20at 13:19; Start 06/13/20 at 13:00; Stop 06/13/20 at 13:01; Status DC Nystatin (Nystop) 1 vianca BID TP Last administered on 06/15/20at 08:23; Start 06/14/20 at 21:00 Active Scripts Active Reported Sertraline Hcl 100 Mg Tablet 100 Mg PO DAILY Potassium Chloride 8 Meq Capsule.er 1 Cap PO DAILY Novolog Flexpen (Insulin Aspart) 100 Unit/1 Ml Insuln.pen 1 Unit SQ TIDAC Glipizide Er (Glipizide) 5 Mg Tab.er.24 1 Tab PO QAM Darifenacin ER (Darifenacin Hydrobromide) 7.5 Mg Tab.er.24h 1 Tab PO DAILY Losartan-Hctz 50-12.5 Mg Tab (Losartan/Hydrochlorothiazide) 1 Each Tablet 1 Tab PO DAILY Furosemide 40 Mg Tablet 1 Tab PO DAILY Prednisolone Acetate 5 Ml Drops.susp 2 Drop OU QID Gabapentin 300 Mg Capsule 600 Mg PO DAILY Novolog (Insulin Aspart) 100 Unit/1 Ml Cartridge 20 Unit SQ TIDAC Justicifation of Admission Dx: Justifications for Admission: Justification of Admission Dx: Yes (resp failure) AVA JOHNSON MD Jun 15, 2020 08:37
--- NOTE | 2020-06-15 11:47 | PDOC ---
PULMONARY PROGRESS NOTES DATE: 06/15/20 TIME: 11:45 Subjective Patient remains on BiPAP, currently 80% Afebrile overnight No overnight concerns from nursing Vitals Vital Signs Date Time Temp Pulse Resp B/P (MAP) Pulse Ox O2 Delivery O2 Flow Rate FiO2 06/15/20 11:39 96 BiPAP/CPAP 06/15/20 11:00 59 19 97/41 (59) 06/15/20 08:00 98.5 98.5 Comments Patient seen during , visual exam performed Obesity On BiPAP Regular rate and rhythm no accessory muscle use Bilateral lower extremity edema trace Lungs: Crackles Labs Laboratory Tests Test 06/13/20 17:37 06/14/20 05:45 06/14/20 08:18 06/14/20 08:44 Glucose (Fingerstick) 173 mg/dL (70-99) 206 mg/dL (70-99) White Blood Count 10.4 x10^3/uL (4.0-11.0) Red Blood Count 4.46 x10^6/uL (3.50-5.40) Hemoglobin 13.1 g/dL (12.0-15.5) Hematocrit 39.4 % (36.0-47.0) Mean Corpuscular Volume 88 fL (79-100) Mean Corpuscular Hemoglobin 29 pg (25-35) Mean Corpuscular Hemoglobin Concent 33 g/dL (31-37) Red Cell Distribution Width 13.8 % (11.5-14.5) Platelet Count 310 x10^3/uL (140-400) Neutrophils (%) (Auto) 92 % (31-73) Lymphocytes (%) (Auto) 4 % (24-48) Monocytes (%) (Auto) 4 % (0-9) Eosinophils (%) (Auto) 0 % (0-3) Basophils (%) (Auto) 0 % (0-3) Neutrophils # (Auto) 9.5 x10^3/uL (1.8-7.7) Lymphocytes # (Auto) 0.5 x10^3/uL (1.0-4.8) Monocytes # (Auto) 0.4 x10^3/uL (0.0-1.1) Eosinophils # (Auto) 0.0 x10^3/uL (0.0-0.7) Basophils # (Auto) 0.0 x10^3/uL (0.0-0.2) Segmented Neutrophils % 89 % (35-66) Band Neutrophils % 4 % (0-9) Lymphocytes % 4 % (24-48) Monocytes % 1 % (0-10) Myelocytes % 2 % (0-0) Platelet Estimate Adequate (ADEQUATE) O2 Saturation 95 % (92-99) Arterial Blood pH 7.40 (7.35-7.45) Arterial Blood pCO2 at Patient Temp 48 mmHg (35-46) Arterial Blood pO2 at Patient Temp 76 mmHg (65-108) Arterial Blood HCO3 29 mmol/L (21-28) Arterial Blood Base Excess 3 mmol/L (-3-3) FiO2 100 Test 06/14/20 10:30 06/14/20 13:00 06/14/20 17:34 06/15/20 05:50 Sodium Level 136 mmol/L (136-145) Potassium Level 4.5 mmol/L (3.5-5.1) Chloride Level 100 mmol/L (98-107) Carbon Dioxide Level 30 mmol/L (21-32) Anion Gap 6 (6-14) Blood Urea Nitrogen 61 mg/dL (7-20) Creatinine 1.0 mg/dL (0.6-1.0) Estimated GFR (Cockcroft-Gault) 55.3 BUN/Creatinine Ratio 61 (6-20) Glucose Level 221 mg/dL (70-99) Calcium Level 9.3 mg/dL (8.5-10.1) Total Bilirubin 0.4 mg/dL (0.2-1.0) Aspartate Amino Transf (AST/SGOT) 38 U/L (15-37) Alanine Aminotransferase (ALT/SGPT) 13 U/L (14-59) Alkaline Phosphatase 78 U/L (46-116) Total Protein 7.0 g/dL (6.4-8.2) Albumin 1.9 g/dL (3.4-5.0) Albumin/Globulin Ratio 0.4 (1.0-1.7) Glucose (Fingerstick) 221 mg/dL (70-99) 180 mg/dL (70-99) D-Dimer (Sarah) 2.45 ug/mlFEU (0.00-0.50) Test 06/15/20 06:06/15/20 07:55 White Blood Count 12.4 x10^3/uL (4.0-11.0) Red Blood Count 4.58 x10^6/uL (3.50-5.40) Hemoglobin 13.6 g/dL (12.0-15.5) Hematocrit 40.5 % (36.0-47.0) Mean Corpuscular Volume 88 fL (79-100) Mean Corpuscular Hemoglobin 30 pg (25-35) Mean Corpuscular Hemoglobin Concent 34 g/dL (31-37) Red Cell Distribution Width 14.0 % (11.5-14.5) Platelet Count 338 x10^3/uL (140-400) Neutrophils (%) (Auto) 91 % (31-73) Lymphocytes (%) (Auto) 5 % (24-48) Monocytes (%) (Auto) 4 % (0-9) Eosinophils (%) (Auto) 0 % (0-3) Basophils (%) (Auto) 0 % (0-3) Neutrophils # (Auto) 11.2 x10^3/uL (1.8-7.7) Lymphocytes # (Auto) 0.6 x10^3/uL (1.0-4.8) Monocytes # (Auto) 0.5 x10^3/uL (0.0-1.1) Eosinophils # (Auto) 0.0 x10^3/uL (0.0-0.7) Basophils # (Auto) 0.0 x10^3/uL (0.0-0.2) Sodium Level 140 mmol/L (136-145) Potassium Level 4.1 mmol/L (3.5-5.1) Chloride Level 102 mmol/L (98-107) Carbon Dioxide Level 31 mmol/L (21-32) Anion Gap 7 (6-14) Blood Urea Nitrogen 65 mg/dL (7-20) Creatinine 1.0 mg/dL (0.6-1.0) Estimated GFR (Cockcroft-Gault) 55.3 Glucose Level 90 mg/dL (70-99) Calcium Level 9.5 mg/dL (8.5-10.1) Magnesium Level 2.2 mg/dL (1.8-2.4) Ferritin 558 ng/mL (8-252) Lactate Dehydrogenase 507 U/L (81-234) Creatine Kinase 203 U/L (26-192) OU-Wpk-U-Type Natriuretic Peptide 244 pg/mL (0-124) O2 Saturation 92 % (92-99) Arterial Blood pH 7.41 (7.35-7.45) Arterial Blood pCO2 at Patient Temp 44 mmHg (35-46) Arterial Blood pO2 at Patient Temp 65 mmHg (65-108) Arterial Blood HCO3 27 mmol/L (21-28) Arterial Blood Base Excess 2 mmol/L (-3-3) FiO2 80 Laboratory Tests Test 06/14/20 13:00 06/14/20 17:34 06/15/20 05:50 06/15/20 06:05 Glucose (Fingerstick) 221 mg/dL (70-99) 180 mg/dL (70-99) D-Dimer (Sarah) 2.45 ug/mlFEU (0.00-0.50) White Blood Count 12.4 x10^3/uL (4.0-11.0) Red Blood Count 4.58 x10^6/uL (3.50-5.40) Hemoglobin 13.6 g/dL (12.0-15.5) Hematocrit 40.5 % (36.0-47.0) Mean Corpuscular Volume 88 fL (79-100) Mean Corpuscular Hemoglobin 30 pg (25-35) Mean Corpuscular Hemoglobin Concent 34 g/dL (31-37) Red Cell Distribution Width 14.0 % (11.5-14.5) Platelet Count 338 x10^3/uL (140-400) Neutrophils (%) (Auto) 91 % (31-73) Lymphocytes (%) (Auto) 5 % (24-48) Monocytes (%) (Auto) 4 % (0-9) Eosinophils (%) (Auto) 0 % (0-3) Basophils (%) (Auto) 0 % (0-3) Neutrophils # (Auto) 11.2 x10^3/uL (1.8-7.7) Lymphocytes # (Auto) 0.6 x10^3/uL (1.0-4.8) Monocytes # (Auto) 0.5 x10^3/uL (0.0-1.1) Eosinophils # (Auto) 0.0 x10^3/uL (0.0-0.7) Basophils # (Auto) 0.0 x10^3/uL (0.0-0.2) Sodium Level 140 mmol/L (136-145) Potassium Level 4.1 mmol/L (3.5-5.1) Chloride Level 102 mmol/L (98-107) Carbon Dioxide Level 31 mmol/L (21-32) Anion Gap 7 (6-14) Blood Urea Nitrogen 65 mg/dL (7-20) Creatinine 1.0 mg/dL (0.6-1.0) Estimated GFR (Cockcroft-Gault) 55.3 Glucose Level 90 mg/dL (70-99) Calcium Level 9.5 mg/dL (8.5-10.1) Magnesium Level 2.2 mg/dL (1.8-2.4) Ferritin 558 ng/mL (8-252) Lactate Dehydrogenase 507 U/L (81-234) Creatine Kinase 203 U/L (26-192) CO-Wkk-L-Type Natriuretic Peptide 244 pg/mL (0-124) Test 06/15/20 07:55 O2 Saturation 92 % (92-99) Arterial Blood pH 7.41 (7.35-7.45) Arterial Blood pCO2 at Patient Temp 44 mmHg (35-46) Arterial Blood pO2 at Patient Temp 65 mmHg (65-108) Arterial Blood HCO3 27 mmol/L (21-28) Arterial Blood Base Excess 2 mmol/L (-3-3) FiO2 80 Medications Active Scripts Medications Dose Route/Sig Max Daily Dose Days Date Category Sertraline Hcl 100 Mg Tablet 100 Mg PO DAILY 06/07/20 Reported Potassium Chloride 8 Meq Capsule.er 1 Cap PO DAILY 06/07/20 Reported Novolog Flexpen (Insulin Aspart) 100 Unit/1 Ml Insuln.pen 1 Unit SQ TIDAC 06/07/20 Reported Glipizide Er (Glipizide) 5 Mg Tab.er.24 1 Tab PO QAM 06/07/20 Reported Darifenacin ER (Darifenacin Hydrobromide) 7.5 Mg Tab.er.24h 1 Tab PO DAILY 06/07/20 Reported Losartan-Hctz 50-12.5 Mg Tab (Losartan/Hydrochlorothiazide) 1 Each Tablet 1 Tab PO DAILY 06/07/20 Reported Furosemide 40 Mg Tablet 1 Tab PO DAILY 06/07/20 Reported Prednisolone Acetate 5 Ml Drops.susp 2 Drop OU QID 06/07/20 Reported Gabapentin 300 Mg Capsule 600 Mg PO DAILY 06/07/20 Reported Novolog (Insulin Aspart) 100 Unit/1 Ml Cartridge 20 Unit SQ TIDAC 03/25/16 Reported Comments CTA chest IMPRESSION: 1. There is no CT evidence of pulmonary embolus. 2. There are patchy groundglass opacities throughout the lungs with interspersed normal lung. Relative sparing of the basilar left lower lobe and the lung apices. There is no confluent consolidation. Considerations include pneumonia including atypical viral pneumonia, nonspecific pneumonitis, or drug toxicity. Impression . IMPRESSION: 1. Acute hypoxic respiratory failure secondary to acute lung injury, acute respiratory distress syndrome due to COVID-19 pneumonia. 2. COVID-[address] chest with diffuse extensive bilateral infiltrates. No evidence of pulmonary embolism. This finding is consistent with COVID-19 pneumonia. 4. Underlying morbid obesity contributing to hypoxia. prob dante 5. No significant tobacco use. Plan . RECOMMENDATIONS: Continue current supplemental oxygen with BiPAP 80% Follow chest x-ray and ABG, no changes today Follow infectious disease recommendations, currently off antibiotics Continue remdesivir for full 5-day course Continue steroids with taper Follow cultures, no growth to date Continue PPN for nutritional support Full code. DVT/GI prophylaxis Discussed with RN and RT. Critical care time [id number] AVA JOHNSON MD Jun 15, 2020 11:47
--- NOTE | 2020-06-15 14:25 | PDOC ---
[employer] PROGRESS NOTE Date of Service DOS: DATE: 06/15/20 TIME: 14:23 Chief Complaint Chief Complaint Acute respiratory failure with Hypoxia - related to COVID 19 + acute bronchitis Pneumonia due to 2019 novel coronavirus Acute exacerbation of COPD with bronchitis Elevated d-dimer DM2 (A1c 7.7) Depression COPD HTN Stress incontinence Morbid obesity , BMI 48.6 Severe protein calorie malnutrition History of Present Illness History of Present Illness 06/15/2020 Patient currently on BiPAP support of 80% FiO2. Saturating 100%.> 50% time spent in patient chart, labs, and imaging review and in discussion with RN and SW A total of 35 minutes of critical care time was spent in reviewing chart, labs, and images. Discussed with RN and SW. 06/14/2020 Patient was moved to ICU due to worsening respiratory failure. Completed remdesivir. Currently on BiPAP FiO2 100%. Discussed with RN, she is afebrile, not improving. 06/12. still on resp support, very hypoxic, but comfortable no acute change, ID and pulm following, cont current not improving, prognosis worsens with lack of improvement over time 06/11, now on the BIPAP, has declined, ID and PULM following, cont other managemnt 06/10/2020 Patient seen and examined on the COVID-19 floor She is on BiPAP Started on remdesivir as well per pulmonary Discussed with case management Discussed with RN Chart reviewed She is extremely ill 06/09/2020 Patient seen and examined on the COVID-19 floor She is on 100% nonrebreather appears quite ill Discussed with case management Discussed with RN Chart reviewed Vitals/I&O Vitals/I&O: Vital Signs Date Time Temp Pulse Resp B/P (MAP) Pulse Ox O2 Delivery O2 Flow Rate FiO2 06/15/20 14:00 64 26 125/60 (81) 98 BiPAP/CPAP 06/15/20 12:00 98.4 98.4 I & O 06/14/20 06/14/20 06/15/20 15:00 23:00 07:00 Intake Total 150 ml 1105 ml 677 ml Output Total 800 ml 1100 ml 585 ml Balance -650 ml 5 ml 92 ml Physical Exam Physical Exam: GENERAL: Alert, oriented female, in mild distress. VITAL SIGNS: Stable, afebrile. HEENT: NAD. NECK: Supple, no JVP, no lymphadenopathy. LUNGS: Bibasilar crackles on BiPAP HEART: S1, S2 regular. ABDOMEN: Benign. EXTREMITIES: No edema, cyanosis. SKIN: Unremarkable. NEUROLOGIC: Flat affect very sleepy General: Alert, Cooperative, mild distress, moderate distress, Other (On BiPAP) Heart: Other (Tachycardic) Lungs: Crackles Abdomen: Normal bowel sounds, Soft, No tenderness, No hepatosplenomegaly, No masses Extremities: No clubbing, No cyanosis, No edema, Normal pulses, No tenderness/swelling Skin: No rashes, No breakdown, No significant lesion Labs Labs: Laboratory Tests Test 06/14/20 17:34 06/15/20 05:50 06/15/20 06:05 06/15/20 07:55 Glucose (Fingerstick) 180 mg/dL (70-99) D-Dimer (Sarah) 2.45 ug/mlFEU (0.00-0.50) White Blood Count 12.4 x10^3/uL (4.0-11.0) Red Blood Count 4.58 x10^6/uL (3.50-5.40) Hemoglobin 13.6 g/dL (12.0-15.5) Hematocrit 40.5 % (36.0-47.0) Mean Corpuscular Volume 88 fL (79-100) Mean Corpuscular Hemoglobin 30 pg (25-35) Mean Corpuscular Hemoglobin Concent 34 g/dL (31-37) Red Cell Distribution Width 14.0 % (11.5-14.5) Platelet Count 338 x10^3/uL (140-400) Neutrophils (%) (Auto) 91 % (31-73) Lymphocytes (%) (Auto) 5 % (24-48) Monocytes (%) (Auto) 4 % (0-9) Eosinophils (%) (Auto) 0 % (0-3) Basophils (%) (Auto) 0 % (0-3) Neutrophils # (Auto) 11.2 x10^3/uL (1.8-7.7) Lymphocytes # (Auto) 0.6 x10^3/uL (1.0-4.8) Monocytes # (Auto) 0.5 x10^3/uL (0.0-1.1) Eosinophils # (Auto) 0.0 x10^3/uL (0.0-0.7) Basophils # (Auto) 0.0 x10^3/uL (0.0-0.2) Sodium Level 140 mmol/L (136-145) Potassium Level 4.1 mmol/L (3.5-5.1) Chloride Level 102 mmol/L (98-107) Carbon Dioxide Level 31 mmol/L (21-32) Anion Gap 7 (6-14) Blood Urea Nitrogen 65 mg/dL (7-20) Creatinine 1.0 mg/dL (0.6-1.0) Estimated GFR (Cockcroft-Gault) 55.3 Glucose Level 90 mg/dL (70-99) Calcium Level 9.5 mg/dL (8.5-10.1) Magnesium Level 2.2 mg/dL (1.8-2.4) Ferritin 558 ng/mL (8-252) Lactate Dehydrogenase 507 U/L (81-234) Creatine Kinase 203 U/L (26-192) HU-Hic-Z-Type Natriuretic Peptide 244 pg/mL (0-124) O2 Saturation 92 % (92-99) Arterial Blood pH 7.41 (7.35-7.45) Arterial Blood pCO2 at Patient Temp 44 mmHg (35-46) Arterial Blood pO2 at Patient Temp 65 mmHg (65-108) Arterial Blood HCO3 27 mmol/L (21-28) Arterial Blood Base Excess 2 mmol/L (-3-3) FiO2 80 Assessment and Plan Assessmemt and Plan Problems Medical Problems: (1) Elevated d-dimer Status: Acute (2) Hypoxia Status: Acute (3) Pneumonia due to 2019 novel coronavirus Status: Acute Comment Review of Relevant I have reviewed the following items angel luis (where applicable) has been applied. Medications: Current Medications Medications (Trade) Dose Ordered Sig/Kaiser Route PRN Reason Start Time Stop Time Status Last Admin Dose Admin Nystatin (Nystop) 1 vianca BID TP 06/14/20 21:00 06/15/20 08:23 Justifications for Admission Other Justification ALIREZA KINCAID MD Jun 15, 2020 14:25
--- NOTE | 2020-06-15 16:19 | NUR ---
SS following for discharge planning. SS reviewed pt chart and discussed with pt RN. Pt transferred from 6S. Pt is currently on the BIPAP at 80%. COVID19 positive. Not stable. SS will continue to follow for discharge planning.
--- NOTE | 2020-06-15 17:07 | NUR ---
Wound/Ostomy Care Wound Type/Assessment: WC consult for buttock wound. Pt has skin tear to left buttock that is resolving, coccyx is red but blanchable. Treatment Recommendations/Plan: A&D ointment applied, recommend to reapply calazime BID and PRN Education provided: PU prevention and WC POC Offloading surface/device: ICU bed Recommended Referrals/Tests: none Discharge Recommendations for dressings:
[2020-06-15] MEDS: INSULIN GLARGINE SYRINGE. SQ SCH (21:57)
[2020-06-16] VITALS (24 sets, daily range): BP systolic 99–136; BP diastolic 40–76
[2020-06-16] MEDS: AMINO AC 3%/ELECTROLYTE/GLYCER 1,000 ML IV SCH ×2 (05:59→20:54)
[2020-06-16] MEDS: INSULIN LISPRO 300 UNITS/3 ML VIAL. SQ SCH ×6 (08:21→17:59)
[2020-06-16] MEDS: glipiZIDE ER 2.5 MG TAB.ER.24 PO SCH (08:21)
[2020-06-16] MEDS: FUROSEMIDE 40 MG TABLET. PO SCH (08:22)
[2020-06-16] MEDS: GABAPENTIN 300 MG CAPSULE. PO SCH (08:23)
[2020-06-16] MEDS: ASCORBIC ACID 500 MG TABLET PO SCH (08:23)
[2020-06-16] MEDS: SERTRALINE 50 MG TABLET. PO SCH (08:23)
[2020-06-16] MEDS: OXYBUTYNIN CHLORIDE 5 MG TABLET PO SCH ×2 (08:23→20:56)
[2020-06-16] MEDS: POTASSIUM CHLORIDE 10 MEQ TABLET.ER. PO SCH (08:23)
[2020-06-16] MEDS: hydroCHLOROthiazide 12.5 MG CAPSULE PO SCH (08:23)
[2020-06-16] MEDS: LOSARTAN POTASSIUM 50 MG TABLET. PO SCH (08:24)
[2020-06-16] MEDS: ZINC SULFATE 220 MG CAPSULE. PO SCH (08:24)
[2020-06-16] MEDS: ENOXAPARIN 40 MG/0.4 ML SYRINGE. SQ SCH ×2 (08:25→20:56)
[2020-06-16] MEDS: DEXAMETHASONE 0.1% OPHTH SOLUTION 5ML BOTTLE. OU SCH ×4 (08:25→20:56)
[2020-06-16] MEDS: DEXAMETHASONE SOD PHOS 4 MG/ML VIAL IVP SCH (08:25)
[2020-06-16] MEDS: NYSTATIN TOPICAL POWDER 15GM BOTTLE. TP SCH ×2 (08:26→20:58)
[2020-06-16 08:35] LABS: BASE EXCESS ABG 1 mmol/L (-3-3); HCO3 ABG 26 mmol/L (21-28); PCO2 ABG 43 mmHg (35-46); PO2 ABG 57 mmHg (65-108); SAT O2 ABG 88 % (92-99)
--- NOTE | 2020-06-16 08:36 | PDOC ---
Infectious Disease Note Subjective Subjective on bipap ROS ROS no n/v/d/ Vital Sign Vital Signs Vital Signs Date Time Temp Pulse Resp B/P (MAP) Pulse Ox O2 Delivery O2 Flow Rate FiO2 06/16/20 08:24 60 114/57 06/16/20 07:27 97 BiPAP/CPAP 06/16/20 07:00 28 06/16/20 04:00 97.8 97.8 Physical Exam PHYSICAL EXAM GENERAL: Alert, oriented female, in mild distress. VITAL SIGNS: Stable, afebrile. HEENT: NAD. NECK: Supple, no JVP, no lymphadenopathy. LUNGS: Bibasilar crackles on BiPAP HEART: S1, S2 regular. ABDOMEN: Benign. EXTREMITIES: No edema, cyanosis. SKIN: Unremarkable. NEUROLOGIC: Flat affect very sleepy Labs Lab Laboratory Tests Test 06/15/20 17:55 06/15/20 22:34 Glucose (Fingerstick) 197 mg/dL (70-99) 169 mg/dL (70-99) Micro Microbiology 06/08/20 Blood Culture - Preliminary, Resulted NO GROWTH AFTER 1 DAY Objective Assessment IMPRESSION: 1. COVID-19 positive. 2. COVID-19 pneumonia. 3. Respiratory failure. 4. Obesity. 5. Chronic obstructive pulmonary disease. 6. Hypertension. 7. Diabetes. Plan Plan of Care cont current treatment supportive care bipap Overall prognosis poor GAVIN ELIAS MD Jun 16, 2020 08:36
--- NOTE | 2020-06-16 08:36 | PDOC ---
PULMONARY PROGRESS NOTES DATE: 06/16/20 TIME: 08:36 Subjective Patient remains on BiPAP, currently 90% Afebrile overnight No overnight concerns from nursing Vitals Vital Signs Date Time Temp Pulse Resp B/P (MAP) Pulse Ox O2 Delivery O2 Flow Rate FiO2 06/16/20 08:24 60 114/57 06/16/20 07:27 97 BiPAP/CPAP 06/16/20 07:00 28 06/16/20 04:00 97.8 97.8 Comments Patient seen during , visual exam performed Obesity On BiPAP Regular rate and rhythm no accessory muscle use Bilateral lower extremity edema trace Lungs: Crackles Labs Laboratory Tests Test 06/14/20 08:44 06/14/20 10:30 06/14/20 13:00 06/14/20 17:34 Glucose (Fingerstick) 206 mg/dL (70-99) 221 mg/dL (70-99) 180 mg/dL (70-99) Sodium Level 136 mmol/L (136-145) Potassium Level 4.5 mmol/L (3.5-5.1) Chloride Level 100 mmol/L (98-107) Carbon Dioxide Level 30 mmol/L (21-32) Anion Gap 6 (6-14) Blood Urea Nitrogen 61 mg/dL (7-20) Creatinine 1.0 mg/dL (0.6-1.0) Estimated GFR (Cockcroft-Gault) 55.3 BUN/Creatinine Ratio 61 (6-20) Glucose Level 221 mg/dL (70-99) Calcium Level 9.3 mg/dL (8.5-10.1) Total Bilirubin 0.4 mg/dL (0.2-1.0) Aspartate Amino Transf (AST/SGOT) 38 U/L (15-37) Alanine Aminotransferase (ALT/SGPT) 13 U/L (14-59) Alkaline Phosphatase 78 U/L (46-116) Total Protein 7.0 g/dL (6.4-8.2) Albumin 1.9 g/dL (3.4-5.0) Albumin/Globulin Ratio 0.4 (1.0-1.7) Test 06/14/20 22:21 06/15/20 00:25 06/15/20 04:24 06/15/20 05:06 Glucose (Fingerstick) 107 mg/dL (70-99) 87 mg/dL (70-99) 66 mg/dL (70-99) 92 mg/dL (70-99) Test 06/15/20 05:50 06/15/20 06:05 06/15/20 07:55 06/15/20 08:30 D-Dimer (Sarah) 2.45 ug/mlFEU (0.00-0.50) White Blood Count 12.4 x10^3/uL (4.0-11.0) Red Blood Count 4.58 x10^6/uL (3.50-5.40) Hemoglobin 13.6 g/dL (12.0-15.5) Hematocrit 40.5 % (36.0-47.0) Mean Corpuscular Volume 88 fL (79-100) Mean Corpuscular Hemoglobin 30 pg (25-35) Mean Corpuscular Hemoglobin Concent 34 g/dL (31-37) Red Cell Distribution Width 14.0 % (11.5-14.5) Platelet Count 338 x10^3/uL (140-400) Neutrophils (%) (Auto) 91 % (31-73) Lymphocytes (%) (Auto) 5 % (24-48) Monocytes (%) (Auto) 4 % (0-9) Eosinophils (%) (Auto) 0 % (0-3) Basophils (%) (Auto) 0 % (0-3) Neutrophils # (Auto) 11.2 x10^3/uL (1.8-7.7) Lymphocytes # (Auto) 0.6 x10^3/uL (1.0-4.8) Monocytes # (Auto) 0.5 x10^3/uL (0.0-1.1) Eosinophils # (Auto) 0.0 x10^3/uL (0.0-0.7) Basophils # (Auto) 0.0 x10^3/uL (0.0-0.2) Sodium Level 140 mmol/L (136-145) Potassium Level 4.1 mmol/L (3.5-5.1) Chloride Level 102 mmol/L (98-107) Carbon Dioxide Level 31 mmol/L (21-32) Anion Gap 7 (6-14) Blood Urea Nitrogen 65 mg/dL (7-20) Creatinine 1.0 mg/dL (0.6-1.0) Estimated GFR (Cockcroft-Gault) 55.3 Glucose Level 90 mg/dL (70-99) Calcium Level 9.5 mg/dL (8.5-10.1) Magnesium Level 2.2 mg/dL (1.8-2.4) Ferritin 558 ng/mL (8-252) Lactate Dehydrogenase 507 U/L (81-234) Creatine Kinase 203 U/L (26-192) FS-Lqu-B-Type Natriuretic Peptide 244 pg/mL (0-124) O2 Saturation 92 % (92-99) Arterial Blood pH 7.41 (7.35-7.45) Arterial Blood pCO2 at Patient Temp 44 mmHg (35-46) Arterial Blood pO2 at Patient Temp 65 mmHg (65-108) Arterial Blood HCO3 27 mmol/L (21-28) Arterial Blood Base Excess 2 mmol/L (-3-3) FiO2 80 Glucose (Fingerstick) 71 mg/dL (70-99) Test 06/15/20 17:55 06/15/20 22:34 Glucose (Fingerstick) 197 mg/dL (70-99) 169 mg/dL (70-99) Laboratory Tests Test 06/15/20 17:55 06/15/20 22:34 Glucose (Fingerstick) 197 mg/dL (70-99) 169 mg/dL (70-99) Medications Active Scripts Medications Dose Route/Sig Max Daily Dose Days Date Category Sertraline Hcl 100 Mg Tablet 100 Mg PO DAILY 06/07/20 Reported Potassium Chloride 8 Meq Capsule.er 1 Cap PO DAILY 06/07/20 Reported Novolog Flexpen (Insulin Aspart) 100 Unit/1 Ml Insuln.pen 1 Unit SQ TIDAC 06/07/20 Reported Glipizide Er (Glipizide) 5 Mg Tab.er.24 1 Tab PO QAM 06/07/20 Reported Darifenacin ER (Darifenacin Hydrobromide) 7.5 Mg Tab.er.24h 1 Tab PO DAILY 06/07/20 Reported Losartan-Hctz 50-12.5 Mg Tab (Losartan/Hydrochlorothiazide) 1 Each Tablet 1 Tab PO DAILY 06/07/20 Reported Furosemide 40 Mg Tablet 1 Tab PO DAILY 06/07/20 Reported Prednisolone Acetate 5 Ml Drops.susp 2 Drop OU QID 06/07/20 Reported Gabapentin 300 Mg Capsule 600 Mg PO DAILY 06/07/20 Reported Novolog (Insulin Aspart) 100 Unit/1 Ml Cartridge 20 Unit SQ TIDAC 03/25/16 Reported Comments CTA chest IMPRESSION: 1. There is no CT evidence of pulmonary embolus. 2. There are patchy groundglass opacities throughout the lungs with interspersed normal lung. Relative sparing of the basilar left lower lobe and the lung apices. There is no confluent consolidation. Considerations include pneumonia including atypical viral pneumonia, nonspecific pneumonitis, or drug toxicity. Impression . IMPRESSION: 1. Acute hypoxic respiratory failure secondary to acute lung injury, acute respiratory distress syndrome due to COVID-19 pneumonia. 2. COVID-[address] chest with diffuse extensive bilateral infiltrates. No evidence of pulmonary embolism. This finding is consistent with COVID-19 pneumonia. 4. Underlying morbid obesity contributing to hypoxia. prob dante 5. No significant tobacco use. Plan . RECOMMENDATIONS: Continue current supplemental oxygen with BiPAP 90% Follow chest x-ray and ABG, no changes today Follow infectious disease recommendations, currently off antibiotics Continue remdesivir for full 5-day course Continue steroids with taper Follow cultures, no growth to date Continue PPN for nutritional support planned for PICC line today Full code. DVT/GI prophylaxis Discussed with RN and RT. Critical care time [id number] AVA JOHNSON MD Jun 16, 2020 08:36
[2020-06-16 08:40] LABS: FIO2 ABG 80/BIPAP
--- NOTE | 2020-06-16 11:15 | PDOC ---
[employer] PROGRESS NOTE Date of Service DOS: DATE: 06/16/20 TIME: 11:14 Chief Complaint Chief Complaint Acute respiratory failure with Hypoxia - related to COVID 19 + acute bronchitis Pneumonia due to 2019 novel coronavirus Acute exacerbation of COPD with bronchitis Elevated d-dimer DM2 (A1c 7.7) Depression COPD HTN Stress incontinence Morbid obesity , BMI 48.6 Severe protein calorie malnutrition History of Present Illness History of Present Illness 06/16/2020 Currently on BiPAP support of 90% FiO2. ABG showing hypoxemia. Patient currently appears to be slightly dyspneic. That is unchanged from yesterday.> 50% time spent in patient chart, labs, and imaging review and in discussion with RN and SW 06/15/2020 Patient currently on BiPAP support of 80% FiO2. Saturating 100%.> 50% time spent in patient chart, labs, and imaging review and in discussion with RN and SW A total of 35 minutes of critical care time was spent in reviewing chart, labs, and images. Discussed with RN and SW. 06/14/2020 Patient was moved to ICU due to worsening respiratory failure. Completed remdesivir. Currently on BiPAP FiO2 100%. Discussed with RN, she is afebrile, not improving. 06/12. still on resp support, very hypoxic, but comfortable no acute change, ID and pulm following, cont current not improving, prognosis worsens with lack of improvement over time 06/11, now on the BIPAP, has declined, ID and PULM following, cont other managemnt 06/10/2020 Patient seen and examined on the [facility]- floor She is on BiPAP Started on remdesivir as well per pulmonary Discussed with case management Discussed with RN Chart reviewed She is extremely ill 06/09/2020 Patient seen and examined on the [facility]-19 floor She is on 100% nonrebreather appears quite ill Discussed with case management Discussed with RN Chart reviewed Vitals/I&O Vitals/I&O: Vital Signs Date Time Temp Pulse Resp B/P (MAP) Pulse Ox O2 Delivery O2 Flow Rate FiO2 06/16/20 10:00 68 23 119/56 (77) 96 BiPAP/CPAP 06/16/20 08:00 97.9 97.9 I & O 06/15/20 06/15/20 06/16/20 15:00 23:00 07:00 Intake Total 480 ml 1209 ml 889 ml Output Total 705 ml 1000 ml 380 ml Balance -225 ml 209 ml 509 ml Physical Exam Physical Exam: GENERAL: Alert, oriented female, in mild distress. VITAL SIGNS: Stable, afebrile. HEENT: NAD. NECK: Supple, no JVP, no lymphadenopathy. LUNGS: Bibasilar crackles on BiPAP HEART: S1, S2 regular. ABDOMEN: Benign. EXTREMITIES: No edema, cyanosis. SKIN: Unremarkable. NEUROLOGIC: Flat affect very sleepy General: Alert, Cooperative, mild distress, moderate distress, Other (On BiPAP) Heart: Other (Tachycardic) Lungs: Crackles Abdomen: Normal bowel sounds, Soft, No tenderness, No hepatosplenomegaly, No masses Extremities: No clubbing, No cyanosis, No edema, Normal pulses, No tenderness/swelling Skin: No rashes, No breakdown, No significant lesion Labs Labs: Laboratory Tests Test 06/15/20 17:55 06/15/20 22:34 06/16/20 08:00 Glucose (Fingerstick) 197 mg/dL (70-99) 169 mg/dL (70-99) O2 Saturation 88 % (92-99) Arterial Blood pH 7.40 (7.35-7.45) Arterial Blood pCO2 at Patient Temp 43 mmHg (35-46) Arterial Blood pO2 at Patient Temp 57 mmHg (65-108) Arterial Blood HCO3 26 mmol/L (21-28) Arterial Blood Base Excess 1 mmol/L (-3-3) FiO2 80/bipap Assessment and Plan Assessmemt and Plan Problems Medical Problems: (1) Elevated d-dimer Status: Acute (2) Hypoxia Status: Acute (3) Pneumonia due to 2019 novel coronavirus Status: Acute Comment Review of Relevant I have reviewed the following items angel luis (where applicable) has been applied. Medications: Current Medications Medications (Trade) Dose Ordered Sig/Kaiser Route PRN Reason Start Time Stop Time Status Last Admin Dose Admin Dexamethasone Sodium Phosphate (Decadron) 4 mg DAILY IVP 06/16/20 09:00 06/16/20 08:25 Justifications for Admission Other Justification ALIREZA KINCAID MD Jun 16, 2020 11:15
[2020-06-16 12:21] LABS: CALCIUM 9.7 mg/dL (8.5-10.1); GFR 55.3; POTASSIUM 4.4 mmol/L (3.5-5.1)
[2020-06-16 12:40] LABS: BASO % 0 % (0-3); EOS # 0.2 x10^3/uL (0.0-0.7); EOS % 2 % (0-3); HEMATOCRIT 40.3 % (36.0-47.0); HEMOGLOBIN 13.3 g/dL (12.0-15.5); LYMPH # 0.7 x10^3/uL (1.0-4.8); LYMPH % 6 % (24-48); MEAN CORPUSCULAR HEMOGLOBIN 29 pg (25-35); MEAN CORPUSCULAR HGB CONC 33 g/dL (31-37); MEAN CORPUSCULAR VOLUME 89 fL (79-100); MONO # 0.4 x10^3/uL (0.0-1.1); MONO % 3 % (0-9); NEUT # 10.7 x10^3/uL (1.8-7.7); NEUT % 89 % (31-73); PLATELET COUNT 331 x10^3/uL (140-400); RED BLOOD COUNT 4.53 x10^6/uL (3.50-5.40)
--- NOTE | 2020-06-16 15:46 | NUR ---
SS following up with discharge planning. SS reviewed pt chart and discussed with pt RN. Pt is currently on the BIPAP at 90%. COVID19 positive. Not stable. SS will continue to follow for discharge planning.
--- NOTE | 2020-06-16 20:51 | RAD ---
EXAM: CHEST ONE VIEW. HISTORY: PICC line placement. COVID-19. COMPARISON: 06/07/2020. FINDINGS: A frontal view of the chest is obtained. A right arm PICC line has its tip in the superior cavoatrial junction. Spinal stimulator electrodes and cholecystectomy clips are noted. Changes of int ernal fixation of a left proximal humeral fracture are partially visualized. Bilateral diffuse groundglass infiltrates are less well aerated than on the prior study. There is no pneumothorax or clear pleural effusion. The heart is not enlarged. IMPRESSION: 1. Bilateral basilar predominant infiltrates are less well aerated than previously. Electronically signed by: Vitor Killian MD (06/16/2020 8:48 PM) [facility]
[2020-06-16] MEDS: INSULIN GLARGINE SYRINGE. SQ SCH (20:58)
[2020-06-17] VITALS (24 sets, daily range): BP systolic 103–135; BP diastolic 51–68
[2020-06-17 05:45] LABS: CALCIUM 9.2 mg/dL (8.5-10.1); CREATININE 0.9 mg/dL (0.6-1.0); GFR 62.5; POTASSIUM 4.1 mmol/L (3.5-5.1)
[2020-06-17 06:51] LABS: BASO % 0 % (0-3); EOS # 0.2 x10^3/uL (0.0-0.7); EOS % 2 % (0-3); HEMOGLOBIN 12.2 g/dL (12.0-15.5); LYMPH # 0.7 x10^3/uL (1.0-4.8); LYMPH % 7 % (24-48); MEAN CORPUSCULAR HEMOGLOBIN 29 pg (25-35); MEAN CORPUSCULAR HGB CONC 33 g/dL (31-37); MEAN CORPUSCULAR VOLUME 87 fL (79-100); MONO # 0.4 x10^3/uL (0.0-1.1); MONO % 4 % (0-9); NEUT # 9.1 x10^3/uL (1.8-7.7); NEUT % 87 % (31-73); PLATELET COUNT 322 x10^3/uL (140-400); RED BLOOD COUNT 4.25 x10^6/uL (3.50-5.40); RED CELL DISTRIBUTION WIDTH 13.7 % (11.5-14.5); WHITE BLOOD COUNT 10.5 x10^3/uL (4.0-11.0)
[2020-06-17] MEDS: AMINO AC 3%/ELECTROLYTE/GLYCER 1,000 ML IV SCH ×2 (07:57→17:30)
[2020-06-17] MEDS: glipiZIDE ER 2.5 MG TAB.ER.24 PO SCH (07:59)
[2020-06-17] MEDS: INSULIN LISPRO 300 UNITS/3 ML VIAL. SQ SCH ×6 (08:00→17:25)
[2020-06-17] MEDS: ENOXAPARIN 40 MG/0.4 ML SYRINGE. SQ SCH ×2 (08:06→20:45)
[2020-06-17] MEDS: ASCORBIC ACID 500 MG TABLET PO SCH (08:07)
[2020-06-17] MEDS: DEXAMETHASONE SOD PHOS 4 MG/ML VIAL IVP SCH (08:07)
[2020-06-17] MEDS: LOSARTAN POTASSIUM 50 MG TABLET. PO SCH (08:07)
[2020-06-17] MEDS: ZINC SULFATE 220 MG CAPSULE. PO SCH (08:07)
[2020-06-17] MEDS: GABAPENTIN 300 MG CAPSULE. PO SCH (08:07)
[2020-06-17] MEDS: OXYBUTYNIN CHLORIDE 5 MG TABLET PO SCH ×2 (08:07→20:46)
[2020-06-17] MEDS: SERTRALINE 50 MG TABLET. PO SCH (08:08)
[2020-06-17] MEDS: FUROSEMIDE 40 MG TABLET. PO SCH (08:08)
[2020-06-17] MEDS: hydroCHLOROthiazide 12.5 MG CAPSULE PO SCH (08:08)
[2020-06-17] MEDS: POTASSIUM CHLORIDE 10 MEQ TABLET.ER. PO SCH (08:08)
[2020-06-17] MEDS: DEXAMETHASONE 0.1% OPHTH SOLUTION 5ML BOTTLE. OU SCH ×4 (08:09→20:55)
[2020-06-17] MEDS: NYSTATIN TOPICAL POWDER 15GM BOTTLE. TP SCH ×2 (08:09→20:56)
--- NOTE | 2020-06-17 08:09 | PDOC ---
Infectious Disease Note Subjective Subjective on bipap ROS ROS no n/v/d/ Vital Sign Vital Signs Vital Signs Date Time Temp Pulse Resp B/P (MAP) Pulse Ox O2 Delivery O2 Flow Rate FiO2 06/17/20 07:06 64 24 129/55 (79) 94 BiPAP/CPAP 06/17/20 04:00 97.9 97.9 Physical Exam PHYSICAL EXAM GENERAL: Alert, oriented female, in mild distress. VITAL SIGNS: Stable, afebrile. HEENT: NAD. NECK: Supple, no JVP, no lymphadenopathy. LUNGS: Bibasilar crackles on BiPAP HEART: S1, S2 regular. ABDOMEN: Benign. EXTREMITIES: No edema, cyanosis. SKIN: Unremarkable. NEUROLOGIC: Flat affect very sleepy Labs Lab Laboratory Tests Test 06/16/20 08:20 06/16/20 11:35 06/16/20 12:20 06/16/20 17:57 Glucose (Fingerstick) 114 mg/dL (70-99) 152 mg/dL (70-99) 307 mg/dL (70-99) White Blood Count 12.0 x10^3/uL (4.0-11.0) Red Blood Count 4.53 x10^6/uL (3.50-5.40) Hemoglobin 13.3 g/dL (12.0-15.5) Hematocrit 40.3 % (36.0-47.0) Mean Corpuscular Volume 89 fL (79-100) Mean Corpuscular Hemoglobin 29 pg (25-35) Mean Corpuscular Hemoglobin Concent 33 g/dL (31-37) Red Cell Distribution Width 14.0 % (11.5-14.5) Platelet Count 331 x10^3/uL (140-400) Neutrophils (%) (Auto) 89 % (31-73) Lymphocytes (%) (Auto) 6 % (24-48) Monocytes (%) (Auto) 3 % (0-9) Eosinophils (%) (Auto) 2 % (0-3) Basophils (%) (Auto) 0 % (0-3) Neutrophils # (Auto) 10.7 x10^3/uL (1.8-7.7) Lymphocytes # (Auto) 0.7 x10^3/uL (1.0-4.8) Monocytes # (Auto) 0.4 x10^3/uL (0.0-1.1) Eosinophils # (Auto) 0.2 x10^3/uL (0.0-0.7) Basophils # (Auto) 0.0 x10^3/uL (0.0-0.2) Sodium Level 136 mmol/L (136-145) Potassium Level 4.4 mmol/L (3.5-5.1) Chloride Level 99 mmol/L (98-107) Carbon Dioxide Level 27 mmol/L (21-32) Anion Gap 10 (6-14) Blood Urea Nitrogen 84 mg/dL (7-20) Creatinine 1.0 mg/dL (0.6-1.0) Estimated GFR (Cockcroft-Gault) 55.3 Glucose Level 107 mg/dL (70-99) Calcium Level 9.7 mg/dL (8.5-10.1) Test 06/17/20 05:25 White Blood Count 10.5 x10^3/uL (4.0-11.0) Red Blood Count 4.25 x10^6/uL (3.50-5.40) Hemoglobin 12.2 g/dL (12.0-15.5) Hematocrit 37.0 % (36.0-47.0) Mean Corpuscular Volume 87 fL (79-100) Mean Corpuscular Hemoglobin 29 pg (25-35) Mean Corpuscular Hemoglobin Concent 33 g/dL (31-37) Red Cell Distribution Width 13.7 % (11.5-14.5) Platelet Count 322 x10^3/uL (140-400) Neutrophils (%) (Auto) 87 % (31-73) Lymphocytes (%) (Auto) 7 % (24-48) Monocytes (%) (Auto) 4 % (0-9) Eosinophils (%) (Auto) 2 % (0-3) Basophils (%) (Auto) 0 % (0-3) Neutrophils # (Auto) 9.1 x10^3/uL (1.8-7.7) Lymphocytes # (Auto) 0.7 x10^3/uL (1.0-4.8) Monocytes # (Auto) 0.4 x10^3/uL (0.0-1.1) Eosinophils # (Auto) 0.2 x10^3/uL (0.0-0.7) Basophils # (Auto) 0.0 x10^3/uL (0.0-0.2) Sodium Level 135 mmol/L (136-145) Potassium Level 4.1 mmol/L (3.5-5.1) Chloride Level 100 mmol/L (98-107) Carbon Dioxide Level 28 mmol/L (21-32) Anion Gap 7 (6-14) Blood Urea Nitrogen 97 mg/dL (7-20) Creatinine 0.9 mg/dL (0.6-1.0) Estimated GFR (Cockcroft-Gault) 62.5 Glucose Level 127 mg/dL (70-99) Calcium Level 9.2 mg/dL (8.5-10.1) Micro Microbiology 06/08/20 Blood Culture - Preliminary, Resulted NO GROWTH AFTER 1 DAY Objective Assessment IMPRESSION: 1. COVID-19 positive. 2. COVID-19 pneumonia. 3. Respiratory failure. 4. Obesity. 5. Chronic obstructive pulmonary disease. 6. Hypertension. 7. Diabetes. Plan Plan of Care cont current treatment supportive care bipap Overall prognosis poor will s/o , please call if questions GAVIN ELIAS MD Jun 17, 2020 08:09
--- NOTE | 2020-06-17 08:14 | PDOC ---
PULMONARY PROGRESS NOTES DATE: 06/17/20 TIME: 08:14 Subjective Patient remains on BiPAP, currently 90% Afebrile overnight No overnight concerns from nursing Vitals Vital Signs Date Time Temp Pulse Resp B/P (MAP) Pulse Ox O2 Delivery O2 Flow Rate FiO2 06/17/20 07:06 64 24 129/55 (79) 94 BiPAP/CPAP 06/17/20 04:00 97.9 97.9 Comments Patient seen during , visual exam performed Obesity On BiPAP Regular rate and rhythm no accessory muscle use Bilateral lower extremity edema trace Lungs: Clear Labs Laboratory Tests Test 06/15/20 08:30 06/15/20 17:55 06/15/20 22:34 06/16/20 08:00 Glucose (Fingerstick) 71 mg/dL (70-99) 197 mg/dL (70-99) 169 mg/dL (70-99) O2 Saturation 88 % (92-99) Arterial Blood pH 7.40 (7.35-7.45) Arterial Blood pCO2 at Patient Temp 43 mmHg (35-46) Arterial Blood pO2 at Patient Temp 57 mmHg (65-108) Arterial Blood HCO3 26 mmol/L (21-28) Arterial Blood Base Excess 1 mmol/L (-3-3) FiO2 80/bipap Test 06/16/20 08:20 06/16/20 11:35 06/16/20 12:20 06/16/20 17:57 Glucose (Fingerstick) 114 mg/dL (70-99) 152 mg/dL (70-99) 307 mg/dL (70-99) White Blood Count 12.0 x10^3/uL (4.0-11.0) Red Blood Count 4.53 x10^6/uL (3.50-5.40) Hemoglobin 13.3 g/dL (12.0-15.5) Hematocrit 40.3 % (36.0-47.0) Mean Corpuscular Volume 89 fL (79-100) Mean Corpuscular Hemoglobin 29 pg (25-35) Mean Corpuscular Hemoglobin Concent 33 g/dL (31-37) Red Cell Distribution Width 14.0 % (11.5-14.5) Platelet Count 331 x10^3/uL (140-400) Neutrophils (%) (Auto) 89 % (31-73) Lymphocytes (%) (Auto) 6 % (24-48) Monocytes (%) (Auto) 3 % (0-9) Eosinophils (%) (Auto) 2 % (0-3) Basophils (%) (Auto) 0 % (0-3) Neutrophils # (Auto) 10.7 x10^3/uL (1.8-7.7) Lymphocytes # (Auto) 0.7 x10^3/uL (1.0-4.8) Monocytes # (Auto) 0.4 x10^3/uL (0.0-1.1) Eosinophils # (Auto) 0.2 x10^3/uL (0.0-0.7) Basophils # (Auto) 0.0 x10^3/uL (0.0-0.2) Sodium Level 136 mmol/L (136-145) Potassium Level 4.4 mmol/L (3.5-5.1) Chloride Level 99 mmol/L (98-107) Carbon Dioxide Level 27 mmol/L (21-32) Anion Gap 10 (6-14) Blood Urea Nitrogen 84 mg/dL (7-20) Creatinine 1.0 mg/dL (0.6-1.0) Estimated GFR (Cockcroft-Gault) 55.3 Glucose Level 107 mg/dL (70-99) Calcium Level 9.7 mg/dL (8.5-10.1) Test 06/17/20 05:25 White Blood Count 10.5 x10^3/uL (4.0-11.0) Red Blood Count 4.25 x10^6/uL (3.50-5.40) Hemoglobin 12.2 g/dL (12.0-15.5) Hematocrit 37.0 % (36.0-47.0) Mean Corpuscular Volume 87 fL (79-100) Mean Corpuscular Hemoglobin 29 pg (25-35) Mean Corpuscular Hemoglobin Concent 33 g/dL (31-37) Red Cell Distribution Width 13.7 % (11.5-14.5) Platelet Count 322 x10^3/uL (140-400) Neutrophils (%) (Auto) 87 % (31-73) Lymphocytes (%) (Auto) 7 % (24-48) Monocytes (%) (Auto) 4 % (0-9) Eosinophils (%) (Auto) 2 % (0-3) Basophils (%) (Auto) 0 % (0-3) Neutrophils # (Auto) 9.1 x10^3/uL (1.8-7.7) Lymphocytes # (Auto) 0.7 x10^3/uL (1.0-4.8) Monocytes # (Auto) 0.4 x10^3/uL (0.0-1.1) Eosinophils # (Auto) 0.2 x10^3/uL (0.0-0.7) Basophils # (Auto) 0.0 x10^3/uL (0.0-0.2) Sodium Level 135 mmol/L (136-145) Potassium Level 4.1 mmol/L (3.5-5.1) Chloride Level 100 mmol/L (98-107) Carbon Dioxide Level 28 mmol/L (21-32) Anion Gap 7 (6-14) Blood Urea Nitrogen 97 mg/dL (7-20) Creatinine 0.9 mg/dL (0.6-1.0) Estimated GFR (Cockcroft-Gault) 62.5 Glucose Level 127 mg/dL (70-99) Calcium Level 9.2 mg/dL (8.5-10.1) Laboratory Tests Test 06/16/20 08:20 06/16/20 11:35 06/16/20 12:20 06/16/20 17:57 Glucose (Fingerstick) 114 mg/dL (70-99) 152 mg/dL (70-99) 307 mg/dL (70-99) White Blood Count 12.0 x10^3/uL (4.0-11.0) Red Blood Count 4.53 x10^6/uL (3.50-5.40) Hemoglobin 13.3 g/dL (12.0-15.5) Hematocrit 40.3 % (36.0-47.0) Mean Corpuscular Volume 89 fL (79-100) Mean Corpuscular Hemoglobin 29 pg (25-35) Mean Corpuscular Hemoglobin Concent 33 g/dL (31-37) Red Cell Distribution Width 14.0 % (11.5-14.5) Platelet Count 331 x10^3/uL (140-400) Neutrophils (%) (Auto) 89 % (31-73) Lymphocytes (%) (Auto) 6 % (24-48) Monocytes (%) (Auto) 3 % (0-9) Eosinophils (%) (Auto) 2 % (0-3) Basophils (%) (Auto) 0 % (0-3) Neutrophils # (Auto) 10.7 x10^3/uL (1.8-7.7) Lymphocytes # (Auto) 0.7 x10^3/uL (1.0-4.8) Monocytes # (Auto) 0.4 x10^3/uL (0.0-1.1) Eosinophils # (Auto) 0.2 x10^3/uL (0.0-0.7) Basophils # (Auto) 0.0 x10^3/uL (0.0-0.2) Sodium Level 136 mmol/L (136-145) Potassium Level 4.4 mmol/L (3.5-5.1) Chloride Level 99 mmol/L (98-107) Carbon Dioxide Level 27 mmol/L (21-32) Anion Gap 10 (6-14) Blood Urea Nitrogen 84 mg/dL (7-20) Creatinine 1.0 mg/dL (0.6-1.0) Estimated GFR (Cockcroft-Gault) 55.3 Glucose Level 107 mg/dL (70-99) Calcium Level 9.7 mg/dL (8.5-10.1) Test 06/17/20 05:25 White Blood Count 10.5 x10^3/uL (4.0-11.0) Red Blood Count 4.25 x10^6/uL (3.50-5.40) Hemoglobin 12.2 g/dL (12.0-15.5) Hematocrit 37.0 % (36.0-47.0) Mean Corpuscular Volume 87 fL (79-100) Mean Corpuscular Hemoglobin 29 pg (25-35) Mean Corpuscular Hemoglobin Concent 33 g/dL (31-37) Red Cell Distribution Width 13.7 % (11.5-14.5) Platelet Count 322 x10^3/uL (140-400) Neutrophils (%) (Auto) 87 % (31-73) Lymphocytes (%) (Auto) 7 % (24-48) Monocytes (%) (Auto) 4 % (0-9) Eosinophils (%) (Auto) 2 % (0-3) Basophils (%) (Auto) 0 % (0-3) Neutrophils # (Auto) 9.1 x10^3/uL (1.8-7.7) Lymphocytes # (Auto) 0.7 x10^3/uL (1.0-4.8) Monocytes # (Auto) 0.4 x10^3/uL (0.0-1.1) Eosinophils # (Auto) 0.2 x10^3/uL (0.0-0.7) Basophils # (Auto) 0.0 x10^3/uL (0.0-0.2) Sodium Level 135 mmol/L (136-145) Potassium Level 4.1 mmol/L (3.5-5.1) Chloride Level 100 mmol/L (98-107) Carbon Dioxide Level 28 mmol/L (21-32) Anion Gap 7 (6-14) Blood Urea Nitrogen 97 mg/dL (7-20) Creatinine 0.9 mg/dL (0.6-1.0) Estimated GFR (Cockcroft-Gault) 62.5 Glucose Level 127 mg/dL (70-99) Calcium Level 9.2 mg/dL (8.5-10.1) Medications Active Scripts Medications Dose Route/Sig Max Daily Dose Days Date Category Sertraline Hcl 100 Mg Tablet 100 Mg PO DAILY 06/07/20 Reported Potassium Chloride 8 Meq Capsule.er 1 Cap PO DAILY 06/07/20 Reported Novolog Flexpen (Insulin Aspart) 100 Unit/1 Ml Insuln.pen 1 Unit SQ TIDAC 06/07/20 Reported Glipizide Er (Glipizide) 5 Mg Tab.er.24 1 Tab PO QAM 06/07/20 Reported Darifenacin ER (Darifenacin Hydrobromide) 7.5 Mg Tab.er.24h 1 Tab PO DAILY 06/07/20 Reported Losartan-Hctz 50-12.5 Mg Tab (Losartan/Hydrochlorothiazide) 1 Each Tablet 1 Tab PO DAILY 06/07/20 Reported Furosemide 40 Mg Tablet 1 Tab PO DAILY 06/07/20 Reported Prednisolone Acetate 5 Ml Drops.susp 2 Drop OU QID 06/07/20 Reported Gabapentin 300 Mg Capsule 600 Mg PO DAILY 06/07/20 Reported Novolog (Insulin Aspart) 100 Unit/1 Ml Cartridge 20 Unit SQ TIDAC 03/25/16 Reported Comments CTA chest IMPRESSION: 1. There is no CT evidence of pulmonary embolus. 2. There are patchy groundglass opacities throughout the lungs with interspersed normal lung. Relative sparing of the basilar left lower lobe and the lung apices. There is no confluent consolidation. Considerations include pneumonia including atypical viral pneumonia, nonspecific pneumonitis, or drug toxicity. Impression . IMPRESSION: 1. Acute hypoxic respiratory failure secondary to acute lung injury, acute respiratory distress syndrome due to COVID-19 pneumonia. 2. COVID-[address] chest with diffuse extensive bilateral infiltrates. No evidence of pulmonary embolism. This finding is consistent with COVID-19 pneumonia. 4. Underlying morbid obesity contributing to hypoxia. prob dante 5. No significant tobacco use. Plan . RECOMMENDATIONS: Continue current supplemental oxygen with BiPAP 90%, titrate as possible to keep sats above 92 % monitor closely for the need for intubation Follow chest x-ray and ABG, no changes today Follow infectious disease recommendations, currently off antibiotics Continue remdesivir for full 5-day course Continue steroids with taper Follow cultures, no growth to date Continue PPN for nutritional support PT/OT DVT/GI prophylaxis Discussed with RN and RT. Critical care time 0900-0930AM Pt. is FULL VAA JOHNSON MD Jun 17, 2020 08:14
--- NOTE | 2020-06-17 11:23 | PDOC ---
[facility] PROGRESS NOTE Date of Service DOS: DATE: 06/17/20 TIME: 11:22 Chief Complaint Chief Complaint Acute respiratory failure with Hypoxia - related to COVID 19 + acute bronchitis Pneumonia due to 2019 novel coronavirus Acute exacerbation of COPD with bronchitis Elevated d-dimer DM2 (A1c 7.7) Depression COPD HTN Stress incontinence Morbid obesity , BMI 48.6 Severe protein calorie malnutrition History of Present Illness History of Present Illness 06/17/20 No acute events overnight. Patient is currently saturating 94% on 90% FiO2 BiPAP. Chest X showing improvement. Pending ABG at this time. Patient's chart, labs, images were reviewed and discussed with RN 06/16/2020 Currently on BiPAP support of 90% FiO2. ABG showing hypoxemia. Patient currently appears to be slightly dyspneic. That is unchanged from yesterday.> 50% time spent in patient chart, labs, and imaging review and in discussion with RN and SW 06/15/2020 Patient currently on BiPAP support of 80% FiO2. Saturating 100%.> 50% time spent in patient chart, labs, and imaging review and in discussion with RN and SW A total of 35 minutes of critical care time was spent in reviewing chart, labs, and images. Discussed with RN and SW. 06/14/2020 Patient was moved to ICU due to worsening respiratory failure. Completed remdesivir. Currently on BiPAP FiO2 100%. Discussed with RN, she is afebrile, not improving. 06/12. still on resp support, very hypoxic, but comfortable no acute change, ID and pulm following, cont current not improving, prognosis worsens with lack of improvement over time 06/11, now on the BIPAP, has declined, ID and PULM following, cont other managemnt 06/10/2020 Patient seen and examined on the COVID-19 floor She is on BiPAP Started on remdesivir as well per pulmonary Discussed with case management Discussed with RN Chart reviewed She is extremely ill 06/09/2020 Patient seen and examined on the COVID-19 floor She is on 100% nonrebreather appears quite ill Discussed with case management Discussed with RN Chart reviewed Vitals/I&O Vitals/I&O: Vital Signs Date Time Temp Pulse Resp B/P (MAP) Pulse Ox O2 Delivery O2 Flow Rate FiO2 06/17/20 10:42 98.1 69 30 129/63 (85) 94 BiPAP/CPAP 98.1 06/17/20 08:00 15.0 I & O 06/16/20 06/16/20 06/17/20 15:00 23:00 07:00 Intake Total 360 ml 908.31 ml 940 ml Output Total 385 ml 475 ml 550 ml Balance -25 ml 433.31 ml 390 ml Physical Exam Physical Exam: GENERAL: Alert, oriented female, in mild distress. VITAL SIGNS: Stable, afebrile. HEENT: NAD. NECK: Supple, no JVP, no lymphadenopathy. LUNGS: Bibasilar crackles on BiPAP HEART: S1, S2 regular. ABDOMEN: Benign. EXTREMITIES: No edema, cyanosis. SKIN: Unremarkable. NEUROLOGIC: Flat affect very sleepy General: Alert, Cooperative, mild distress, moderate distress, Other (On BiPAP) Heart: Other (Tachycardic) Lungs: Crackles Abdomen: Normal bowel sounds, Soft, No tenderness, No hepatosplenomegaly, No masses Extremities: No clubbing, No cyanosis, No edema, Normal pulses, No tenderness/swelling Skin: No rashes, No breakdown, No significant lesion Labs Labs: Laboratory Tests Test 06/16/20 11:35 06/16/20 12:20 06/16/20 17:57 06/17/20 05:25 White Blood Count 12.0 x10^3/uL (4.0-11.0) 10.5 x10^3/uL (4.0-11.0) Red Blood Count 4.53 x10^6/uL (3.50-5.40) 4.25 x10^6/uL (3.50-5.40) Hemoglobin 13.3 g/dL (12.0-15.5) 12.2 g/dL (12.0-15.5) Hematocrit 40.3 % (36.0-47.0) 37.0 % (36.0-47.0) Mean Corpuscular Volume 89 fL (79-100) 87 fL (79-100) Mean Corpuscular Hemoglobin 29 pg (25-35) 29 pg (25-35) Mean Corpuscular Hemoglobin Concent 33 g/dL (31-37) 33 g/dL (31-37) Red Cell Distribution Width 14.0 % (11.5-14.5) 13.7 % (11.5-14.5) Platelet Count 331 x10^3/uL (140-400) 322 x10^3/uL (140-400) Neutrophils (%) (Auto) 89 % (31-73) 87 % (31-73) Lymphocytes (%) (Auto) 6 % (24-48) 7 % (24-48) Monocytes (%) (Auto) 3 % (0-9) 4 % (0-9) Eosinophils (%) (Auto) 2 % (0-3) 2 % (0-3) Basophils (%) (Auto) 0 % (0-3) 0 % (0-3) Neutrophils # (Auto) 10.7 x10^3/uL (1.8-7.7) 9.1 x10^3/uL (1.8-7.7) Lymphocytes # (Auto) 0.7 x10^3/uL (1.0-4.8) 0.7 x10^3/uL (1.0-4.8) Monocytes # (Auto) 0.4 x10^3/uL (0.0-1.1) 0.4 x10^3/uL (0.0-1.1) Eosinophils # (Auto) 0.2 x10^3/uL (0.0-0.7) 0.2 x10^3/uL (0.0-0.7) Basophils # (Auto) 0.0 x10^3/uL (0.0-0.2) 0.0 x10^3/uL (0.0-0.2) Sodium Level 136 mmol/L (136-145) 135 mmol/L (136-145) Potassium Level 4.4 mmol/L (3.5-5.1) 4.1 mmol/L (3.5-5.1) Chloride Level 99 mmol/L (98-107) 100 mmol/L (98-107) Carbon Dioxide Level 27 mmol/L (21-32) 28 mmol/L (21-32) Anion Gap 10 (6-14) 7 (6-14) Blood Urea Nitrogen 84 mg/dL (7-20) 97 mg/dL (7-20) Creatinine 1.0 mg/dL (0.6-1.0) 0.9 mg/dL (0.6-1.0) Estimated GFR (Cockcroft-Gault) 55.3 62.5 Glucose Level 107 mg/dL (70-99) 127 mg/dL (70-99) Calcium Level 9.7 mg/dL (8.5-10.1) 9.2 mg/dL (8.5-10.1) Glucose (Fingerstick) 152 mg/dL (70-99) 307 mg/dL (70-99) Assessment and Plan Assessmemt and Plan Problems Medical Problems: (1) Elevated d-dimer Status: Acute (2) Hypoxia Status: Acute (3) Pneumonia due to 2019 novel coronavirus Status: Acute Comment Review of Relevant I have reviewed the following items angel luis (where applicable) has been applied. Justifications for Admission Other Justification ALIREZA KINCAID MD Jun 17, 2020 11:23
[2020-06-17 13:16] LABS: MAGNESIUM 2.4 mg/dL (1.8-2.4)
--- NOTE | 2020-06-17 15:52 | NUR ---
SS following up with discharge planning. SS reviewed pt chart and discussed with pt RN. Pt is currently on BIPAP at 90%. COVID19 positive. Not stable. SS will continue to follow for discharge planning.
[2020-06-17] MEDS: INSULIN GLARGINE SYRINGE. SQ SCH (20:49)
[2020-06-18] VITALS (24 sets, daily range): BP systolic 106–147; BP diastolic 48–67
[2020-06-18] MEDS: ACETAMINOPHEN 325 MG TABLET. PO PRN (04:45)
[2020-06-18] MEDS: AMINO AC 3%/ELECTROLYTE/GLYCER 1,000 ML IV SCH ×2 (06:09→18:55)
[2020-06-18 07:04] LABS: BASO % 0 % (0-3); EOS # 0.2 x10^3/uL (0.0-0.7); EOS % 2 % (0-3); HEMATOCRIT 35.9 % (36.0-47.0); HEMOGLOBIN 11.9 g/dL (12.0-15.5); LYMPH # 0.8 x10^3/uL (1.0-4.8); LYMPH % 7 % (24-48); MEAN CORPUSCULAR HEMOGLOBIN 29 pg (25-35); MEAN CORPUSCULAR HGB CONC 33 g/dL (31-37); MEAN CORPUSCULAR VOLUME 88 fL (79-100); MONO # 0.4 x10^3/uL (0.0-1.1); MONO % 3 % (0-9); NEUT # 9.5 x10^3/uL (1.8-7.7); NEUT % 87 % (31-73); PLATELET COUNT 292 x10^3/uL (140-400); RED BLOOD COUNT 4.06 x10^6/uL (3.50-5.40)
[2020-06-18 07:12] LABS: CALCIUM 8.9 mg/dL (8.5-10.1); CREATININE 1.1 mg/dL (0.6-1.0); GFR 49.5; POTASSIUM 4.3 mmol/L (3.5-5.1)
[2020-06-18] MEDS: POTASSIUM CHLORIDE 10 MEQ TABLET.ER. PO SCH (08:00)
[2020-06-18] MEDS: INSULIN LISPRO 300 UNITS/3 ML VIAL. SQ SCH ×6 (08:00→17:28)
[2020-06-18] MEDS: glipiZIDE ER 2.5 MG TAB.ER.24 PO SCH (08:00)
--- NOTE | 2020-06-18 08:12 | PDOC ---
PULMONARY PROGRESS NOTES DATE: 06/18/20 TIME: 08:12 Subjective Patient remains on BiPAP, currently 100% Afebrile overnight No overnight concerns from nursing Vitals Vital Signs Date Time Temp Pulse Resp B/P (MAP) Pulse Ox O2 Delivery O2 Flow Rate FiO2 06/18/20 08:00 59 20 109/48 (68) 94 BiPAP/CPAP 06/18/20 04:00 98.1 98.1 06/17/20 16:00 15.0 Comments Patient seen during pandemic, visual exam performed Obesity On BiPAP Regular rate and rhythm no accessory muscle use Bilateral lower extremity edema trace Lungs: Clear Labs Laboratory Tests Test 06/16/20 08:20 06/16/20 11:35 06/16/20 12:20 06/16/20 17:57 Glucose (Fingerstick) 114 mg/dL (70-99) 152 mg/dL (70-99) 307 mg/dL (70-99) White Blood Count 12.0 x10^3/uL (4.0-11.0) Red Blood Count 4.53 x10^6/uL (3.50-5.40) Hemoglobin 13.3 g/dL (12.0-15.5) Hematocrit 40.3 % (36.0-47.0) Mean Corpuscular Volume 89 fL (79-100) Mean Corpuscular Hemoglobin 29 pg (25-35) Mean Corpuscular Hemoglobin Concent 33 g/dL (31-37) Red Cell Distribution Width 14.0 % (11.5-14.5) Platelet Count 331 x10^3/uL (140-400) Neutrophils (%) (Auto) 89 % (31-73) Lymphocytes (%) (Auto) 6 % (24-48) Monocytes (%) (Auto) 3 % (0-9) Eosinophils (%) (Auto) 2 % (0-3) Basophils (%) (Auto) 0 % (0-3) Neutrophils # (Auto) 10.7 x10^3/uL (1.8-7.7) Lymphocytes # (Auto) 0.7 x10^3/uL (1.0-4.8) Monocytes # (Auto) 0.4 x10^3/uL (0.0-1.1) Eosinophils # (Auto) 0.2 x10^3/uL (0.0-0.7) Basophils # (Auto) 0.0 x10^3/uL (0.0-0.2) Sodium Level 136 mmol/L (136-145) Potassium Level 4.4 mmol/L (3.5-5.1) Chloride Level 99 mmol/L (98-107) Carbon Dioxide Level 27 mmol/L (21-32) Anion Gap 10 (6-14) Blood Urea Nitrogen 84 mg/dL (7-20) Creatinine 1.0 mg/dL (0.6-1.0) Estimated GFR (Cockcroft-Gault) 55.3 Glucose Level 107 mg/dL (70-99) Calcium Level 9.7 mg/dL (8.5-10.1) Test 06/16/20 21:01 06/17/20 05:25 06/17/20 08:19 06/17/20 11:06 Glucose (Fingerstick) 266 mg/dL (70-99) 132 mg/dL (70-99) 152 mg/dL (70-99) White Blood Count 10.5 x10^3/uL (4.0-11.0) Red Blood Count 4.25 x10^6/uL (3.50-5.40) Hemoglobin 12.2 g/dL (12.0-15.5) Hematocrit 37.0 % (36.0-47.0) Mean Corpuscular Volume 87 fL (79-100) Mean Corpuscular Hemoglobin 29 pg (25-35) Mean Corpuscular Hemoglobin Concent 33 g/dL (31-37) Red Cell Distribution Width 13.7 % (11.5-14.5) Platelet Count 322 x10^3/uL (140-400) Neutrophils (%) (Auto) 87 % (31-73) Lymphocytes (%) (Auto) 7 % (24-48) Monocytes (%) (Auto) 4 % (0-9) Eosinophils (%) (Auto) 2 % (0-3) Basophils (%) (Auto) 0 % (0-3) Neutrophils # (Auto) 9.1 x10^3/uL (1.8-7.7) Lymphocytes # (Auto) 0.7 x10^3/uL (1.0-4.8) Monocytes # (Auto) 0.4 x10^3/uL (0.0-1.1) Eosinophils # (Auto) 0.2 x10^3/uL (0.0-0.7) Basophils # (Auto) 0.0 x10^3/uL (0.0-0.2) Sodium Level 135 mmol/L (136-145) Potassium Level 4.1 mmol/L (3.5-5.1) Chloride Level 100 mmol/L (98-107) Carbon Dioxide Level 28 mmol/L (21-32) Anion Gap 7 (6-14) Blood Urea Nitrogen 97 mg/dL (7-20) Creatinine 0.9 mg/dL (0.6-1.0) Estimated GFR (Cockcroft-Gault) 62.5 Glucose Level 127 mg/dL (70-99) Calcium Level 9.2 mg/dL (8.5-10.1) Magnesium Level 2.4 mg/dL (1.8-2.4) Ferritin 563 ng/mL (8-252) Lactate Dehydrogenase 445 U/L (81-234) Creatine Kinase 46 U/L (26-192) HR-Tam-G-Type Natriuretic Peptide 126 pg/mL (0-124) Test 06/17/20 11:55 06/17/20 17:16 06/17/20 20:58 06/18/20 06:55 D-Dimer (Sarah) 3.47 ug/mlFEU (0.00-0.50) Glucose (Fingerstick) 287 mg/dL (70-99) 266 mg/dL (70-99) White Blood Count 11.0 x10^3/uL (4.0-11.0) Red Blood Count 4.06 x10^6/uL (3.50-5.40) Hemoglobin 11.9 g/dL (12.0-15.5) Hematocrit 35.9 % (36.0-47.0) Mean Corpuscular Volume 88 fL (79-100) Mean Corpuscular Hemoglobin 29 pg (25-35) Mean Corpuscular Hemoglobin Concent 33 g/dL (31-37) Red Cell Distribution Width 14.0 % (11.5-14.5) Platelet Count 292 x10^3/uL (140-400) Neutrophils (%) (Auto) 87 % (31-73) Lymphocytes (%) (Auto) 7 % (24-48) Monocytes (%) (Auto) 3 % (0-9) Eosinophils (%) (Auto) 2 % (0-3) Basophils (%) (Auto) 0 % (0-3) Neutrophils # (Auto) 9.5 x10^3/uL (1.8-7.7) Lymphocytes # (Auto) 0.8 x10^3/uL (1.0-4.8) Monocytes # (Auto) 0.4 x10^3/uL (0.0-1.1) Eosinophils # (Auto) 0.2 x10^3/uL (0.0-0.7) Basophils # (Auto) 0.0 x10^3/uL (0.0-0.2) Sodium Level 136 mmol/L (136-145) Potassium Level 4.3 mmol/L (3.5-5.1) Chloride Level 100 mmol/L (98-107) Carbon Dioxide Level 28 mmol/L (21-32) Anion Gap 8 (6-14) Blood Urea Nitrogen 104 mg/dL (7-20) Creatinine 1.1 mg/dL (0.6-1.0) Estimated GFR (Cockcroft-Gault) 49.5 Glucose Level 168 mg/dL (70-99) Calcium Level 8.9 mg/dL (8.5-10.1) Laboratory Tests Test 06/17/20 08:19 06/17/20 11:06 06/17/20 11:55 06/17/20 17:16 Glucose (Fingerstick) 132 mg/dL (70-99) 152 mg/dL (70-99) 287 mg/dL (70-99) D-Dimer (Sarah) 3.47 ug/mlFEU (0.00-0.50) Test 06/17/20 20:58 06/18/20 06:55 Glucose (Fingerstick) 266 mg/dL (70-99) White Blood Count 11.0 x10^3/uL (4.0-11.0) Red Blood Count 4.06 x10^6/uL (3.50-5.40) Hemoglobin 11.9 g/dL (12.0-15.5) Hematocrit 35.9 % (36.0-47.0) Mean Corpuscular Volume 88 fL (79-100) Mean Corpuscular Hemoglobin 29 pg (25-35) Mean Corpuscular Hemoglobin Concent 33 g/dL (31-37) Red Cell Distribution Width 14.0 % (11.5-14.5) Platelet Count 292 x10^3/uL (140-400) Neutrophils (%) (Auto) 87 % (31-73) Lymphocytes (%) (Auto) 7 % (24-48) Monocytes (%) (Auto) 3 % (0-9) Eosinophils (%) (Auto) 2 % (0-3) Basophils (%) (Auto) 0 % (0-3) Neutrophils # (Auto) 9.5 x10^3/uL (1.8-7.7) Lymphocytes # (Auto) 0.8 x10^3/uL (1.0-4.8) Monocytes # (Auto) 0.4 x10^3/uL (0.0-1.1) Eosinophils # (Auto) 0.2 x10^3/uL (0.0-0.7) Basophils # (Auto) 0.0 x10^3/uL (0.0-0.2) Sodium Level 136 mmol/L (136-145) Potassium Level 4.3 mmol/L (3.5-5.1) Chloride Level 100 mmol/L (98-107) Carbon Dioxide Level 28 mmol/L (21-32) Anion Gap 8 (6-14) Blood Urea Nitrogen 104 mg/dL (7-20) Creatinine 1.1 mg/dL (0.6-1.0) Estimated GFR (Cockcroft-Gault) 49.5 Glucose Level 168 mg/dL (70-99) Calcium Level 8.9 mg/dL (8.5-10.1) Medications Active Scripts Medications Dose Route/Sig Max Daily Dose Days Date Category Sertraline Hcl 100 Mg Tablet 100 Mg PO DAILY 06/07/20 Reported Potassium Chloride 8 Meq Capsule.er 1 Cap PO DAILY 06/07/20 Reported Novolog Flexpen (Insulin Aspart) 100 Unit/1 Ml Insuln.pen 1 Unit SQ TIDAC 06/07/20 Reported Glipizide Er (Glipizide) 5 Mg Tab.er.24 1 Tab PO QAM 06/07/20 Reported Darifenacin ER (Darifenacin Hydrobromide) 7.5 Mg Tab.er.24h 1 Tab PO DAILY 06/07/20 Reported Losartan-Hctz 50-12.5 Mg Tab (Losartan/Hydrochlorothiazide) 1 Each Tablet 1 Tab PO DAILY 06/07/20 Reported Furosemide 40 Mg Tablet 1 Tab PO DAILY 06/07/20 Reported Prednisolone Acetate 5 Ml Drops.susp 2 Drop OU QID 06/07/20 Reported Gabapentin 300 Mg Capsule 600 Mg PO DAILY 06/07/20 Reported Novolog (Insulin Aspart) 100 Unit/1 Ml Cartridge 20 Unit SQ TIDAC 03/25/16 Reported Comments CTA chest IMPRESSION: 1. There is no CT evidence of pulmonary embolus. 2. There are patchy groundglass opacities throughout the lungs with interspersed normal lung. Relative sparing of the basilar left lower lobe and the lung apices. There is no confluent consolidation. Considerations include pneumonia including atypical viral pneumonia, nonspecific pneumonitis, or drug toxicity. Impression . IMPRESSION: 1. Acute hypoxic respiratory failure secondary to acute lung injury, acute respiratory distress syndrome due to COVID-19 pneumonia. 2. COVID-[address] chest with diffuse extensive bilateral infiltrates. No evidence of pulmonary embolism. This finding is consistent with COVID-19 pneumonia. 4. Underlying morbid obesity contributing to hypoxia. prob dante 5. No significant tobacco use. Plan . RECOMMENDATIONS: Continue current supplemental oxygen with BiPAP 100%, titrate as possible to keep sats above 92 % monitor closely for the need for intubation Follow chest x-ray and ABG, no changes today Follow infectious disease recommendations, currently off antibiotics Continue remdesivir for full 5-day course Continue steroids with taper Monitor renal function Continue PPN for nutritional support PT/OT DVT/GI prophylaxis Discussed with RN and RT. Critical care time 1000-1030AM Pt. is FULL AVA JOHNSON MD Jun 18, 2020 08:12
[2020-06-18] MEDS: NYSTATIN TOPICAL POWDER 15GM BOTTLE. TP SCH ×2 (09:00→21:00)
[2020-06-18] MEDS: DEXAMETHASONE SOD PHOS 4 MG/ML VIAL IVP SCH (09:20)
[2020-06-18] MEDS: ENOXAPARIN 40 MG/0.4 ML SYRINGE. SQ SCH ×2 (09:20→21:02)
[2020-06-18] MEDS: LOSARTAN POTASSIUM 50 MG TABLET. PO SCH (09:21)
[2020-06-18] MEDS: FUROSEMIDE 40 MG TABLET. PO SCH (09:21)
[2020-06-18] MEDS: GABAPENTIN 300 MG CAPSULE. PO SCH (09:21)
[2020-06-18] MEDS: ZINC SULFATE 220 MG CAPSULE. PO SCH (09:21)
[2020-06-18] MEDS: SERTRALINE 50 MG TABLET. PO SCH (09:21)
[2020-06-18] MEDS: ASCORBIC ACID 500 MG TABLET PO SCH (09:21)
[2020-06-18] MEDS: hydroCHLOROthiazide 12.5 MG CAPSULE PO SCH (09:21)
[2020-06-18] MEDS: OXYBUTYNIN CHLORIDE 5 MG TABLET PO SCH ×2 (09:21→21:01)
[2020-06-18] MEDS: DEXAMETHASONE 0.1% OPHTH SOLUTION 5ML BOTTLE. OU SCH ×4 (09:22→21:00)
--- NOTE | 2020-06-18 11:25 | PDOC ---
[facility] PROGRESS NOTE Date of Service DOS: DATE: 06/18/20 TIME: 11:23 Chief Complaint Chief Complaint Acute respiratory failure with Hypoxia - related to COVID 19 + acute bronchitis Pneumonia due to 2019 novel coronavirus Acute exacerbation of COPD with bronchitis Elevated d-dimer DM2 (A1c 7.7) Depression COPD HTN Stress incontinence Morbid obesity , BMI 48.6 Severe protein calorie malnutrition History of Present Illness History of Present Illness 06/18/2020 Some clinical improvement. No acute events overnight. Afebrile. Saturating 94% on 80% BiPAP.> 50% time spent in patient chart, labs, and imaging review and in discussion with RN and SW 06/17/20 No acute events overnight. Patient is currently saturating 94% on 90% FiO2 BiPAP. Chest X showing improvement. Pending ABG at this time. Patient's chart, labs, images were reviewed and discussed with RN 06/16/2020 Currently on BiPAP support of 90% FiO2. ABG showing hypoxemia. Patient currently appears to be slightly dyspneic. That is unchanged from yesterday.> 50% time spent in patient chart, labs, and imaging review and in discussion with RN and SW 06/15/2020 Patient currently on BiPAP support of 80% FiO2. Saturating 100%.> 50% time spent in patient chart, labs, and imaging review and in discussion with RN and SW A total of 35 minutes of critical care time was spent in reviewing chart, labs, and images. Discussed with RN and SW. 06/14/2020 Patient was moved to ICU due to worsening respiratory failure. Completed remdesivir. Currently on BiPAP FiO2 100%. Discussed with RN, she is afebrile, not improving. 06/12. still on resp support, very hypoxic, but comfortable no acute change, ID and pulm following, cont current not improving, prognosis worsens with lack of improvement over time 06/11, now on the BIPAP, has declined, ID and PULM following, cont other managemnt 06/10/2020 Patient seen and examined on the COVID-19 floor She is on BiPAP Started on remdesivir as well per pulmonary Discussed with case management Discussed with RN Chart reviewed She is extremely ill 06/09/2020 Patient seen and examined on the COVID-19 floor She is on 100% nonrebreather appears quite ill Discussed with case management Discussed with RN Chart reviewed Vitals/I&O Vitals/I&O: Vital Signs Date Time Temp Pulse Resp B/P (MAP) Pulse Ox O2 Delivery O2 Flow Rate FiO2 06/18/20 10:00 57 21 117/54 (75) 96 BiPAP/CPAP 06/18/20 09:00 98.0 98.0 06/17/20 16:00 15.0 I & O 06/17/20 06/17/20 06/18/20 15:00 23:00 07:00 Intake Total 195 ml 960 ml Output Total 750 ml 1100 ml 435 ml Balance -555 ml -1100 ml 525 ml Physical Exam Physical Exam: GENERAL: Alert, oriented female, in mild distress. VITAL SIGNS: Stable, afebrile. HEENT: NAD. NECK: Supple, no JVP, no lymphadenopathy. LUNGS: Bibasilar crackles on BiPAP HEART: S1, S2 regular. ABDOMEN: Benign. EXTREMITIES: No edema, cyanosis. SKIN: Unremarkable. NEUROLOGIC: Flat affect very sleepy General: Alert, Cooperative, mild distress, moderate distress, Other (On BiPAP) Heart: Other (Tachycardic) Lungs: Clear Abdomen: Normal bowel sounds, Soft, No tenderness, No hepatosplenomegaly, No masses Extremities: No clubbing, No cyanosis, No edema, Normal pulses, No tenderness/swelling Skin: No rashes, No breakdown, No significant lesion Labs Labs: Laboratory Tests Test 06/17/20 11:55 06/17/20 17:16 06/17/20 20:58 06/18/20 06:55 D-Dimer (Sarah) 3.47 ug/mlFEU (0.00-0.50) Glucose (Fingerstick) 287 mg/dL (70-99) 266 mg/dL (70-99) White Blood Count 11.0 x10^3/uL (4.0-11.0) Red Blood Count 4.06 x10^6/uL (3.50-5.40) Hemoglobin 11.9 g/dL (12.0-15.5) Hematocrit 35.9 % (36.0-47.0) Mean Corpuscular Volume 88 fL (79-100) Mean Corpuscular Hemoglobin 29 pg (25-35) Mean Corpuscular Hemoglobin Concent 33 g/dL (31-37) Red Cell Distribution Width 14.0 % (11.5-14.5) Platelet Count 292 x10^3/uL (140-400) Neutrophils (%) (Auto) 87 % (31-73) Lymphocytes (%) (Auto) 7 % (24-48) Monocytes (%) (Auto) 3 % (0-9) Eosinophils (%) (Auto) 2 % (0-3) Basophils (%) (Auto) 0 % (0-3) Neutrophils # (Auto) 9.5 x10^3/uL (1.8-7.7) Lymphocytes # (Auto) 0.8 x10^3/uL (1.0-4.8) Monocytes # (Auto) 0.4 x10^3/uL (0.0-1.1) Eosinophils # (Auto) 0.2 x10^3/uL (0.0-0.7) Basophils # (Auto) 0.0 x10^3/uL (0.0-0.2) Sodium Level 136 mmol/L (136-145) Potassium Level 4.3 mmol/L (3.5-5.1) Chloride Level 100 mmol/L (98-107) Carbon Dioxide Level 28 mmol/L (21-32) Anion Gap 8 (6-14) Blood Urea Nitrogen 104 mg/dL (7-20) Creatinine 1.1 mg/dL (0.6-1.0) Estimated GFR (Cockcroft-Gault) 49.5 Glucose Level 168 mg/dL (70-99) Calcium Level 8.9 mg/dL (8.5-10.1) Assessment and Plan Assessmemt and Plan Problems Medical Problems: (1) Elevated d-dimer Status: Acute (2) Hypoxia Status: Acute (3) Pneumonia due to 2019 novel coronavirus Status: Acute Comment Review of Relevant I have reviewed the following items angel luis (where applicable) has been applied. Justifications for Admission Other Justification ALIREZA KINCAID MD Jun 18, 2020 11:25
--- NOTE | 2020-06-18 15:08 | NUR ---
SS following up with discharge planning. SS reviewed pt chart and discussed with pt RN. Pt is currently on BIPAP at 80%. COVID19 positive. Not stable. SS will continue to follow for discharge planning.
--- NOTE | 2020-06-18 18:40 | NUR ---
Patient able to tolerate NRB at 15L for 40 minutes without exertion. Patient returned to bipap after SpO2 began dropping when assisted with bedpan. Addendum: 06/19/20 at 1828 by MAMIE FARIA RN Spo2 94% on NRB without exertion during that time.
[2020-06-18] MEDS: INSULIN GLARGINE SYRINGE. SQ SCH (21:16)
[2020-06-19] VITALS (20 sets, daily range): BP systolic 100–147; BP diastolic 46–65
[2020-06-19] MEDS: ACETAMINOPHEN 325 MG TABLET. PO PRN (03:08)
[2020-06-19 06:26] LABS: BASO % 0 % (0-3); EOS # 0.2 x10^3/uL (0.0-0.7); EOS % 1 % (0-3); HEMATOCRIT 34.4 % (36.0-47.0); HEMOGLOBIN 11.9 g/dL (12.0-15.5); LYMPH # 0.7 x10^3/uL (1.0-4.8); LYMPH % 5 % (24-48); MEAN CORPUSCULAR HEMOGLOBIN 30 pg (25-35); MEAN CORPUSCULAR HGB CONC 35 g/dL (31-37); MEAN CORPUSCULAR VOLUME 88 fL (79-100); MONO # 0.6 x10^3/uL (0.0-1.1); MONO % 5 % (0-9); NEUT # 12.2 x10^3/uL (1.8-7.7); NEUT % 89 % (31-73); PLATELET COUNT 275 x10^3/uL (140-400); RED BLOOD COUNT 3.92 x10^6/uL (3.50-5.40); RED CELL DISTRIBUTION WIDTH 13.9 % (11.5-14.5); WHITE BLOOD COUNT 13.7 x10^3/uL (4.0-11.0)
[2020-06-19 06:28] LABS: CALCIUM 9.3 mg/dL (8.5-10.1); CREATININE 1.1 mg/dL (0.6-1.0); GFR 49.5
[2020-06-19] MEDS: AMINO AC 3%/ELECTROLYTE/GLYCER 1,000 ML IV SCH ×2 (06:58→19:40)
[2020-06-19] MEDS: INSULIN LISPRO 300 UNITS/3 ML VIAL. SQ SCH ×6 (08:00→18:06)
[2020-06-19] MEDS: MULTIVITAMIN with MINERAL TABLET. PO SCH (08:39)
[2020-06-19] MEDS: FUROSEMIDE 40 MG TABLET. PO SCH (08:40)
[2020-06-19] MEDS: ZINC SULFATE 220 MG CAPSULE. PO SCH (08:40)
[2020-06-19] MEDS: OXYBUTYNIN CHLORIDE 5 MG TABLET PO SCH ×2 (08:40→20:32)
[2020-06-19] MEDS: GABAPENTIN 300 MG CAPSULE. PO SCH (08:40)
[2020-06-19] MEDS: SERTRALINE 50 MG TABLET. PO SCH (08:40)
[2020-06-19] MEDS: POTASSIUM CHLORIDE 10 MEQ TABLET.ER. PO SCH (08:40)
[2020-06-19] MEDS: LOSARTAN POTASSIUM 50 MG TABLET. PO SCH (08:40)
[2020-06-19] MEDS: DEXAMETHASONE 0.1% OPHTH SOLUTION 5ML BOTTLE. OU SCH ×4 (08:41→21:00)
[2020-06-19] MEDS: DEXAMETHASONE SOD PHOS 4 MG/ML VIAL IVP SCH (08:41)
[2020-06-19] MEDS: ENOXAPARIN 40 MG/0.4 ML SYRINGE. SQ SCH ×2 (08:41→20:32)
[2020-06-19] MEDS: hydroCHLOROthiazide 12.5 MG CAPSULE PO SCH (08:41)
[2020-06-19] MEDS: NYSTATIN TOPICAL POWDER 15GM BOTTLE. TP SCH ×2 (08:41→21:00)
[2020-06-19] MEDS: glipiZIDE ER 2.5 MG TAB.ER.24 PO SCH (08:47)
[2020-06-19] MEDS: ASCORBIC ACID 500 MG TABLET PO SCH (08:48)
--- NOTE | 2020-06-19 09:30 | PDOC ---
PULMONARY PROGRESS NOTES DATE: 06/19/20 TIME: 09:30 Subjective Patient remains on BiPAP, 100% Afebrile overnight no clinical improvement No overnight concerns from nursing Vitals Vital Signs Date Time Temp Pulse Resp B/P (MAP) Pulse Ox O2 Delivery O2 Flow Rate FiO2 06/19/20 08:40 60 135/60 06/19/20 08:00 24 92 BiPAP/CPAP 06/19/20 07:00 97.9 97.9 06/18/20 20:00 15.0 Comments Patient seen during pandemic, visual exam performed Obesity On BiPAP Regular rate and rhythm no accessory muscle use Bilateral lower extremity edema trace Lungs: Clear Labs Laboratory Tests Test 06/17/20 11:06 06/17/20 11:55 06/17/20 17:16 06/17/20 20:58 Glucose (Fingerstick) 152 mg/dL (70-99) 287 mg/dL (70-99) 266 mg/dL (70-99) D-Dimer (Sarah) 3.47 ug/mlFEU (0.00-0.50) Test 06/18/20 06:55 06/18/20 17:18 06/18/20 21:06 06/19/20 06:10 White Blood Count 11.0 x10^3/uL (4.0-11.0) 13.7 x10^3/uL (4.0-11.0) Red Blood Count 4.06 x10^6/uL (3.50-5.40) 3.92 x10^6/uL (3.50-5.40) Hemoglobin 11.9 g/dL (12.0-15.5) 11.9 g/dL (12.0-15.5) Hematocrit 35.9 % (36.0-47.0) 34.4 % (36.0-47.0) Mean Corpuscular Volume 88 fL (79-100) 88 fL (79-100) Mean Corpuscular Hemoglobin 29 pg (25-35) 30 pg (25-35) Mean Corpuscular Hemoglobin Concent 33 g/dL (31-37) 35 g/dL (31-37) Red Cell Distribution Width 14.0 % (11.5-14.5) 13.9 % (11.5-14.5) Platelet Count 292 x10^3/uL (140-400) 275 x10^3/uL (140-400) Neutrophils (%) (Auto) 87 % (31-73) 89 % (31-73) Lymphocytes (%) (Auto) 7 % (24-48) 5 % (24-48) Monocytes (%) (Auto) 3 % (0-9) 5 % (0-9) Eosinophils (%) (Auto) 2 % (0-3) 1 % (0-3) Basophils (%) (Auto) 0 % (0-3) 0 % (0-3) Neutrophils # (Auto) 9.5 x10^3/uL (1.8-7.7) 12.2 x10^3/uL (1.8-7.7) Lymphocytes # (Auto) 0.8 x10^3/uL (1.0-4.8) 0.7 x10^3/uL (1.0-4.8) Monocytes # (Auto) 0.4 x10^3/uL (0.0-1.1) 0.6 x10^3/uL (0.0-1.1) Eosinophils # (Auto) 0.2 x10^3/uL (0.0-0.7) 0.2 x10^3/uL (0.0-0.7) Basophils # (Auto) 0.0 x10^3/uL (0.0-0.2) 0.0 x10^3/uL (0.0-0.2) Sodium Level 136 mmol/L (136-145) 136 mmol/L (136-145) Potassium Level 4.3 mmol/L (3.5-5.1) 4.0 mmol/L (3.5-5.1) Chloride Level 100 mmol/L (98-107) 100 mmol/L (98-107) Carbon Dioxide Level 28 mmol/L (21-32) 30 mmol/L (21-32) Anion Gap 8 (6-14) 6 (6-14) Blood Urea Nitrogen 104 mg/dL (7-20) 102 mg/dL (7-20) Creatinine 1.1 mg/dL (0.6-1.0) 1.1 mg/dL (0.6-1.0) Estimated GFR (Cockcroft-Gault) 49.5 49.5 Glucose Level 168 mg/dL (70-99) 178 mg/dL (70-99) Calcium Level 8.9 mg/dL (8.5-10.1) 9.3 mg/dL (8.5-10.1) Glucose (Fingerstick) 364 mg/dL (70-99) 341 mg/dL (70-99) Laboratory Tests Test 06/18/20 17:18 06/18/20 21:06 06/19/20 06:10 Glucose (Fingerstick) 364 mg/dL (70-99) 341 mg/dL (70-99) White Blood Count 13.7 x10^3/uL (4.0-11.0) Red Blood Count 3.92 x10^6/uL (3.50-5.40) Hemoglobin 11.9 g/dL (12.0-15.5) Hematocrit 34.4 % (36.0-47.0) Mean Corpuscular Volume 88 fL (79-100) Mean Corpuscular Hemoglobin 30 pg (25-35) Mean Corpuscular Hemoglobin Concent 35 g/dL (31-37) Red Cell Distribution Width 13.9 % (11.5-14.5) Platelet Count 275 x10^3/uL (140-400) Neutrophils (%) (Auto) 89 % (31-73) Lymphocytes (%) (Auto) 5 % (24-48) Monocytes (%) (Auto) 5 % (0-9) Eosinophils (%) (Auto) 1 % (0-3) Basophils (%) (Auto) 0 % (0-3) Neutrophils # (Auto) 12.2 x10^3/uL (1.8-7.7) Lymphocytes # (Auto) 0.7 x10^3/uL (1.0-4.8) Monocytes # (Auto) 0.6 x10^3/uL (0.0-1.1) Eosinophils # (Auto) 0.2 x10^3/uL (0.0-0.7) Basophils # (Auto) 0.0 x10^3/uL (0.0-0.2) Sodium Level 136 mmol/L (136-145) Potassium Level 4.0 mmol/L (3.5-5.1) Chloride Level 100 mmol/L (98-107) Carbon Dioxide Level 30 mmol/L (21-32) Anion Gap 6 (6-14) Blood Urea Nitrogen 102 mg/dL (7-20) Creatinine 1.1 mg/dL (0.6-1.0) Estimated GFR (Cockcroft-Gault) 49.5 Glucose Level 178 mg/dL (70-99) Calcium Level 9.3 mg/dL (8.5-10.1) Medications Active Scripts Medications Dose Route/Sig Max Daily Dose Days Date Category Sertraline Hcl 100 Mg Tablet 100 Mg PO DAILY 06/07/20 Reported Potassium Chloride 8 Meq Capsule.er 1 Cap PO DAILY 06/07/20 Reported Novolog Flexpen (Insulin Aspart) 100 Unit/1 Ml Insuln.pen 1 Unit SQ TIDAC 06/07/20 Reported Glipizide Er (Glipizide) 5 Mg Tab.er.24 1 Tab PO QAM 06/07/20 Reported Darifenacin ER (Darifenacin Hydrobromide) 7.5 Mg Tab.er.24h 1 Tab PO DAILY 06/07/20 Reported Losartan-Hctz 50-12.5 Mg Tab (Losartan/Hydrochlorothiazide) 1 Each Tablet 1 Tab PO DAILY 06/07/20 Reported Furosemide 40 Mg Tablet 1 Tab PO DAILY 06/07/20 Reported Prednisolone Acetate 5 Ml Drops.susp 2 Drop OU QID 06/07/20 Reported Gabapentin 300 Mg Capsule 600 Mg PO DAILY 06/07/20 Reported Novolog (Insulin Aspart) 100 Unit/1 Ml Cartridge 20 Unit SQ TIDAC 03/25/16 Reported Comments CTA chest IMPRESSION: 1. There is no CT evidence of pulmonary embolus. 2. There are patchy groundglass opacities throughout the lungs with interspersed normal lung. Relative sparing of the basilar left lower lobe and the lung apices. There is no confluent consolidation. Considerations include pneumonia including atypical viral pneumonia, nonspecific pneumonitis, or drug toxicity. Impression . IMPRESSION: 1. Acute hypoxic respiratory failure secondary to acute lung injury, acute respiratory distress syndrome due to COVID-19 pneumonia. 2. COVID-[address] chest with diffuse extensive bilateral infiltrates. No evidence of pulmonary embolism. This finding is consistent with COVID-19 pneumonia. 4. Underlying morbid obesity contributing to hypoxia. prob dante 5. No significant tobacco use. Plan . RECOMMENDATIONS: Continue current supplemental oxygen with BiPAP 100%, titrate as possible to keep sats above 92 % monitor closely for the need for intubation Follow chest x-ray and ABG, no changes today Follow infectious disease recommendations, currently off antibiotics Continue remdesivir for full 5-day course Continue steroids with taper Monitor renal function Continue PPN for nutritional support PT/OT DVT/GI prophylaxis No clinical improvement Discussed with RN and RT. Critical care time 0900-0930AM Pt. is FULL AVA JOHNSON MD Jun 19, 2020 09:30
--- NOTE | 2020-06-19 10:58 | PDOC ---
[facility] [facility] PROGRESS NOTE Date of Service DOS: DATE: 06/19/20 TIME: 10:58 Chief Complaint Chief Complaint Acute respiratory failure with Hypoxia - related to COVID 19 + acute bronchitis Pneumonia due to 2019 novel coronavirus Acute exacerbation of COPD with bronchitis Elevated d-dimer DM2 (A1c 7.7) Depression COPD HTN Stress incontinence Morbid obesity , BMI 48.6 Severe protein calorie malnutrition History of Present Illness History of Present Illness 06/19/2020 Afebrile no acute events overnight. Patient seen and examined bedside. Patient saturating 93% on BiPAP at 100%.> 50% time spent in patient chart, labs, and imaging review and in discussion with RN and SW 06/18/2020 Some clinical improvement. No acute events overnight. Afebrile. Saturating 94% on 80% BiPAP.> 50% time spent in patient chart, labs, and imaging review and in discussion with RN and SW 06/17/20 No acute events overnight. Patient is currently saturating 94% on 90% FiO2 BiPAP. Chest X showing improvement. Pending ABG at this time. Patient's c pederson, labs, images were reviewed and discussed with RN 06/16/2020 Currently on BiPAP support of 90% FiO2. ABG showing hypoxemia. Patient currently appears to be slightly dyspneic. That is unchanged from yesterday.> 50% time spent in patient chart, labs, and imaging review and in discussion with RN and SW 06/15/2020 Patient currently on BiPAP support of 80% FiO2. Saturating 100%.> 50% time spent in patient chart, labs, and imaging review and in discussion with RN and SW A total of 35 minutes of critical care time was spent in reviewing chart, labs, and images. Discussed with RN and SW. 06/14/2020 Patient was moved to ICU due to worsening respiratory failure. Completed remdesivir. Currently on BiPAP FiO2 100%. Discussed with RN, she is afebrile, not improving. 06/12. still on resp support, very hypoxic, but comfortable no acute change, ID and pulm following, cont current not improving, prognosis worsens with lack of improvement over time 06/11, now on the BIPAP, has declined, ID and PULM following, cont other managemnt 06/10/2020 Patient seen and examined on the COVID-19 floor She is on BiPAP Started on remdesivir as well per pulmonary Discussed with case management Discussed with RN Chart reviewed She is extremely ill 06/09/2020 Patient seen and examined on the COVID-19 floor She is on 100% nonrebreather appears quite ill Discussed with case management Discussed with RN Chart reviewed Vitals/I&O Vitals/I&O: Vital Signs Date Time Temp Pulse Resp B/P (MAP) Pulse Ox O2 Delivery O2 Flow Rate FiO2 06/19/20 10:00 62 22 130/55 (80) 94 BiPAP/CPAP 06/19/20 07:00 97.9 97.9 06/18/20 20:00 15.0 I & O 06/18/20 06/18/20 06/19/20 15:00 23:00 07:00 Intake Total 240 ml 460 ml Output Total 585 ml 650 ml 350 ml Balance -345 ml -190 ml -350 ml Physical Exam Physical Exam: GENERAL: Alert, oriented female, in mild distress. VITAL SIGNS: Stable, afebrile. HEENT: NAD. NECK: Supple, no JVP, no lymphadenopathy. LUNGS: Bibasilar crackles on BiPAP HEART: S1, S2 regular. ABDOMEN: Benign. EXTREMITIES: No edema, cyanosis. SKIN: Unremarkable. NEUROLOGIC: Flat affect very sleepy General: Alert, Cooperative, mild distress, moderate distress, Other (On BiPAP) Heart: Other (Tachycardic) Lungs: Clear Abdomen: Normal bowel sounds, Soft, No tenderness, No hepatosplenomegaly, No m asses Extremities: No clubbing, No cyanosis, No edema, Normal pulses, No tenderness/swelling Skin: No rashes, No breakdown, No significant lesion Labs Labs: Laboratory Tests Test 06/18/20 17:18 06/18/20 21:06 06/19/20 06:10 Glucose (Fingerstick) 364 mg/dL (70-99) 341 mg/dL (70-99) White Blood Count 13.7 x10^3/uL (4.0-11.0) Red Blood Count 3.92 x10^6/uL (3.50-5.40) Hemoglobin 11.9 g/dL (12.0-15.5) Hematocrit 34.4 % (36.0-47.0) Mean Corpuscular Volume 88 fL (79-100) Mean Corpuscular Hemoglobin 30 pg (25-35) Mean Corpuscular Hemoglobin Concent 35 g/dL (31-37) Red Cell Distribution Width 13.9 % (11.5-14.5) Platelet Count 275 x10^3/uL (140-400) Neutrophils (%) (Auto) 89 % (31-73) Lymphocytes (%) (Auto) 5 % (24-48) Monocytes (%) (Auto) 5 % (0-9) Eosinophils (%) (Auto) 1 % (0-3) Basophils (%) (Auto) 0 % (0-3) Neutrophils # (Auto) 12.2 x10^3/uL (1.8-7.7) Lymphocytes # (Auto) 0.7 x10^3/uL (1.0-4.8) Monocytes # (Auto) 0.6 x10^3/uL (0.0-1.1) Eosinophils # (Auto) 0.2 x10^3/uL (0.0-0.7) Basophils # (Auto) 0.0 x10^3/uL (0.0-0.2) Sodium Level 136 mmol/L (136-145) Potassium Level 4.0 mmol/L (3.5-5.1) Chloride Level 100 mmol/L (98-107) Carbon Dioxide Level 30 mmol/L (21-32) Anion Gap 6 (6-14) Blood Urea Nitrogen 102 mg/dL (7-20) Creatinine 1.1 mg/dL (0.6-1.0) Estimated GFR (Cockcroft-Gault) 49.5 Glucose Level 178 mg/dL (70-99) Calcium Level 9.3 mg/dL (8.5-10.1) Assessment and Plan Assessmemt and Plan Problems Medical Problems: (1) Elevated d-dimer Status: Acute (2) Hypoxia Status: Acute (3) Pneumonia due to 2019 novel coronavirus Status: Acute Comment Review of Relevant I have reviewed the following items angel luis (where applicable) has been applied. Medications: Current Medications Medications (Trade) Dose Ordered Sig/K[facility] Route PRN Reason Start Time Stop Time Status Last Admin Dose Admin Multivitamins (Thera M Plus) 1 tab DAILY PO 06/19/20 09:00 06/19/20 08:39 Justifications for Admission Other Justification ALIREZA KINCAID MD Jun 19, 2020 10:58
--- NOTE | 2020-06-19 14:42 | NUR ---
SS following up with discharge planning. SS reviewed pt chart and discussed with pt RN. Pt is currently on BIPAP at 100%. COVID19 positive. Not stable. SS will continue to follow for discharge planning.
[2020-06-19 17:41] LABS: MAGNESIUM 2.4 mg/dL (1.8-2.4)
--- NOTE | 2020-06-19 19:06 | NUR ---
Patient placed on NRB at 15L [id number]. SpO2 maintained 87-90% at this time.
[2020-06-19] MEDS: INSULIN GLARGINE SYRINGE. SQ SCH (20:32)
[2020-06-19] MEDS: MORPHINE SULFATE 2 MG/ML VIAL. IV PRN (21:20)
[2020-06-20] VITALS (24 sets, daily range): BP systolic 100–149; BP diastolic 41–67
[2020-06-20 05:56] LABS: BASO % 0 % (0-3); EOS # 0.1 x10^3/uL (0.0-0.7); EOS % 1 % (0-3); HEMATOCRIT 35.5 % (36.0-47.0); HEMOGLOBIN 11.6 g/dL (12.0-15.5); LYMPH # 0.8 x10^3/uL (1.0-4.8); LYMPH % 7 % (24-48); MEAN CORPUSCULAR HEMOGLOBIN 29 pg (25-35); MEAN CORPUSCULAR HGB CONC 33 g/dL (31-37); MEAN CORPUSCULAR VOLUME 88 fL (79-100); MONO # 0.6 x10^3/uL (0.0-1.1); MONO % 5 % (0-9); NEUT % 87 % (31-73); PLATELET COUNT 268 x10^3/uL (140-400); RED BLOOD COUNT 4.05 x10^6/uL (3.50-5.40); RED CELL DISTRIBUTION WIDTH 13.5 % (11.5-14.5); WHITE BLOOD COUNT 12.7 x10^3/uL (4.0-11.0)
[2020-06-20 06:03] LABS: CALCIUM 9.3 mg/dL (8.5-10.1); GFR 55.3; POTASSIUM 4.4 mmol/L (3.5-5.1)
[2020-06-20] MEDS: POTASSIUM CHLORIDE 10 MEQ TABLET.ER. PO SCH ×2 (08:00→08:24)
[2020-06-20] MEDS: INSULIN LISPRO 300 UNITS/3 ML VIAL. SQ SCH ×6 (08:00→17:02)
[2020-06-20] MEDS: glipiZIDE ER 2.5 MG TAB.ER.24 PO SCH ×2 (08:22→09:38)
[2020-06-20] MEDS: DEXAMETHASONE SOD PHOS 4 MG/ML VIAL IVP SCH (08:22)
[2020-06-20] MEDS: LOSARTAN POTASSIUM 50 MG TABLET. PO SCH ×2 (08:23→09:39)
[2020-06-20] MEDS: SERTRALINE 50 MG TABLET. PO SCH ×2 (08:23→09:42)
[2020-06-20] MEDS: GABAPENTIN 300 MG CAPSULE. PO SCH ×2 (08:23→09:41)
[2020-06-20] MEDS: FUROSEMIDE 40 MG TABLET. PO SCH ×2 (08:24→09:40)
[2020-06-20] MEDS: hydroCHLOROthiazide 12.5 MG CAPSULE PO SCH ×2 (08:24→09:40)
[2020-06-20] MEDS: ASCORBIC ACID 500 MG TABLET PO SCH ×2 (08:24→09:42)
[2020-06-20] MEDS: OXYBUTYNIN CHLORIDE 5 MG TABLET PO SCH ×3 (08:24→21:09)
[2020-06-20] MEDS: ENOXAPARIN 40 MG/0.4 ML SYRINGE. SQ SCH ×2 (08:24→21:09)
[2020-06-20] MEDS: DEXAMETHASONE 0.1% OPHTH SOLUTION 5ML BOTTLE. OU SCH ×4 (08:25→21:15)
[2020-06-20] MEDS: NYSTATIN TOPICAL POWDER 15GM BOTTLE. TP SCH ×2 (08:25→21:14)
[2020-06-20] MEDS: ZINC SULFATE 220 MG CAPSULE. PO SCH ×2 (08:25→09:42)
[2020-06-20] MEDS: AMINO AC 3%/ELECTROLYTE/GLYCER 1,000 ML IV SCH ×2 (08:31→21:09)
[2020-06-20 09:24] LABS: BASE EXCESS ABG -2 mmol/L (-3-3); HCO3 ABG 23 mmol/L (21-28); PCO2 ABG 38 mmHg (35-46); PO2 ABG 63 mmHg (65-108); SAT O2 ABG 92 % (92-99)
[2020-06-20 09:25] LABS: FIO2 ABG 100
[2020-06-20] MEDS: MULTIVITAMIN with MINERAL TABLET. PO SCH (09:33)
--- NOTE | 2020-06-20 10:08 | PDOC ---
[facility] PROGRESS NOTE Date of Service DOS: DATE: 06/20/20 TIME: 10:06 Chief Complaint Chief Complaint Acute respiratory failure with Hypoxia - related to COVID 19 + acute bronchitis Pneumonia due to 2019 novel coronavirus Acute exacerbation of COPD with bronchitis Elevated d-dimer DM2 (A1c 7.7) Depression COPD HTN Stress incontinence Morbid obesity , BMI 48.6 Severe protein calorie malnutrition History of Present Illness History of Present Illness 06/20/2020 No acute events overnight. Patient is saturating 84% on BiPAP at 100%. ABG shows pH 7.39, PCO2 38, PO2 63, HCO3 23. No clinical improvement. Tolerating BiPAP and appears to be in minimal distress. Unable to remove as patient will desaturate immediately.> 50% time spent in patient chart, labs, and imaging re view and in discussion with RN and SW 06/19/2020 Afebrile no acute events overnight. Patient seen and examined bedside. Patient saturating 93% on BiPAP at 100%.> 50% time spent in patient chart, labs, and imaging review and in discussion with RN and SW 06/18/2020 Some clinical improvement. No acute events overnight. Afebrile. Saturating 94% on 80% BiPAP.> 50% time spent in patient chart, labs, and imaging review and in discussion with RN and SW 06/17/20 No acute events overnight. Patient is currently saturating 94% on 90% FiO2 BiPAP. Chest X showing improvement. Pending ABG at this time. Patient's chart, labs, images were reviewed and discussed with RN 06/16/2020 Currently on BiPAP support of 90% FiO2. ABG showing hypoxemia. Patient currently appears to be slightly dyspneic. That is unchanged from yesterday.> 50% time spent in patient chart, labs, and imaging review and in discussion with RN and SW 06/15/2020 Patient currently on BiPAP support of 80% FiO2. Saturating 100%.> 50% time spent in patient chart, labs, and imaging review and in discussion with RN and SW A total of 35 minutes of critical care time was spent in reviewing chart, labs, and images. Discussed with RN and SW. 06/14/2020 Patient was moved to ICU due to worsening respiratory failure. Completed remdesivir. Currently on BiPAP FiO2 100%. Discussed with RN, she is afebrile, not improving. 06/12. still on resp support, very hypoxic, but comfortable no acute change, ID and pulm following, cont current not improving, prognosis worsens with lack of improvement over time 06/11, now on the BIPAP, has declined, ID and PULM following, cont other managemnt 06/10/2020 Patient seen and examined on the [facility] floor She is on BiPAP Started on remdesivir as well per pulmonary Discussed with case management Discussed with RN Chart reviewed She is extremely ill 06/09/2020 Patient seen and examined on the [facility]- floor She is on 100% nonrebreather appears quite ill Discussed with case management Discussed with RN Chart reviewed Vitals/I&O Vitals/I&O: Vital Signs Date Time Temp Pulse Resp B/P (MAP) Pulse Ox O2 Delivery O2 Flow Rate FiO2 06/20/20 10:00 76 29 122/53 (76) 87 BiPAP/CPAP 06/20/20 08:00 40.0 06/20/20 08:00 98.2 98.2 I & O 06/19/20 06/19/20 06/20/20 15:00 23:00 07:00 Intake Total 120 ml 105 ml 1918 ml Output Total 585 ml 625 ml 185 ml Balance -465 ml -520 ml 1733 ml Physical Exam Physical Exam: GENERAL: Alert, oriented female, in mild distress. VITAL SIGNS: Stable, afebrile. HEENT: NAD. NECK: Supple, no JVP, no lymphadenopathy. LUNGS: Bibasilar crackles on BiPAP HEART: S1, S2 regular. ABDOMEN: Benign. EXTREMITIES: No edema, cyanosis. SKIN: Unremarkable. NEUROLOGIC: Flat affect very sleepy General: Alert, Cooperative, mild distress, moderate distress, Other (On BiPAP) Heart: Other (Tachycardic) Lungs: Clear Abdomen: Normal bowel sounds, Soft, No tenderness, No hepatosplenomegaly, No masses Extremities: No clubbing, No cyanosis, No edema, Normal pulses, No tenderness/swelling Skin: No rashes, No breakdown, No significant lesion Labs Labs: Laboratory Tests Test 06/19/20 11:45 06/19/20 16:24 06/19/20 17:30 06/20/20 05:20 Glucose (Fingerstick) 273 mg/dL (70-99) 283 mg/dL (70-99) D-Dimer (Sarah) 2.00 ug/mlFEU (0.00-0.50) White Blood Count 12.7 x10^3/uL (4.0-11.0) Red Blood Count 4.05 x10^6/uL (3.50-5.40) Hemoglobin 11.6 g/dL (12.0-15.5) Hematocrit 35.5 % (36.0-47.0) Mean Corpuscular Volume 88 fL (79-100) Mean Corpuscular Hemoglobin 29 pg (25-35) Mean Corpuscular Hemoglobin Concent 33 g/dL (31-37) Red Cell Distribution Width 13.5 % (11.5-14.5) Platelet Count 268 x10^3/uL (140-400) Neutrophils (%) (Auto) 87 % (31-73) Lymphocytes (%) (Auto) 7 % (24-48) Monocytes (%) (Auto) 5 % (0-9) Eosinophils (%) (Auto) 1 % (0-3) Basophils (%) (Auto) 0 % (0-3) Neutrophils # (Auto) 11.0 x10^3/uL (1.8-7.7) Lymphocytes # (Auto) 0.8 x10^3/uL (1.0-4.8) Monocytes # (Auto) 0.6 x10^3/uL (0.0-1.1) Eosinophils # (Auto) 0.1 x10^3/uL (0.0-0.7) Basophils # (Auto) 0.0 x10^3/uL (0.0-0.2) Sodium Level 136 mmol/L (136-145) Potassium Level 4.4 mmol/L (3.5-5.1) Chloride Level 100 mmol/L (98-107) Carbon Dioxide Level 28 mmol/L (21-32) Anion Gap 8 (6-14) Blood Urea Nitrogen 100 mg/dL (7-20) Creatinine 1.0 mg/dL (0.6-1.0) Estimated GFR (Cockcroft-Gault) 55.3 Glucose Level 131 mg/dL (70-99) Calcium Level 9.3 mg/dL (8.5-10.1) Test 06/20/20 09:21 O2 Saturation 92 % (92-99) Arterial Blood pH 7.39 (7.35-7.45) Arterial Blood pCO2 at Patient Temp 38 mmHg (35-46) Arterial Blood pO2 at Patient Temp 63 mmHg (65-108) Arterial Blood HCO3 23 mmol/L (21-28) Arterial Blood Base Excess -2 mmol/L (-3-3) FiO2 100 Assessment and Plan Assessmemt and Plan Problems Medical Problems: (1) Elevated d-dimer Status: Acute (2) Hypoxia Status: Acute (3) Pneumonia due to 2019 novel coronavirus Status: Acute Comment Review of Relevant I have reviewed the following items angel luis (where applicable) has been applied. Medications: Current Medications Medications (Trade) Dose Ordered Sig/K[facility] Route PRN Reason Start Time Stop Time Status Last Admin Dose Admin Morphine Sulfate (Morphine Sulfate) 2 mg PRN Q2HR PRN IV SEVERE PAIN 7-10 06/19/20 21:15 06/19/20 21:20 Justifications for Admission Other Justification ALIREZA KINCAID MD Jun 20, 2020 10:08
--- NOTE | 2020-06-20 11:17 | PDOC ---
PULMONARY PROGRESS NOTES DATE: 06/20/20 TIME: 11:15 Subjective Patient remains on BiPAP, 100% No overnight concerns from nursing Vitals Vital Signs Date Time Temp Pulse Resp B/P (MAP) Pulse Ox O2 Delivery O2 Flow Rate FiO2 06/20/20 10:00 76 29 122/53 (76) 87 BiPAP/CPAP 06/20/20 08:00 40.0 06/20/20 08:00 98.2 98.2 Comments Patient seen during , visual exam performed Obesity On BiPAP Regular rate and rhythm no accessory muscle use Bilateral lower extremity edema trace Lungs: Clear Labs Laboratory Tests Test 06/18/20 17:18 06/18/20 21:06 06/19/20 06:10 06/19/20 11:45 Glucose (Fingerstick) 364 mg/dL (70-99) 341 mg/dL (70-99) 273 mg/dL (70-99) White Blood Count 13.7 x10^3/uL (4.0-11.0) Red Blood Count 3.92 x10^6/uL (3.50-5.40) Hemoglobin 11.9 g/dL (12.0-15.5) Hematocrit 34.4 % (36.0-47.0) Mean Corpuscular Volume 88 fL (79-100) Mean Corpuscular Hemoglobin 30 pg (25-35) Mean Corpuscular Hemoglobin Concent 35 g/dL (31-37) Red Cell Distribution Width 13.9 % (11.5-14.5) Platelet Count 275 x10^3/uL (140-400) Neutrophils (%) (Auto) 89 % (31-73) Lymphocytes (%) (Auto) 5 % (24-48) Monocytes (%) (Auto) 5 % (0-9) Eosinophils (%) (Auto) 1 % (0-3) Basophils (%) (Auto) 0 % (0-3) Neutrophils # (Auto) 12.2 x10^3/uL (1.8-7.7) Lymphocytes # (Auto) 0.7 x10^3/uL (1.0-4.8) Monocytes # (Auto) 0.6 x10^3/uL (0.0-1.1) Eosinophils # (Auto) 0.2 x10^3/uL (0.0-0.7) Basophils # (Auto) 0.0 x10^3/uL (0.0-0.2) Sodium Level 136 mmol/L (136-145) Potassium Level 4.0 mmol/L (3.5-5.1) Chloride Level 100 mmol/L (98-107) Carbon Dioxide Level 30 mmol/L (21-32) Anion Gap 6 (6-14) Blood Urea Nitrogen 102 mg/dL (7-20) Creatinine 1.1 mg/dL (0.6-1.0) Estimated GFR (Cockcroft-Gault) 49.5 Glucose Level 178 mg/dL (70-99) Calcium Level 9.3 mg/dL (8.5-10.1) Magnesium Level 2.4 mg/dL (1.8-2.4) Ferritin 623 ng/mL (8-252) Lactate Dehydrogenase 443 U/L (81-234) Creatine Kinase 38 U/L (26-192) NG-Gep-X-Type Natriuretic Peptide 206 pg/mL (0-124) Test 06/19/20 16:24 06/19/20 17:30 06/20/20 05:20 06/20/20 09:21 Glucose (Fingerstick) 283 mg/dL (70-99) D-Dimer (Sarah) 2.00 ug/mlFEU (0.00-0.50) White Blood Count 12.7 x10^3/uL (4.0-11.0) Red Blood Count 4.05 x10^6/uL (3.50-5.40) Hemoglobin 11.6 g/dL (12.0-15.5) Hematocrit 35.5 % (36.0-47.0) Mean Corpuscular Volume 88 fL (79-100) Mean Corpuscular Hemoglobin 29 pg (25-35) Mean Corpuscular Hemoglobin Concent 33 g/dL (31-37) Red Cell Distribution Width 13.5 % (11.5-14.5) Platelet Count 268 x10^3/uL (140-400) Neutrophils (%) (Auto) 87 % (31-73) Lymphocytes (%) (Auto) 7 % (24-48) Monocytes (%) (Auto) 5 % (0-9) Eosinophils (%) (Auto) 1 % (0-3) Basophils (%) (Auto) 0 % (0-3) Neutrophils # (Auto) 11.0 x10^3/uL (1.8-7.7) Lymphocytes # (Auto) 0.8 x10^3/uL (1.0-4.8) Monocytes # (Auto) 0.6 x10^3/uL (0.0-1.1) Eosinophils # (Auto) 0.1 x10^3/uL (0.0-0.7) Basophils # (Auto) 0.0 x10^3/uL (0.0-0.2) Sodium Level 136 mmol/L (136-145) Potassium Level 4.4 mmol/L (3.5-5.1) Chloride Level 100 mmol/L (98-107) Carbon Dioxide Level 28 mmol/L (21-32) Anion Gap 8 (6-14) Blood Urea Nitrogen 100 mg/dL (7-20) Creatinine 1.0 mg/dL (0.6-1.0) Estimated GFR (Cockcroft-Gault) 55.3 Glucose Level 131 mg/dL (70-99) Calcium Level 9.3 mg/dL (8.5-10.1) O2 Saturation 92 % (92-99) Arterial Blood pH 7.39 (7.35-7.45) Arterial Blood pCO2 at Patient Temp 38 mmHg (35-46) Arterial Blood pO2 at Patient Temp 63 mmHg (65-108) Arterial Blood HCO3 23 mmol/L (21-28) Arterial Blood Base Excess -2 mmol/L (-3-3) FiO2 100 Laboratory Tests Test 06/19/20 11:45 06/19/20 16:24 06/19/20 17:30 06/20/20 05:20 Glucose (Fingerstick) 273 mg/dL (70-99) 283 mg/dL (70-99) D-Dimer (Sarah) 2.00 ug/mlFEU (0.00-0.50) White Blood Count 12.7 x10^3/uL (4.0-11.0) Red Blood Count 4.05 x10^6/uL (3.50-5.40) Hemoglobin 11.6 g/dL (12.0-15.5) Hematocrit 35.5 % (36.0-47.0) Mean Corpuscular Volume 88 fL (79-100) Mean Corpuscular Hemoglobin 29 pg (25-35) Mean Corpuscular Hemoglobin Concent 33 g/dL (31-37) Red Cell Distribution Width 13.5 % (11.5-14.5) Platelet Count 268 x10^3/uL (140-400) Neutrophils (%) (Auto) 87 % (31-73) Lymphocytes (%) (Auto) 7 % (24-48) Monocytes (%) (Auto) 5 % (0-9) Eosinophils (%) (Auto) 1 % (0-3) Basophils (%) (Auto) 0 % (0-3) Neutrophils # (Auto) 11.0 x10^3/uL (1.8-7.7) Lymphocytes # (Auto) 0.8 x10^3/uL (1.0-4.8) Monocytes # (Auto) 0.6 x10^3/uL (0.0-1.1) Eosinophils # (Auto) 0.1 x10^3/uL (0.0-0.7) Basophils # (Auto) 0.0 x10^3/uL (0.0-0.2) Sodium Level 136 mmol/L (136-145) Potassium Level 4.4 mmol/L (3.5-5.1) Chloride Level 100 mmol/L (98-107) Carbon Dioxide Level 28 mmol/L (21-32) Anion Gap 8 (6-14) Blood Urea Nitrogen 100 mg/dL (7-20) Creatinine 1.0 mg/dL (0.6-1.0) Estimated GFR (Cockcroft-Gault) 55.3 Glucose Level 131 mg/dL (70-99) Calcium Level 9.3 mg/dL (8.5-10.1) Test 06/20/20 09:21 O2 Saturation 92 % (92-99) Arterial Blood pH 7.39 (7.35-7.45) Arterial Blood pCO2 at Patient Temp 38 mmHg (35-46) Arterial Blood pO2 at Patient Temp 63 mmHg (65-108) Arterial Blood HCO3 23 mmol/L (21-28) Arterial Blood Base Excess -2 mmol/L (-3-3) FiO2 100 Medications Active Scripts Medications Dose Route/Sig Max Daily Dose Days Date Category Sertraline Hcl 100 Mg Tablet 100 Mg PO DAILY 06/07/20 Reported Potassium Chloride 8 Meq Capsule.er 1 Cap PO DAILY 06/07/20 Reported Novolog Flexpen (Insulin Aspart) 100 Unit/1 Ml Insuln.pen 1 Unit SQ TIDAC 06/07/20 Reported Glipizide Er (Glipizide) 5 Mg Tab.er.24 1 Tab PO QAM 06/07/20 Reported Darifenacin ER (Darifenacin Hydrobromide) 7.5 Mg Tab.er.24h 1 Tab PO DAILY 06/07/20 Reported Losartan-Hctz 50-12.5 Mg Tab (Losartan/Hydrochlorothiazide) 1 Each Tablet 1 Tab PO DAILY 06/07/20 Reported Furosemide 40 Mg Tablet 1 Tab PO DAILY 06/07/20 Reported Prednisolone Acetate 5 Ml Drops.susp 2 Drop OU QID 06/07/20 Reported Gabapentin 300 Mg Capsule 600 Mg PO DAILY 06/07/20 Reported Novolog (Insulin Aspart) 100 Unit/1 Ml Cartridge 20 Unit SQ TIDAC 03/25/16 Reported Comments CTA chest IMPRESSION: 1. There is no CT evidence of pulmonary embolus. 2. There are patchy groundglass opacities throughout the lungs with interspersed normal lung. Relative sparing of the basilar left lower lobe and the lung apices. There is no confluent consolidation. Considerations include pneumonia including atypical viral pneumonia, nonspecific pneumonitis, or drug toxicity. Impression . IMPRESSION: 1. Acute hypoxic respiratory failure secondary to acute lung injury, acute respiratory distress syndrome due to COVID-19 pneumonia. 2. COVID-[address] chest with diffuse extensive bilateral infiltrates. No evidence of pulmonary embolism. This finding is consistent with COVID-19 pneumonia. 4. Underlying morbid obesity contributing to hypoxia. prob dante 5. No significant tobacco use. Plan . RECOMMENDATIONS: Continue current supplemental oxygen with BiPAP 100%, titrate as possible to keep sats above 92 % Follow chest x-ray and ABG, no changes today Follow infectious disease recommendations, currently off antibiotics Continue remdesivir for full 5-day course D/C steroids has completed Full ten days course Monitor renal function Continue PPN for nutritional support PT/OT DVT/GI prophylaxis No clinical improvement Discussed with RN and RT. Critical care time 1000-1030AM Pt. is FULL AVA JOHNSON MD Jun 20, 2020 11:17
[2020-06-20] MEDS: MORPHINE SULFATE 2 MG/ML VIAL. IV PRN (15:26)
[2020-06-20] MEDS: INSULIN GLARGINE SYRINGE. SQ SCH (21:16)
[2020-06-21] VITALS (24 sets, daily range): BP systolic 95–149; BP diastolic 46–77
--- NOTE | 2020-06-21 07:36 | RAD ---
AP portable chest radiograph 06/21/2020 Clinical History: Respiratory failure. An AP erect portable digital radiograph of the chest was obtained. Comparison study is dated 06/16/2020. The Patient is slightly rotated to the right. A right arm PICC is unchanged in position. Spinal stimu lator leads are unchanged. Side plate and multiple bone screws overlie the proximal left humerus. The cardiac silhouette is mildly enlarged. The thoracic aorta is mildly tortuous. Bilateral perihilar in filtrates are seen involving both lungs which appear increased slightly. No pneumothorax or pleural e ffusion is seen. The osseous structures are unchanged. Impression: Slight interval increase in the bilateral lung infiltrates. Electronically signed by: Jamshid Dewey MD (06/21/2020 7:34 AM) [id number]
[2020-06-21] MEDS: glipiZIDE ER 2.5 MG TAB.ER.24 PO SCH (08:00)
[2020-06-21] MEDS: POTASSIUM CHLORIDE 10 MEQ TABLET.ER. PO SCH (08:00)
[2020-06-21] MEDS: INSULIN LISPRO 300 UNITS/3 ML VIAL. SQ SCH ×6 (08:00→18:58)
[2020-06-21] MEDS: hydroCHLOROthiazide 12.5 MG CAPSULE PO SCH (09:00)
[2020-06-21] MEDS: GABAPENTIN 300 MG CAPSULE. PO SCH (09:00)
[2020-06-21] MEDS: SERTRALINE 50 MG TABLET. PO SCH (09:00)
[2020-06-21] MEDS: MULTIVITAMIN with MINERAL TABLET. PO SCH (09:00)
[2020-06-21] MEDS: FUROSEMIDE 40 MG TABLET. PO SCH (09:00)
[2020-06-21] MEDS: ZINC SULFATE 220 MG CAPSULE. PO SCH (09:00)
[2020-06-21] MEDS: LOSARTAN POTASSIUM 50 MG TABLET. PO SCH (09:00)
[2020-06-21] MEDS: OXYBUTYNIN CHLORIDE 5 MG TABLET PO SCH ×2 (09:00→20:58)
[2020-06-21] MEDS: ASCORBIC ACID 500 MG TABLET PO SCH (09:00)
[2020-06-21] MEDS: ENOXAPARIN 40 MG/0.4 ML SYRINGE. SQ SCH ×2 (09:27→20:59)
[2020-06-21] MEDS: DEXAMETHASONE 0.1% OPHTH SOLUTION 5ML BOTTLE. OU SCH ×4 (09:28→20:58)
[2020-06-21] MEDS: NYSTATIN TOPICAL POWDER 15GM BOTTLE. TP SCH ×2 (09:28→22:27)
[2020-06-21 09:39] LABS: BASE EXCESS ABG 1 mmol/L (-3-3); HCO3 ABG 26 mmol/L (21-28); PCO2 ABG 44 mmHg (35-46); PO2 ABG 54 mmHg (65-108); SAT O2 ABG 87 % (92-99)
[2020-06-21] MEDS: AMINO AC 3%/ELECTROLYTE/GLYCER 1,000 ML IV SCH ×2 (10:54→22:27)
[2020-06-21] MEDS ORDERED: FUROSEMIDE 40 MG/4 ML VIAL. IVP ONE (11:15)
--- NOTE | 2020-06-21 11:42 | NUR ---
Report given to COMFORT Morgan. POC reviewed/discussed.
[2020-06-21] MEDS ORDERED: PROPOFOL 100 ML IV ONE (11:44)
[2020-06-21] MEDS ORDERED: SUCCINYLCHOLINE 200 MG/10 ML VIAL. ONE (11:44)
--- NOTE | 2020-06-21 12:01 | PDOC ---
[facility] [facility] PROGRESS NOTE Date of Service DOS: DATE: 06/21/20 TIME: 12:00 Chief Complaint Chief Complaint Acute respiratory failure with Hypoxia - related to COVID 19 + acute bronchitis Pneumonia due to 2019 novel coronavirus Acute exacerbation of COPD with bronchitis Elevated d-dimer DM2 (A1c 7.7) Depression COPD HTN Stress incontinence Morbid obesity , BMI 48.6 Severe protein calorie malnutrition History of Present Illness History of Present Illness 06/21/2020 No acute events overnight. Patient is afebrile. Patient saturating 91% on BiPAP at 40%. Follow-up and make adjustments depending on ABG.> 50% time spent in patient chart, labs, and imaging review and in discussion with RN and SW 06/20/2020 No acute events overnight. Patient is saturating 84% on BiPAP at 100%. ABG shows pH 7.39, PCO2 38, PO2 63, HCO3 23. No clinical improvement. Tolerating BiPAP and appears to be in minimal distress. Unable to remove as patient will desaturate immediately.> 50% time spent in patient chart, labs, and imaging review and in discussion with RN and SW 06/19/2020 Afebrile no acute events overnight. Patient seen and examined bedside. Patient saturating 93% on BiPAP at 100%.> 50% time spent in patient chart, labs, and imaging review and in discussion with RN and SW 06/18/2020 Some clinical improvement. No acute events overnight. Afebrile. Saturating 94% on 80% BiPAP.> 50% time spent in patient chart, labs, and imaging review and in discussion with RN and SW 06/17/20 No acute events overnight. Patient is currently saturating 94% on 90% FiO2 BiPAP. Chest X showing improvement. Pending ABG at this time. Patient's chart, labs, images were reviewed and discussed with RN 06/16/2020 Currently on BiPAP support of 90% FiO2. ABG showing hypoxemia. Patient currently appears to be slightly dyspneic. That is unchanged from yesterday.> 50% time spent in patient chart, labs, and imaging review and in discussion with RN and SW 06/15/2020 Patient currently on BiPAP support of 80% FiO2. Saturating 100%.> 50% time spent in patient chart, labs, and imaging review and in discussion with RN and SW A total of 35 minutes of critical care time was spent in reviewing chart, labs, and images. Discussed with RN and SW. 06/14/2020 Patient was moved to ICU due to worsening respiratory failure. Completed remdesivir. Currently on BiPAP FiO2 100%. Discussed with RN, she is afebrile, not improving. 06/12. still on resp support, very hypoxic, but comfortable no acute change, ID and pulm following, cont current not improving, prognosis worsens with lack of improvement over time 06/11, now on the BIPAP, has declined, ID and PULM following, cont other managemnt 06/10/2020 Patient seen and examined on the [facility] floor She is on BiPAP Started on remdesivir as well per pulmonary Discussed with case management Discussed with RN Chart reviewed She is extremely ill 06/09/2020 Patient seen and examined on the [facility]- floor She is on 100% nonrebreather appears quite ill Discussed with case management Discussed with RN Chart reviewed Vitals/I&O Vitals/I&O: Vital Signs Date Time Temp Pulse Resp B/P (MAP) Pulse Ox O2 Delivery O2 Flow Rate FiO2 06/21/20 11:00 80 32 130/63 (85) 91 BiPAP/CPAP 06/21/20 08:20 40.0 06/21/20 08:00 98.9 98.9 I & O 06/20/20 06/20/20 06/21/20 14:59 22:59 06:59 Intake Total 120 ml 1281.12 ml 411 ml Output Total 500 ml 500 ml 600 ml Balance -380 ml 781.12 ml -189 ml Physical Exam Physical Exam: GENERAL: Alert, oriented female, in mild distress. VITAL SIGNS: Stable, afebrile. HEENT: NAD. NECK: Supple, no JVP, no lymphadenopathy. LUNGS: Bibasilar crackles on BiPAP HEART: S1, S2 regular. ABDOMEN: Benign. EXTREMITIES: No edema, cyanosis. SKIN: Unremarkable. NEUROLOGIC: Flat affect very sleepy General: Alert, Cooperative, mild distress, moderate distress, Other (On BiPAP) Heart: Other (Tachycardic) Lungs: Clear Abdomen: Normal bowel sounds, Soft, No tenderness, No hepatosplenomegaly, No masses Extremities: No clubbing, No cyanosis, No edema, Normal pulses, No tenderness/swelling Skin: No rashes, No breakdown, No significant lesion Labs Labs: Laboratory Tests Test 06/20/20:09 06/20/20 16:59 06/20/20 21:13 06/21/20 08:18 Glucose (Fingerstick) 245 mg/dL (70-99) 305 mg/dL (70-99) 244 mg/dL (70-99) 188 mg/dL (70-99) Assessment and Plan Assessmemt and Plan Problems Medical Problems: (1) Elevated d-dimer Status: Acute (2) Hypoxia Status: Acute (3) Pneumonia due to 2019 novel coronavirus Status: Acute Comment Review of Relevant I have reviewed the following items angel luis (where applicable) has been applied. Justifications for Admission Other Justification ALIREZA KINCAID MD Jun 21, 2020 12:01
[2020-06-21] MEDS: PROPOFOL 100 ML IV PRN ×3 (12:18→19:51)
[2020-06-21] MEDS: MIDAZOLAM 100mg/100ml NS BAG 100 ML IV PRN (12:22)
[2020-06-21] MEDS ORDERED: SUCCINYLCHOLINE 200 MG/10 ML VIAL. IV ONE (12:30)
--- NOTE | 2020-06-21 13:04 | RAD ---
EXAM: XR CHEST 1V 06/21/2020 12:13 PM CLINICAL INDICATION: ET and OG placement COMPARISON: Chest radiograph 06/21/2020 TECHNIQUE: AP view of the chest FINDINGS: A new endotracheal tube terminates 2 cm above the joya. A nasogastric tube courses below the diaphragm and terminates out of view. Right PICC terminates at the superior cavoatrial junction, unchanged. Cardiomediastinal silhouette is partially obscured, unchanged. Diffuse hazy opacification throughout both lungs, greatest at the bases, greater on the left, is unchanged. IMPRESSION: 1. New endotracheal tube terminating 2 cm above the joya. 2. Nasogastric tube courses below the diaphragm and terminates out of view. 3. Unchanged diffuse pulmonary opacities. Electronically signed by: Olga Perez MD (06/21/2020 1:01 PM) [id number]
--- NOTE | 2020-06-21 14:04 | PDOC ---
PULMONARY PROGRESS NOTES DATE: 06/21/20 TIME: 14:03 Subjective Patient remains on BiPAP, 100% Hypoxia today on exam, pt. reports it is harder to breath and is tired No overnight concerns from nursing Vitals Vital Signs Date Time Temp Pulse Resp B/P (MAP) Pulse Ox O2 Delivery O2 Flow Rate FiO2 06/21/20 13:23 93 06/21/20 13:01 Ventilator 06/21/20 13:00 82 23 106/53 (70) 06/21/20 12:00 99.0 99.0 06/21/20 08:20 40.0 Comments Patient seen during COVID- pandemic, visual exam performed Obesity On BiPAP Regular rate and rhythm no accessory muscle use Bilateral lower extremity edema trace Lungs: Clear Labs Laboratory Tests Test 06/19/20 16:24 06/19/20 17:30 06/20/20 05:20 06/20/20 09:21 Glucose (Fingerstick) 283 mg/dL (70-99) D-Dimer (Sarah) 2.00 ug/mlFEU (0.00-0.50) White Blood Count 12.7 x10^3/uL (4.0-11.0) Red Blood Count 4.05 x10^6/uL (3.50-5.40) Hemoglobin 11.6 g/dL (12.0-15.5) Hematocrit 35.5 % (36.0-47.0) Mean Corpuscular Volume 88 fL (79-100) Mean Corpuscular Hemoglobin 29 pg (25-35) Mean Corpuscular Hemoglobin Concent 33 g/dL (31-37) Red Cell Distribution Width 13.5 % (11.5-14.5) Platelet Count 268 x10^3/uL (140-400) Neutrophils (%) (Auto) 87 % (31-73) Lymphocytes (%) (Auto) 7 % (24-48) Monocytes (%) (Auto) 5 % (0-9) Eosinophils (%) (Auto) 1 % (0-3) Basophils (%) (Auto) 0 % (0-3) Neutrophils # (Auto) 11.0 x10^3/uL (1.8-7.7) Lymphocytes # (Auto) 0.8 x10^3/uL (1.0-4.8) Monocytes # (Auto) 0.6 x10^3/uL (0.0-1.1) Eosinophils # (Auto) 0.1 x10^3/uL (0.0-0.7) Basophils # (Auto) 0.0 x10^3/uL (0.0-0.2) Sodium Level 136 mmol/L (136-145) Potassium Level 4.4 mmol/L (3.5-5.1) Chloride Level 100 mmol/L (98-107) Carbon Dioxide Level 28 mmol/L (21-32) Anion Gap 8 (6-14) Blood Urea Nitrogen 100 mg/dL (7-20) Creatinine 1.0 mg/dL (0.6-1.0) Estimated GFR (Cockcroft-Gault) 55.3 Glucose Level 131 mg/dL (70-99) Calcium Level 9.3 mg/dL (8.5-10.1) O2 Saturation 92 % (92-99) Arterial Blood pH 7.39 (7.35-7.45) Arterial Blood pCO2 at Patient Temp 38 mmHg (35-46) Arterial Blood pO2 at Patient Temp 63 mmHg (65-108) Arterial Blood HCO3 23 mmol/L (21-28) Arterial Blood Base Excess -2 mmol/L (-3-3) FiO2 100 Test 06/20/20 12:09 06/20/20 16:59 06/20/20 21:13 06/21/20 08:18 Glucose (Fingerstick) 245 mg/dL (70-99) 305 mg/dL (70-99) 244 mg/dL (70-99) 188 mg/dL (70-99) Test 06/21/20 13:06 Glucose (Fingerstick) 262 mg/dL (70-99) Laboratory Tests Test 06/20/20 16:59 06/20/20 21:13 06/21/20 08:18 06/21/20 13:06 Glucose (Fingerstick) 305 mg/dL (70-99) 244 mg/dL (70-99) 188 mg/dL (70-99) 262 mg/dL (70-99) Medications Active Scripts Medications Dose Route/Sig Max Daily Dose Days Date Category Sertraline Hcl 100 Mg Tablet 100 Mg PO DAILY 06/07/20 Reported Potassium Chloride 8 Meq Capsule.er 1 Cap PO DAILY 06/07/20 Reported Novolog Flexpen (Insulin Aspart) 100 Unit/1 Ml Insuln.pen 1 Unit SQ TIDAC 06/07/20 Reported Glipizide Er (Glipizide) 5 Mg Tab.er.24 1 Tab PO QAM 06/07/20 Reported Darifenacin ER (Darifenacin Hydrobromide) 7.5 Mg Tab.er.24h 1 Tab PO DAILY 06/07/20 Reported Losartan-Hctz 50-12.5 Mg Tab (Losartan/Hydrochlorothiazide) 1 Each Tablet 1 Tab PO DAILY 06/07/20 Reported Furosemide 40 Mg Tablet 1 Tab PO DAILY 06/07/20 Reported Prednisolone Acetate 5 Ml Drops.susp 2 Drop OU QID 06/07/20 Reported Gabapentin 300 Mg Capsule 600 Mg PO DAILY 06/07/20 Reported Novolog (Insulin Aspart) 100 Unit/1 Ml Cartridge 20 Unit SQ TIDAC 03/25/16 Reported Comments CTA chest IMPRESSION: 1. There is no CT evidence of pulmonary embolus. 2. There are patchy groundglass opacities throughout the lungs with interspersed normal lung. Relative sparing of the basilar left lower lobe and the lung apices. There is no confluent consolidation. Considerations include pneumonia including atypical viral pneumonia, nonspecific pneumonitis, or drug toxicity. Impression . IMPRESSION: 1. Acute hypoxic respiratory failure secondary to acute lung injury, acute respiratory distress syndrome due to COVID-19 pneumonia. 2. COVID-[address] chest with diffuse extensive bilateral infiltrates. No evidence of pulmonary embolism. This finding is consistent with COVID-19 pneumonia. 4. Underlying morbid obesity contributing to hypoxia. prob dante 5. No significant tobacco use. Plan . RECOMMENDATIONS: Continue current supplemental oxygen with BiPAP 100%, titrate as possible to keep sats above 92 % Will proceed with intubation, discussed with pt. and Family Follow chest x-ray and ABG, as above Follow infectious disease recommendations, currently off antibiotics Continue remdesivir for full 5-day course D/C steroids has completed Full ten days course Monitor renal function Continue PPN for nutritional support, consult equipment or machinery cleaner once intubated to offer tube feeding recs PT/OT DVT/GI prophylaxis No clinical improvement Discussed with RN and RT. Critical care time 1015-1045AM Pt. is FULL AVA JOHNSON MD Jun 21, 2020 14:04
[2020-06-21 15:31] LABS: FIO2 ABG 100/BIPAP
[2020-06-21 15:33] LABS: BASE EXCESS ABG -1 mmol/L (-3-3); HCO3 ABG 25 mmol/L (21-28); PCO2 ABG 45 mmHg (35-46); PO2 ABG 61 mmHg (65-108); SAT O2 ABG 90 % (92-99)
[2020-06-21 16:15] LABS: FIO2 ABG 100/VENT
[2020-06-21] MEDS: FAMOTIDINE 20 MG/2 ML VIAL IVP SCH (20:58)
[2020-06-21] MEDS: CHLORHEXIDINE 0.12% 15 ML MOUTHWASH. MM SCH (20:58)
[2020-06-21] MEDS: INSULIN GLARGINE SYRINGE. SQ SCH (21:00)
[2020-06-22] VITALS (31 sets, daily range): BP systolic 80–200; BP diastolic 40–86
[2020-06-22] MEDS: INSULIN LISPRO 300 UNITS/3 ML VIAL. SQ SCH ×8 (06:00→18:00)
[2020-06-22] MEDS: MIDAZOLAM 100mg/100ml NS BAG 100 ML IV PRN ×2 (06:55→15:57)
[2020-06-22] MEDS: FAMOTIDINE 20 MG/2 ML VIAL IVP SCH ×2 (08:09→21:14)
[2020-06-22] MEDS: ZINC SULFATE 220 MG CAPSULE. PO SCH (08:10)
[2020-06-22] MEDS: ASCORBIC ACID 500 MG TABLET PO SCH (08:10)
[2020-06-22] MEDS: OXYBUTYNIN CHLORIDE 5 MG TABLET PO SCH ×2 (08:10→21:15)
[2020-06-22] MEDS: GABAPENTIN 300 MG CAPSULE. PO SCH (08:10)
[2020-06-22] MEDS: glipiZIDE ER 2.5 MG TAB.ER.24 PO SCH (08:10)
[2020-06-22] MEDS: SERTRALINE 50 MG TABLET. PO SCH (08:10)
[2020-06-22] MEDS: FUROSEMIDE 40 MG TABLET. PO SCH (08:11)
[2020-06-22] MEDS: MULTIVITAMIN with MINERAL TABLET. PO SCH (08:11)
[2020-06-22] MEDS: hydroCHLOROthiazide 12.5 MG CAPSULE PO SCH (08:11)
[2020-06-22] MEDS: ENOXAPARIN 40 MG/0.4 ML SYRINGE. SQ SCH ×2 (08:12→21:15)
[2020-06-22] MEDS: NYSTATIN TOPICAL POWDER 15GM BOTTLE. TP SCH ×2 (08:15→21:10)
--- NOTE | 2020-06-22 08:27 | PDOC ---
PULMONARY PROGRESS NOTES DATE: 06/22/20 TIME: 08:26 Subjective Patient was intubated on 06/21 for worsening respiratory distress now on 100% and PEEP 10 afebrile No overnight concerns from nursing Vitals Vital Signs Date Time Temp Pulse Resp B/P (MAP) Pulse Ox O2 Delivery O2 Flow Rate FiO2 06/22/20 08:13 24 Ventilator 06/22/20 06:00 76 115/49 (71) 93 06/22/20 04:00 98.8 98.8 06/21/20 08:20 40.0 Comments Patient seen during pandemic, visual exam performed Obesity intubated/sedated Regular rate and rhythm no accessory muscle use Bilateral lower extremity edema trace Lungs: Clear Labs Laboratory Tests Test 06/20/20 09:21 06/20/20 12:09 06/20/20 16:59 06/20/20 21:13 O2 Saturation 92 % (92-99) Arterial Blood pH 7.39 (7.35-7.45) Arterial Blood pCO2 at Patient Temp 38 mmHg (35-46) Arterial Blood pO2 at Patient Temp 63 mmHg (65-108) Arterial Blood HCO3 23 mmol/L (21-28) Arterial Blood Base Excess -2 mmol/L (-3-3) FiO2 100 Glucose (Fingerstick) 245 mg/dL (70-99) 305 mg/dL (70-99) 244 mg/dL (70-99) Test 06/21/20 08:18 06/21/20 13:06 06/21/20 14:00 06/21/20 14:01 Glucose (Fingerstick) 188 mg/dL (70-99) 262 mg/dL (70-99) O2 Saturation 87 % (92-99) 90 % (92-99) Arterial Blood pH 7.39 (7.35-7.45) 7.36 (7.35-7.45) Arterial Blood pCO2 at Patient Temp 44 mmHg (35-46) 45 mmHg (35-46) Arterial Blood pO2 at Patient Temp 54 mmHg (65-108) 61 mmHg (65-108) Arterial Blood HCO3 26 mmol/L (21-28) 25 mmol/L (21-28) Arterial Blood Base Excess 1 mmol/L (-3-3) -1 mmol/L (-3-3) FiO2 100/bipap 100/vent Test 06/21/20 18:55 06/22/20 00:17 Glucose (Fingerstick) 241 mg/dL (70-99) 118 mg/dL (70-99) Laboratory Tests Test 06/21/20 13:06 06/21/20 14:00 06/21/20 14:01 06/21/20 18:55 Glucose (Fingerstick) 262 mg/dL (70-99) 241 mg/dL (70-99) O2 Saturation 87 % (92-99) 90 % (92-99) Arterial Blood pH 7.39 (7.35-7.45) 7.36 (7.35-7.45) Arterial Blood pCO2 at Patient Temp 44 mmHg (35-46) 45 mmHg (35-46) Arterial Blood pO2 at Patient Temp 54 mmHg (65-108) 61 mmHg (65-108) Arterial Blood HCO3 26 mmol/L (21-28) 25 mmol/L (21-28) Arterial Blood Base Excess 1 mmol/L (-3-3) -1 mmol/L (-3-3) FiO2 100/bipap 100/vent Test 06/22/20 00:17 Glucose (Fingerstick) 118 mg/dL (70-99) Medications Active Scripts Medications Dose Route/Sig Max Daily Dose Days Date Category Sertraline Hcl 100 Mg Tablet 100 Mg PO DAILY 06/07/20 Reported Potassium Chloride 8 Meq Capsule.er 1 Cap PO DAILY 06/07/20 Reported Novolog Flexpen (Insulin Aspart) 100 Unit/1 Ml Insuln.pen 1 Unit SQ TIDAC 06/07/20 Reported Glipizide Er (Glipizide) 5 Mg Tab.er.24 1 Tab PO QAM 06/07/20 Reported Darifenacin ER (Darifenacin Hydrobromide) 7.5 Mg Tab.er.24h 1 Tab PO DAILY 06/07/20 Reported Losartan-Hctz 50-12.5 Mg Tab (Losartan/Hydrochlorothiazide) 1 Each Tablet 1 Tab PO DAILY 06/07/20 Reported Furosemide 40 Mg Tablet 1 Tab PO DAILY 06/07/20 Reported Prednisolone Acetate 5 Ml Drops.susp 2 Drop OU QID 06/07/20 Reported Gabapentin 300 Mg Capsule 600 Mg PO DAILY 06/07/20 Reported Novolog (Insulin Aspart) 100 Unit/1 Ml Cartridge 20 Unit SQ TIDAC 03/25/16 Reported Comments CTA chest IMPRESSION: 1. There is no CT evidence of pulmonary embolus. 2. There are patchy groundglass opacities throughout the lungs with interspersed normal lung. Relative sparing of the basilar left lower lobe and the lung apices. There is no confluent consolidation. Considerations include pneumonia including atypical viral pneumonia, nonspecific pneumonitis, or drug toxicity. Impression . IMPRESSION: 1. Acute hypoxic respiratory failure secondary to acute lung injury, acute respiratory distress syndrome due to COVID-19 pneumonia. 2. COVID-[address] chest with diffuse extensive bilateral infiltrates. No evidence of pulmonary embolism. This finding is consistent with COVID-19 pneumonia. 4. Underlying morbid obesity contributing to hypoxia. prob dante 5. No significant tobacco use. Plan . RECOMMENDATIONS: Continue current vent support Fi02 100% and PEEP 10 now in 1:1 ratio Follow chest x-ray and ABG, as above Follow infectious disease recommendations, currently off antibiotics Continue remdesivir for full 5-day course D/C steroids has completed Full ten days course Monitor renal function Tube feeding for nutritional support,D/C PPN when at goal on TF PT/OT DVT/GI prophylaxis No clinical improvement Discussed with RN and RT. Critical care time [id number] Pt. is FULL AVA JOHNSON MD Jun 22, 2020 08:26
[2020-06-22 08:44] LABS: BASE EXCESS ABG -1 mmol/L (-3-3); HCO3 ABG 25 mmol/L (21-28); PCO2 ABG 47 mmHg (35-46); PO2 ABG 58 mmHg (65-108); SAT O2 ABG 88 % (92-99)
[2020-06-22 08:50] LABS: FIO2 ABG 100/VENT
[2020-06-22] MEDS: LOSARTAN POTASSIUM 50 MG TABLET. PO SCH (09:00)
[2020-06-22] MEDS: CHLORHEXIDINE 0.12% 15 ML MOUTHWASH. MM SCH ×2 (09:00→20:32)
[2020-06-22] MEDS: DEXAMETHASONE 0.1% OPHTH SOLUTION 5ML BOTTLE. OU SCH ×4 (09:00→21:10)
[2020-06-22 09:20] LABS: BASO % 0 % (0-3); EOS # 0.2 x10^3/uL (0.0-0.7); EOS % 2 % (0-3); HEMATOCRIT 31.3 % (36.0-47.0); HEMOGLOBIN 10.5 g/dL (12.0-15.5); LYMPH # 0.8 x10^3/uL (1.0-4.8); LYMPH % 8 % (24-48); MEAN CORPUSCULAR HEMOGLOBIN 30 pg (25-35); MEAN CORPUSCULAR HGB CONC 34 g/dL (31-37); MEAN CORPUSCULAR VOLUME 88 fL (79-100); MONO # 0.3 x10^3/uL (0.0-1.1); MONO % 3 % (0-9); NEUT # 8.8 x10^3/uL (1.8-7.7); NEUT % 87 % (31-73); PLATELET COUNT 207 x10^3/uL (140-400); RED BLOOD COUNT 3.55 x10^6/uL (3.50-5.40); RED CELL DISTRIBUTION WIDTH 14.3 % (11.5-14.5); WHITE BLOOD COUNT 10.2 x10^3/uL (4.0-11.0)
[2020-06-22] MEDS ORDERED: VECURONIUM BOLUS 10 MG VIAL. IV ONE ×3 (09:24→13:31)
[2020-06-22 09:29] LABS: CALCIUM 8.8 mg/dL (8.5-10.1); CREATININE 1.1 mg/dL (0.6-1.0); GFR 49.5; POTASSIUM 4.8 mmol/L (3.5-5.1)
--- NOTE | 2020-06-22 09:30 | PDOC ---
[facility] PROGRESS NOTE Date of Service DOS: DATE: 06/22/20 TIME: 09:27 Chief Complaint Chief Complaint Acute respiratory failure with Hypoxia - related to COVID 19 + acute bronchitis Pneumonia due to 2019 novel coronavirus Acute exacerbation of COPD with bronchitis Elevated d-dimer DM2 (A1c 7.7) Depression COPD HTN Stress incontinence Morbid obesity , BMI 48.6 Severe protein calorie malnutrition History of Present Illness History of Present Illness 06/21: Patient saturating 91% on BiPAP at 40%. Intubated. Afebrile. Seen on vent PEEP 10, FiO2 100%. UOP dropped overnight. D/w nursing to initiate tube feedings today. 06/20/2020 No acute events overnight. Patient is saturating 84% on BiPAP at 100%. ABG shows pH 7.39, PCO2 38, PO2 63, HCO3 23. No clinical improvement. Tolerating BiPAP and appears to be in minimal distress. Unable to remove as patient will desaturate immediately.> 50% time spent in patient chart, labs, and imaging review and in discussion with RN and SW 06/19/2020 Afebrile no acute events overnight. Patient seen and examined bedside. Patient saturating 93% on BiPAP at 100%.> 50% time spent in patient chart, labs, and imaging review and in discussion with RN and SW 06/18/2020 Some clinical improvement. No acute events overnight. Afebrile. Saturating 94% on 80% BiPAP.> 50% time spent in patient chart, labs, and imaging review and in discussion with RN and SW 06/17/20 No acute events overnight. Patient is currently saturating 94% on 90% FiO2 BiPAP. Chest X showing improvement. Pending ABG at this time. Patient's chart, labs, images were reviewed and discussed with RN 06/16/2020 Currently on BiPAP support of 90% FiO2. ABG showing hypoxemia. Patient currently appears to be slightly dyspneic. That is unchanged from yesterday.> 50% time spent in patient chart, labs, and imaging review and in discussion with RN and SW 06/15/2020 Patient currently on BiPAP support of 80% FiO2. Saturating 100%.> 50% time spent in patient chart, labs, and imaging review and in discussion with RN and SW A total of 35 minutes of critical care time was spent in reviewing chart, labs, and images. Discussed with RN and SW. 06/14/2020 Patient was moved to ICU due to worsening respiratory failure. Completed remdesivir. Currently on BiPAP FiO2 100%. Discussed with RN, she is afebrile, not improving. 06/12. still on resp support, very hypoxic, but comfortable no acute change, ID and pulm following, cont current not improving, prognosis worsens with lack of improvement over time 06/11, now on the BIPAP, has declined, ID and PULM following, cont other managemnt 06/10/2020 Patient seen and examined on the [place] [id number] floor She is on BiPAP Started on remdesivir as well per pulmonary Discussed with case management Discussed with RN Chart reviewed She is extremely ill 06/09/2020 Patient seen and examined on the [place] [id number] floor She is on 100% nonrebreather appears quite ill Discussed with case management Discussed with RN Chart reviewed Vitals/I&O Vitals/I&O: Vital Signs Date Time Temp Pulse Resp B/P (MAP) Pulse Ox O2 Delivery O2 Flow Rate FiO2 06/22/20 08:30 93 Ventilator 06/22/20 08:13 24 06/22/20 06:00 76 115/49 (71) 06/22/20 04:00 98.8 98.8 06/21/20 08:20 40.0 I & O 06/21/20 06/21/20 06/22/20 15:00 23:00 07:00 Intake Total 863 ml 687 ml 1192 ml Output Total 370 ml 130 ml 170 ml Balance 493 ml 557 ml 1022 ml Physical Exam Physical Exam: GENERAL: Alert, oriented female, in mild distress. VITAL SIGNS: Stable, afebrile. HEENT: NAD. NECK: Supple, no JVP, no lymphadenopathy. LUNGS: Bibasilar crackles on BiPAP HEART: S1, S2 regular. ABDOMEN: Benign. EXTREMITIES: No edema, cyanosis. SKIN: Unremarkable. NEUROLOGIC: Flat affect very sleepy General: Alert, Cooperative, mild distress, moderate distress, Other (On BiPAP) Heart: Other (Tachycardic) Lungs: Clear Abdomen: Normal bowel sounds, Soft, No tenderness, No hepatosplenomegaly, No masses Extremities: No clubbing, No cyanosis, No edema, Normal pulses, No tenderness/swelling Skin: No rashes, No breakdown, No significant lesion Labs Labs: Laboratory Tests Test 06/21/20 13:06 06/21/20 14:00 06/21/20 14:01 06/21/20 18:55 Glucose (Fingerstick) 262 mg/dL (70-99) 241 mg/dL (70-99) O2 Saturation 87 % (92-99) 90 % (92-99) Arterial Blood pH 7.39 (7.35-7.45) 7.36 (7.35-7.45) Arterial Blood pCO2 at Patient Temp 44 mmHg (35-46) 45 mmHg (35-46) Arterial Blood pO2 at Patient Temp 54 mmHg (65-108) 61 mmHg (65-108) Arterial Blood HCO3 26 mmol/L (21-28) 25 mmol/L (21-28) Arterial Blood Base Excess 1 mmol/L (-3-3) -1 mmol/L (-3-3) FiO2 100/bipap 100/vent Test 06/22/20 00:17 06/22/20 08:00 Glucose (Fingerstick) 118 mg/dL (70-99) O2 Saturation 88 % (92-99) Arterial Blood pH 7.35 (7.35-7.45) Arterial Blood pCO2 at Patient Temp 47 mmHg (35-46) Arterial Blood pO2 at Patient Temp 58 mmHg (65-108) Arterial Blood HCO3 25 mmol/L (21-28) Arterial Blood Base Excess -1 mmol/L (-3-3) FiO2 100/vent Assessment and Plan Assessmemt and Plan Problems Medical Problems: (1) Elevated d-dimer Status: Acute (2) Hypoxia Status: Acute (3) Pneumonia due to 2019 novel coronavirus Status: Acute Comment Review of Relevant I have reviewed the following items angel luis (where applicable) has been applied. Medications: Current Medications Medications (Trade) Dose Ordered Sig/Kaiser Route PRN Reason Start Time Stop Time Status Last Admin Dose Admin Insulin Human Lispro (HumaLOG) 0-5 UNITS Q6HRS SQ 06/21/20 12:00 06/21/20 13:10 Insulin Human Lispro (HumaLOG) 20 units Q6HRS SQ 06/21/20 12:00 06/21/20 18:58 Furosemide (Lasix) 40 mg 1X ONCE IVP 06/21/20 11:15 06/21/20 11:16 DC 06/21/20 13:04 Fentanyl Citrate 30 ml @ 0 mls/hr CONT PRN IV SEE PROTOCOL 06/21/20 12:00 06/22/20 08:13 Propofol 100 ml @ 0 mls/hr CONT PRN IV PER PROTOCOL 06/21/20 12:00 06/21/20 19:51 Chlorhexidine Gluconate (Peridex) 15 ml BID MM 06/21/20 21:00 06/21/20 20:58 Midazolam HCl 100 ml @ 0 mls/hr CONT PRN IV SEE PROTOCOL 06/21/20 12:00 06/22/20 06:55 Succinylcholine Chloride (Anectine) 200 mg 1X ONCE IV 06/21/20 12:30 06/21/20 12:31 DC 06/21/20 13:01 Famotidine (Pepcid Vial) 20 mg BID IVP 06/21/20 21:00 06/22/20 08:09 Justifications for Admission Other Justification ALEKSANDR CLAIRE MD Jun 22, 2020 09:30
[2020-06-22 10:51] LABS: % EOS 2 % (0-5); % LYMPHS 12 % (24-48); % MONOS 4 % (0-10); % SEGS 82 % (35-66)
[2020-06-22 10:52] LABS: PLT ESTIMATE ADEQUATE (ADEQUATE)
[2020-06-22] MEDS ORDERED: FENTANYL IV PRN (11:15)
[2020-06-22] MEDS: fentaNYL HIGH DOSE PCA 55 ML IV PRN (12:17)
[2020-06-22] MEDS: POTASSIUM CHLORIDE 10 MEQ TABLET.ER. PO SCH (13:18)
[2020-06-22] MEDS ORDERED: VECURONIUM BOLUS 10 MG VIAL. IV PRN (13:45)
--- NOTE | 2020-06-22 13:53 | NUR ---
DR Farmer here earlier. Changed to 1:1 I/E ratio. Changed to HD fent and dose increased to 150mcg/hr and Versed to 10 mg/hr as pt sat stays in the upper 80's without being disturbed. Min secretions. Vec needed x2 as sat went down to 60's. Peak pressures 40's. VSS.
[2020-06-22] MEDS: PROPOFOL 100 ML IV PRN ×2 (14:06→23:00)
[2020-06-22 14:11] LABS: BASE EXCESS ABG -4 mmol/L (-3-3); HCO3 ABG 23 mmol/L (21-28); PCO2 ABG 46 mmHg (35-46); PO2 ABG 53 mmHg (65-108); SAT O2 ABG 83 % (92-99)
[2020-06-22 14:16] LABS: FIO2 ABG 100%+10
--- NOTE | 2020-06-22 14:36 | NUR ---
SS following up with discharge planning. SS reviewed pt chart and discussed with pt RN. Pt is currently on the vent at 100%. COVID19 positive. Pt intubated on 06/21/2020. Pt on drips and tube feeds. Not stable. SS will continue to follow for discharge planning.
[2020-06-22] MEDS ORDERED: NOREPINEPHRINE VIAL 8 MG in IV DEXTROSE 5% 250 ML IV PRN (15:45)
--- NOTE | 2020-06-22 16:21 | NUR ---
BP down so Levo gtt started to keep MAP>65. Dr Farmer updated
[2020-06-22] MEDS: INSULIN GLARGINE SYRINGE. SQ SCH (21:12)
[2020-06-23] VITALS (19 sets, daily range): BP systolic 75–127; BP diastolic 39–80
[2020-06-23] MEDS: PROPOFOL 100 ML IV PRN (04:20)
[2020-06-23] MEDS: MIDAZOLAM 100mg/100ml NS BAG 100 ML IV PRN (05:23)
[2020-06-23] MEDS: fentaNYL HIGH DOSE PCA 55 ML IV PRN (05:30)
[2020-06-23] MEDS: INSULIN LISPRO 300 UNITS/3 ML VIAL. SQ SCH ×8 (06:00→18:00)
--- NOTE | 2020-06-23 06:08 | RAD ---
Single view chest dated 06/23/2020. Comparison made to 06/21/2020. CLINICAL INDICATION: Follow-up pneumonia. FINDINGS: Single semiupright portable exam performed. Endotracheal tube, nasogastric tube and right-sided PICC in place, unchanged. The ET tube tip is about 2 cm above the level the joya. Widespread airspace disease, similar given differences in technique. There is blunting of the left co stophrenic sulcus. No pneumothorax. IMPRESSION: 1. No significant interval change in bilateral airspace disease. 2. Stable position of tubes and lines. Electronically signed by: Esteban So MD (06/23/2020 6:06 AM) ALISSA
[2020-06-23] MEDS: glipiZIDE ER 2.5 MG TAB.ER.24 PO SCH (08:00)
[2020-06-23] MEDS ORDERED: POTASSIUM BICARB 10 MEQ EFFERVESCENT TABLET. PO SCH (08:00)
[2020-06-23 08:39] LABS: BASE EXCESS ABG -8 mmol/L (-3-3); HCO3 ABG 20 mmol/L (21-28); PCO2 ABG 47 mmHg (35-46); PO2 ABG 60 mmHg (65-108); SAT O2 ABG 88 % (92-99)
[2020-06-23] MEDS: LOSARTAN POTASSIUM 50 MG TABLET. PO SCH (09:00)
[2020-06-23] MEDS: hydroCHLOROthiazide 12.5 MG CAPSULE PO SCH (09:00)
[2020-06-23] MEDS: NYSTATIN TOPICAL POWDER 15GM BOTTLE. TP SCH (09:00)
[2020-06-23] MEDS ORDERED: MULTIVITAMINS,THERAPEUTIC 5 ML ORAL LIQUID. PEG SCH (09:00)
[2020-06-23] MEDS: ZINC SULFATE 220 MG CAPSULE. PO SCH (09:00)
[2020-06-23] MEDS: CHLORHEXIDINE 0.12% 15 ML MOUTHWASH. MM SCH (09:00)
[2020-06-23] MEDS: OXYBUTYNIN CHLORIDE 5 MG TABLET PO SCH (09:00)
[2020-06-23] MEDS: SERTRALINE 50 MG TABLET. PO SCH (09:00)
[2020-06-23] MEDS ORDERED: GABAPENTIN 250 MG/5 ML ORAL SOLUTION. PO SCH (09:00)
[2020-06-23] MEDS ORDERED: FUROSEMIDE 40 MG/4 ML ORAL SOLUTION. PEG SCH (09:00)
[2020-06-23] MEDS: ASCORBIC ACID 500 MG TABLET PO SCH (09:00)
--- NOTE | 2020-06-23 09:28 | PDOC ---
[facility] [facility] PROGRESS NOTE Date of Service DOS: DATE: 06/23/20 TIME: 09:24 Chief Complaint Chief Complaint Acute respiratory failure with Hypoxia - related to COVID 19 + acute bronchitis Pneumonia due to 2019 novel coronavirus Acute exacerbation of COPD with bronchitis Elevated d-dimer DM2 (A1c 7.7) Depression COPD HTN Stress incontinence Morbid obesity , BMI 48.6 Severe protein calorie malnutrition History of Present Illness History of Present Illness Ms Knapp is a is a 65 year old female with PMHx DM2 (A1c 7.7), depression (s/p ECT), COPD, HTN, stress incontinence, morbid obesity who presents to ED at the insistence of her son for productive cough, tested positive for Covid on June 01 and worsening hypoxia noted with O2 saturations 74% on room air at home. She has been gradually getting worse. Has productive cough, body aches, shortness of breath. Has been taking steroids and azithromycin at home. denies any fever, vomiting, diarrhea. EKG: Sinus rhythm, heart rate 62 bpm, left axis deviation, flattened T waves in multiple leads, no ST elevation or depression, no ectopy Chest radiograph with patchy bilateral airspace disease. Labs of WBC 5.7, Hb 12.9, platelets 149, albumin 2.6, NA 142, K4.1, BUN 29, CR 1.1, glucose 129 Lactic acid WNL. Troponin WNL. D-dimer elevated. CTA chest with findings consistent for known COVID19 and no signs of PE. Admitted for further care due to hypoxia and oxygen demands. Consults with ID and pulmonology. 06/09: Patient seen and examined on the COVID-19 floor. She is on 100% nonrebr eather appears quite ill 06/10: Patient seen and examined on the COVID-19 floor. She is on BiPAP. Started on remdesivir as well per pulmonary 06/11: Now on the BIPAP, has declined, ID and PULM following, cont other managemnt 06/12: Still on resp support, very hypoxic, but comfortable. No acute change, ID and pulm following, cont current. Not improving, prognosis worsens with l ack of improvement over time 06/14: Patient was moved to ICU due to worsening respiratory failure. Completed remdesivir. Currently on BiPAP FiO2 100%. Discussed with RN, she is afebrile, not improving. 06/15: Patient currently on BiPAP support of 80% FiO2. Saturating 100%.> 50% time spent in patient chart, labs, and imaging review and in discussion with RN and SW 06/16: Currently on BiPAP support of 90% FiO2. ABG showing hypoxemia. Patient currently appears to be slightly dyspneic. 06/17: No acute events overnight. Patient is currently saturating 94% on 90% FiO2 BiPAP. Chest X showing improvement. Pending ABG at this time. Patient's chart, labs, images were reviewed and discussed with RN 06/18: Some clinical improvement. No acute events overnight. Afebrile. Saturating 94% on 80% BiPAP.> 50% time spent in patient chart, labs, and imaging review and in discussion with RN and SW 06/19: Afebrile no acute events overnight. Patient seen and examined bedside. Patient saturating 93% on BiPAP at 100%.> 50% time spent in patient chart, labs, and imaging review and in discussion with RN and SW 06/20: No acute events overnight. Patient is saturating 84% on BiPAP at 100%. ABG shows pH 7.39, PCO2 38, PO2 63, HCO3 23. No clinical improvement. Tolerating BiPAP and appears to be in minimal distress. 06/21: Patient saturating 91% on BiPAP at 40%. Intubated. 06/22: Afebrile. Seen on vent PEEP 10, FiO2 100%. UOP dropped overnight. D/w nursing to initiate tube feedings today. Afebrile. on Vent with PEEP 10 and FiO2 100%. A total of 35 minutes of critical care time was spent in reviewing chart, labs, and images. Discussed with RN and TAVON. Vitals/I&O Vitals/I&O: Vital Signs Date Time Temp Pulse Resp B/P (MAP) Pulse Ox O2 Delivery O2 Flow Rate FiO2 06/23/20 06:00 97 24 85/46 (59) 94 Ventilator 06/23/20 05:30 40.0 06/23/20 04:00 98.9 98.9 I & O 06/22/20 06/22/20 06/23/20 15:00 23:00 07:00 Intake Total 947 ml 1055.2 ml Output Total 360 ml 135 ml 240 ml Balance -360 ml 812 ml 815.2 ml Physical Exam Physical Exam: GENERAL: Alert, oriented female, in mild distress. VITAL SIGNS: Stable, afebrile. HEENT: NAD. NECK: Supple, no JVP, no lymphadenopathy. LUNGS: Bibasilar crackles on BiPAP HEART: S1, S2 regular. ABDOMEN: Benign. EXTREMITIES: No edema, cyanosis. SKIN: Unremarkable. NEUROLOGIC: Flat affect very sleepy General: Alert, Cooperative, mild distress, moderate distress, Other (On BiPAP) Heart: Other (Tachycardic) Lungs: Clear Abdomen: Normal bowel sounds, Soft, No tenderness, No hepatosplenomegaly, No masses Extremities: No clubbing, No cyanosis, No edema, Normal pulses, No tenderness/swelling Skin: No rashes, No breakdown, No significant lesion Labs Labs: Laboratory Tests Test 06/22/20 13:22 06/22/20 14:03 06/22/20 17:34 06/23/20 00:26 Glucose (Fingerstick) 114 mg/dL (70-99) 87 mg/dL (70-99) 119 mg/dL (70-99) O2 Saturation 83 % (92-99) Arterial Blood pH 7.31 (7.35-7.45) Arterial Blood pCO2 at Patient Temp 46 mmHg (35-46) Arterial Blood pO2 at Patient Temp 53 mmHg (65-108) Arterial Blood HCO3 23 mmol/L (21-28) Arterial Blood Base Excess -4 mmol/L (-3-3) FiO2 100%+10 Test 06/23/20 05:57 Glucose (Fingerstick) 126 mg/dL (70-99) Assessment and Plan Assessmemt and Plan Problems Medical Problems: (1) Elevated d-dimer Status: Acute (2) Hypoxia Status: Acute (3) Pneumonia due to 2019 novel coronavirus Status: Acute Comment Review of Relevant I have reviewed the following items angel luis (where applicable) has been applied. Medications: Current Medications Medications (Trade) Dose Ordered Sig/Kaiser Route PRN Reason Start Time Stop Time Status Last Admin Dose Admin Fentanyl Citrate 55 ml @ 0 mls/hr CONT PRN IV SEE PROTOCOL 06/22/20 11:15 06/23/20 05:30 Vecuronium [place] (Norcuron Bolus) 6 mg PRN Q4HRS PRN IV SEDATION 06/22/20 13:45 06/22/20 13:36 Norepinephrine Bitartrate 8 mg/ Dextrose 258 ml @ 21.827 mls/ hr CONT PRN IV PER PROTOCOL 06/22/20 15:45 06/22/20 15:30 Justifications for Admission Other Justification ALEKSANDR CLAIRE MD Jun 23, 2020 09:28
[2020-06-23 09:29] LABS: FIO2 ABG 100
[2020-06-23] MEDS: FAMOTIDINE 20 MG/2 ML VIAL IVP SCH (09:39)
[2020-06-23] MEDS: DEXAMETHASONE 0.1% OPHTH SOLUTION 5ML BOTTLE. OU SCH ×3 (09:39→17:00)
[2020-06-23] MEDS: ENOXAPARIN 40 MG/0.4 ML SYRINGE. SQ SCH (09:40)
--- NOTE | 2020-06-23 11:10 | PDOC ---
PULMONARY PROGRESS NOTES DATE: 06/23/20 TIME: 11:06 Subjective Patient was intubated on 06/21 for worsening respiratory distress on 100% and PEEP 10, hypoxia on exam despite vent support 85% low grade fever overnight, on low dose levophed No overnight concerns from nursing Vitals Vital Signs Date Time Temp Pulse Resp B/P (MAP) Pulse Ox O2 Delivery O2 Flow Rate FiO2 06/23/20 10:00 24 Ventilator 06/23/20 09:45 100 78/40 (53) 06/23/20 09:00 101.0 101.0 06/23/20 07:40 92 06/23/20 05:30 40.0 Comments Patient seen during , visual exam performed Obesity intubated/sedated Regular rate and rhythm no accessory muscle use Bilateral lower extremity edema trace Lungs: Clear Labs Laboratory Tests Test 06/21/20 13:06 06/21/20 14:00 06/21/20 14:01 06/21/20 18:55 Glucose (Fingerstick) 262 mg/dL (70-99) 241 mg/dL (70-99) O2 Saturation 87 % (92-99) 90 % (92-99) Arterial Blood pH 7.39 (7.35-7.45) 7.36 (7.35-7.45) Arterial Blood pCO2 at Patient Temp 44 mmHg (35-46) 45 mmHg (35-46) Arterial Blood pO2 at Patient Temp 54 mmHg (65-108) 61 mmHg (65-108) Arterial Blood HCO3 26 mmol/L (21-28) 25 mmol/L (21-28) Arterial Blood Base Excess 1 mmol/L (-3-3) -1 mmol/L (-3-3) FiO2 100/bipap 100/vent Test 06/22/20 00:17 06/22/20 08:00 06/22/20 08:55 06/22/20 13:22 Glucose (Fingerstick) 118 mg/dL (70-99) 114 mg/dL (70-99) O2 Saturation 88 % (92-99) Arterial Blood pH 7.35 (7.35-7.45) Arterial Blood pCO2 at Patient Temp 47 mmHg (35-46) Arterial Blood pO2 at Patient Temp 58 mmHg (65-108) Arterial Blood HCO3 25 mmol/L (21-28) Arterial Blood Base Excess -1 mmol/L (-3-3) FiO2 100/vent White Blood Count 10.2 x10^3/uL (4.0-11.0) Red Blood Count 3.55 x10^6/uL (3.50-5.40) Hemoglobin 10.5 g/dL (12.0-15.5) Hematocrit 31.3 % (36.0-47.0) Mean Corpuscular Volume 88 fL (79-100) Mean Corpuscular Hemoglobin 30 pg (25-35) Mean Corpuscular Hemoglobin Concent 34 g/dL (31-37) Red Cell Distribution Width 14.3 % (11.5-14.5) Platelet Count 207 x10^3/uL (140-400) Neutrophils (%) (Auto) 87 % (31-73) Lymphocytes (%) (Auto) 8 % (24-48) Monocytes (%) (Auto) 3 % (0-9) Eosinophils (%) (Auto) 2 % (0-3) Basophils (%) (Auto) 0 % (0-3) Neutrophils # (Auto) 8.8 x10^3/uL (1.8-7.7) Lymphocytes # (Auto) 0.8 x10^3/uL (1.0-4.8) Monocytes # (Auto) 0.3 x10^3/uL (0.0-1.1) Eosinophils # (Auto) 0.2 x10^3/uL (0.0-0.7) Basophils # (Auto) 0.0 x10^3/uL (0.0-0.2) Segmented Neutrophils % 82 % (35-66) Lymphocytes % 12 % (24-48) Monocytes % 4 % (0-10) Eosinophils % 2 % (0-5) Platelet Estimate Adequate (ADEQUATE) Sodium Level 133 mmol/L (136-145) Potassium Level 4.8 mmol/L (3.5-5.1) Chloride Level 100 mmol/L (98-107) Carbon Dioxide Level 26 mmol/L (21-32) Anion Gap 7 (6-14) Blood Urea Nitrogen 97 mg/dL (7-20) Creatinine 1.1 mg/dL (0.6-1.0) Estimated GFR (Cockcroft-Gault) 49.5 Glucose Level 162 mg/dL (70-99) Calcium Level 8.8 mg/dL (8.5-10.1) Test 06/22/20 14:03 06/22/20 17:34 06/23/20 00:26 06/23/20 05:57 O2 Saturation 83 % (92-99) Arterial Blood pH 7.31 (7.35-7.45) Arterial Blood pCO2 at Patient Temp 46 mmHg (35-46) Arterial Blood pO2 at Patient Temp 53 mmHg (65-108) Arterial Blood HCO3 23 mmol/L (21-28) Arterial Blood Base Excess -4 mmol/L (-3-3) FiO2 100%+10 Glucose (Fingerstick) 87 mg/dL (70-99) 119 mg/dL (70-99) 126 mg/dL (70-99) Test 06/23/20 07:40 O2 Saturation 88 % (92-99) Arterial Blood pH 7.24 (7.35-7.45) Arterial Blood pCO2 at Patient Temp 47 mmHg (35-46) Arterial Blood pO2 at Patient Temp 60 mmHg (65-108) Arterial Blood HCO3 20 mmol/L (21-28) Arterial Blood Base Excess -8 mmol/L (-3-3) FiO2 100 Laboratory Tests Test 06/22/20 13:22 06/22/20 14:03 06/22/20 17:34 06/23/20 00:26 Glucose (Fingerstick) 114 mg/dL (70-99) 87 mg/dL (70-99) 119 mg/dL (70-99) O2 Saturation 83 % (92-99) Arterial Blood pH 7.31 (7.35-7.45) Arterial Blood pCO2 at Patient Temp 46 mmHg (35-46) Arterial Blood pO2 at Patient Temp 53 mmHg (65-108) Arterial Blood HCO3 23 mmol/L (21-28) Arterial Blood Base Excess -4 mmol/L (-3-3) FiO2 100%+10 Test 06/23/20 05:57 06/23/20 07:40 Glucose (Fingerstick) 126 mg/dL (70-99) O2 Saturation 88 % (92-99) Arterial Blood pH 7.24 (7.35-7.45) Arterial Blood pCO2 at Patient Temp 47 mmHg (35-46) Arterial Blood pO2 at Patient Temp 60 mmHg (65-108) Arterial Blood HCO3 20 mmol/L (21-28) Arterial Blood Base Excess -8 mmol/L (-3-3) FiO2 100 Medications Active Scripts Medications Dose Route/Sig Max Daily Dose Days Date Category Sertraline Hcl 100 Mg Tablet 100 Mg PO DAILY 06/07/20 Reported Potassium Chloride 8 Meq Capsule.er 1 Cap PO DAILY 06/07/20 Reported Novolog Flexpen (Insulin Aspart) 100 Unit/1 Ml Insuln.pen 1 Unit SQ TIDAC 06/07/20 Reported Glipizide Er (Glipizide) 5 Mg Tab.er.24 1 Tab PO QAM 06/07/20 Reported Darifenacin ER (Darifenacin Hydrobromide) 7.5 Mg Tab.er.24h 1 Tab PO DAILY 06/07/20 Reported Losartan-Hctz 50-12.5 Mg Tab (Losartan/Hydrochlorothiazide) 1 Each Tablet 1 Tab PO DAILY 06/07/20 Reported Furosemide 40 Mg Tablet 1 Tab PO DAILY 06/07/20 Reported Prednisolone Acetate 5 Ml Drops.susp 2 Drop OU QID 06/07/20 Reported Gabapentin 300 Mg Capsule 600 Mg PO DAILY 06/07/20 Reported Novolog (Insulin Aspart) 100 Unit/1 Ml Cartridge 20 Unit SQ TIDAC 03/25/16 Reported Comments CXR 06/23 IMPRESSION: 1. No significant interval change in bilateral airspace disease. 2. Stable position of tubes and lines. CTA chest IMPRESSION: 1. There is no CT evidence of pulmonary embolus. 2. There are patchy groundglass opacities throughout the lungs with interspersed normal lung. Relative sparing of the basilar left lower lobe and the lung apices. There is no confluent consolidation. Considerations include pneumonia including atypical viral pneumonia, nonspecific pneumonitis, or drug toxicity. Impression . IMPRESSION: 1. Acute hypoxic respiratory failure secondary to acute lung injury, acute respiratory distress syndrome due to COVID-19 pneumonia, now requiring intubation 2. COVID-[address] chest with diffuse extensive bilateral infiltrates. No evidence of pulmonary embolism. This finding is consistent with COVID-19 pneumonia. 4. Underlying morbid obesity contributing to hypoxia. prob dante 5. No significant tobacco use. 6. Hypotension Plan . RECOMMENDATIONS: Continue current vent support Fi02 100% and PEEP 10 now in 1:1 ratio Follow chest x-ray and ABG, will increase resp. rate on vent to 26 and give 1 AMP bicarb Follow infectious disease recommendations, currently off antibiotics Continue remdesivir for full 5-day course Continue vasopressor to keep MAP above 65 Pt. has completed steroids has completed Full ten days course Monitor renal function Tube feeding for nutritional support PT/OT DVT/GI prophylaxis No clinical improvement Discussed with RN and RT. Critical care time 30 minutes Pt. is PArtial code now per family DEEDEE WARD MD Jun 23, 2020 11:10
[2020-06-23] MEDS ORDERED: SODIUM BICARB ADULT 8.4% 50 MEQ/50 ML DISP.SYRIN. IV ONE ×2 (11:15→15:45)
[2020-06-23] MEDS: guaiFENesin DM 200MG/20MG 10 ML SYRUP PO SCH ×2 (12:00→18:00)
--- NOTE | 2020-06-23 14:29 | NUR ---
SS following up with discharge planning. SS reviewed pt chart and discussed with pt RN. Pt is currently on the vent at 100%. COVID19 positive. Pt partial DNR (no compressions). Not stable. SS will continue to follow for discharge planning.
[2020-06-23] MEDS ORDERED: EPINEPHrine SYRINGE 1 MG/10 ML SYRINGE ONE ×2 (14:54→15:00)
[2020-06-23] MEDS ORDERED: VASOPRESSIN 20 UNIT in IV DEXTROSE 5% 100ML 100 ML IV PRN (15:00)
[2020-06-23 15:29] LABS: CALCIUM 8.4 mg/dL (8.5-10.1); CREATININE 2.1 mg/dL (0.6-1.0); GFR 23.5; MAGNESIUM 2.7 mg/dL (1.8-2.4)
[2020-06-23] MEDS ORDERED: IV NORMAL SALINE 1000ML BAG 1,000 ML IV ONE (15:30)
[2020-06-23 15:41] LABS: POTASSIUM 6.8 mmol/L (3.5-5.1)
[2020-06-23] MEDS ORDERED: INSULIN REGULAR 100 UNIT/ML 3ML VIAL. IV ONE (15:45)
[2020-06-23] MEDS ORDERED: DEXTROSE 50% 25 GM / 50ML DISP.SYRIN. IV ONE (15:45)
[2020-06-23] MEDS ORDERED: CALCIUM GLUCONATE 1,000 MG/10 ML VIAL. IVP ONE (15:45)
--- NOTE | 2020-06-23 16:05 | NUR ---
Wound Care Attempted to see pt for wound care f/u, RN informed us that pt is actively passing.
--- NOTE | 2020-06-23 16:24 | NUR ---
[id number] Gradual change in patient condition observed w increased HR,decreasing pulse ox results w/o overt respiratory distress,decreasing BP even w increase in vasopressor rate. Total loss of measurable BP . Ns bolus started . Dr Doe notified w stat lab work drawn/vasopressin initiated. Pulses Dopple w return NBP after 2nd med. Pupils 3 nonreactive to light. Cyanosis hands,toes and feet starting this am sreading to knees at this time. Skin cool all over w circumoral cyanosis. Family notified and in room at this time. Outcome discussed w change in code status to NCB. Pressors off per family request and communication w Dr Doe. Reassured "patient comfort is our main objective. Versed infused w fent high dose continued same rate. 1630 Gradual slowing of heart rate observed. Meds as needed for comfort. 1630 idio vent rhythm- dieing heart . Family at bedside face timing out of town relatives. Pronounced at [id number] RN. 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 [phone]. All personal belongings including cell phone home w him. Will check into home and call 06/23 zachary or latest in am 06/24. Indwelling lines Dcd. Double bagged per protocol. To noe.
--- NOTE | 2020-06-23 16:52 | NUR ---
MNT was called at 2057
--- NOTE | 2020-06-23 17:30 | PDOC3 ---
Discharge Summary Visit Information Date of Admission: Jun 07, 2020 Date of Discharge: Jun 23, 2020 Admitting Diagnosis: Acute respiratory failure with hypoxia Final Diagnosis Problems Medical Problems: (1) Elevated d-dimer Status: Acute (2) Hypoxia Status: Acute (3) Pneumonia due to 2019 novel coronavirus Status: Acute Brief Hospital Course Allergies Allergies Coded Allergies Type Severity Reaction Last Updated Verified colestipol Allergy Intermediate 06/07/20 Yes nitrofurantoin Allergy Intermediate rash 06/07/20 Yes codeine Allergy Mild vomiting 03/25/16 Yes Vital Signs Vital Signs Date Time Temp Pulse Resp B/P (MAP) Pulse Ox O2 Delivery O2 Flow Rate FiO2 06/23/20 15:45 86 Ventilator 06/23/20 13:00 110 24 111/48 (69) 06/23/20 11:00 100.0 100.0 06/23/20 05:30 40.0 Lab Results Laboratory Tests Test 06/21/20 18:55 06/22/20 00:17 06/22/20 08:00 06/22/20 08:55 Glucose (Fingerstick) 241 mg/dL (70-99) 118 mg/dL (70-99) O2 Saturation 88 % (92-99) Arterial Blood pH 7.35 (7.35-7.45) Arterial Blood pCO2 at Patient Temp 47 mmHg (35-46) Arterial Blood pO2 at Patient Temp 58 mmHg (65-108) Arterial Blood HCO3 25 mmol/L (21-28) Arterial Blood Base Excess -1 mmol/L (-3-3) FiO2 100/vent White Blood Count 10.2 x10^3/uL (4.0-11.0) Red Blood Count 3.55 x10^6/uL (3.50-5.40) Hemoglobin 10.5 g/dL (12.0-15.5) Hematocrit 31.3 % (36.0-47.0) Mean Corpuscular Volume 88 fL (79-100) Mean Corpuscular Hemoglobin 30 pg (25-35) Mean Corpuscular Hemoglobin Concent 34 g/dL (31-37) Red Cell Distribution Width 14.3 % (11.5-14.5) Platelet Count 207 x10^3/uL (140-400) Neutrophils (%) (Auto) 87 % (31-73) Lymphocytes (%) (Auto) 8 % (24-48) Monocytes (%) (Auto) 3 % (0-9) Eosinophils (%) (Auto) 2 % (0-3) Basophils (%) (Auto) 0 % (0-3) Neutrophils # (Auto) 8.8 x10^3/uL (1.8-7.7) Lymphocytes # (Auto) 0.8 x10^3/uL (1.0-4.8) Monocytes # (Auto) 0.3 x10^3/uL (0.0-1.1) Eosinophils # (Auto) 0.2 x10^3/uL (0.0-0.7) Basophils # (Auto) 0.0 x10^3/uL (0.0-0.2) Segmented Neutrophils % 82 % (35-66) Lymphocytes % 12 % (24-48) Monocytes % 4 % (0-10) Eosinophils % 2 % (0-5) Platelet Estimate Adequate (ADEQUATE) Sodium Level 133 mmol/L (136-145) Potassium Level 4.8 mmol/L (3.5-5.1) Chloride Level 100 mmol/L (98-107) Carbon Dioxide Level 26 mmol/L (21-32) Anion Gap 7 (6-14) Blood Urea Nitrogen 97 mg/dL (7-20) Creatinine 1.1 mg/dL (0.6-1.0) Estimated GFR (Cockcroft-Gault) 49.5 Glucose Level 162 mg/dL (70-99) Calcium Level 8.8 mg/dL (8.5-10.1) Test 06/22/20 13:22 06/22/20 14:03 06/22/20 17:34 06/23/20 00:26 Glucose (Fingerstick) 114 mg/dL (70-99) 87 mg/dL (70-99) 119 mg/dL (70-99) O2 Saturation 83 % (92-99) Arterial Blood pH 7.31 (7.35-7.45) Arterial Blood pCO2 at Patient Temp 46 mmHg (35-46) Arterial Blood pO2 at Patient Temp 53 mmHg (65-108) Arterial Blood HCO3 23 mmol/L (21-28) Arterial Blood Base Excess -4 mmol/L (-3-3) FiO2 100%+10 Test 06/23/20 05:57 06/23/20 07:40 06/23/20 11:22 06/23/20 15:05 Glucose (Fingerstick) 126 mg/dL (70-99) 186 mg/dL (70-99) O2 Saturation 88 % (92-99) Arterial Blood pH 7.24 (7.35-7.45) Arterial Blood pCO2 at Patient Temp 47 mmHg (35-46) Arterial Blood pO2 at Patient Temp 60 mmHg (65-108) Arterial Blood HCO3 20 mmol/L (21-28) Arterial Blood Base Excess -8 mmol/L (-3-3) FiO2 100 Sodium Level 127 mmol/L (136-145) Potassium Level 6.8 mmol/L (3.5-5.1) Chloride Level 94 mmol/L (98-107) Carbon Dioxide Level 17 mmol/L (21-32) Anion Gap 16 (6-14) Blood Urea Nitrogen 107 mg/dL (7-20) Creatinine 2.1 mg/dL (0.6-1.0) Estimated GFR (Cockcroft-Gault) 23.5 Glucose Level 296 mg/dL (70-99) Calcium Level 8.4 mg/dL (8.5-10.1) Magnesium Level 2.7 mg/dL (1.8-2.4) Laboratory Tests Test 06/22/20 17:34 06/23/20 00:26 06/23/20 05:57 06/23/20 07:40 Glucose (Fingerstick) 87 mg/dL (70-99) 119 mg/dL (70-99) 126 mg/dL (70-99) O2 Saturation 88 % (92-99) Arterial Blood pH 7.24 (7.35-7.45) Arterial Blood pCO2 at Patient Temp 47 mmHg (35-46) Arterial Blood pO2 at Patient Temp 60 mmHg (65-108) Arterial Blood HCO3 20 mmol/L (21-28) Arterial Blood Base Excess -8 mmol/L (-3-3) FiO2 100 Test 06/23/20 11:22 06/23/20 15:05 Glucose (Fingerstick) 186 mg/dL (70-99) Sodium Level 127 mmol/L (136-145) Potassium Level 6.8 mmol/L (3.5-5.1) Chloride Level 94 mmol/L (98-107) Carbon Dioxide Level 17 mmol/L (21-32) Anion Gap 16 (6-14) Blood Urea Nitrogen 107 mg/dL (7-20) Creatinine 2.1 mg/dL (0.6-1.0) Estimated GFR (Cockcroft-Gault) 23.5 Glucose Level 296 mg/dL (70-99) Calcium Level 8.4 mg/dL (8.5-10.1) Magnesium Level 2.7 mg/dL (1.8-2.4) Brief Hospital Course Ms Knapp was a is a 65 year old female with PMHx DM2 (A1c 7.7), depression (s/p ECT), COPD, HTN, stress incontinence, morbid obesity who presented to ED on 06/07/2020 at the insistence of her son for productive cough, tested positive for Covid on June 01 and worsening hypoxia noted with O2 saturations 74% on room air at home. She has been gradually getting worse. Has productive cough, body aches, shortness of breath. Has been taking steroids and azithromycin at home. denies any fever, vomiting, diarrhea. EKG: Sinus rhythm, heart rate 62 bpm, left axis deviation, flattened T waves in multiple leads, no ST elevation or depression, no ectopy Chest radiograph with patchy bilateral airspace disease. Labs of WBC 5.7, Hb 12.9, platelets 149, albumin 2.6, NA 142, K4.1, BUN 29, CR 1.1, glucose 129 Lactic acid WNL. Troponin WNL. D-dimer elevated. CTA chest with findings consistent for known COVID19 and no signs of PE. Admitted for further care due to hypoxia and oxygen demands. Consults with ID and pulmonology. 06/09: Patient seen and examined on the COVID-19 floor. She is on 100% nonrebreather appears quite ill 06/10: Patient seen and examined on the COVID-19 floor. She is on BiPAP. Started on remdesivir as well per pulmonary 06/11: Now on the BIPAP, has declined, ID and PULM following, cont other managemnt 06/12: Still on resp support, very hypoxic, but comfortable. No acute change, ID and pulm following, cont current. Not improving, prognosis worsens with lack of improvement over time 06/14: Patient was moved to ICU due to worsening respiratory failure. Completed remdesivir. Currently on BiPAP FiO2 100%. Discussed with RN, she is afebrile, not improving. 06/15: Patient currently on BiPAP support of 80% FiO2. Saturating 100%.> 50% time spent in patient chart, labs, and imaging review and in discussion with RN and SW 06/16: Currently on BiPAP support of 90% FiO2. ABG showing hypoxemia. Patient currently appears to be slightly dyspneic. 06/17: No acute events overnight. Patient is currently saturating 94% on 90% FiO2 BiPAP. Chest X showing improvement. Pending ABG at this time. Patient's chart, labs, images were reviewed and discussed with RN 06/18: Some clinical improvement. No acute events overnight. Afebrile. Saturating 94% on 80% BiPAP.> 50% time spent in patient chart, labs, and imaging review and in discussion with RN and SW 06/19: Afebrile no acute events overnight. Patient seen and examined bedside. Patient saturating 93% on BiPAP at 100%.> 50% time spent in patient chart, labs, and imaging review and in discussion with RN and SW 06/20: No acute events overnight. Patient is saturating 84% on BiPAP at 100%. ABG shows pH 7.39, PCO2 38, PO2 63, HCO3 23. No clinical improvement. Tolerating BiPAP and appears to be in minimal distress. 06/21: Patient saturating 91% on BiPAP at 40%. Intubated. 06/22: Afebrile. Seen on vent PEEP 10, FiO2 100%. UOP dropped overnight. D/w nursing to initiate tube feedings today. 06/23: Overnight was Afebrile. on Vent with PEEP 10 and FiO2 100% but BP and O2 continued to drop throughout the day Contacted at 1450 about change in patient telemetry with widening of QRS. UOP notably dropped throughout the day and O2 needs increased. Labs with K 6.8, Cr 2.1. NSS bolus, Bicarbonate, Insulin, D50, calcium gluconate ordered. Son contacted urgently given her change in status and prior discussion of DNR order per his wishes. He is bedside to be with his mother. At 1615 son, Sekou, requested to make his mother comfortable and to discontinue pressors and aggressive care and to keep her comfortable, but not to disconnect the ventilator. He was bedside when notably was in aware she is imminent. 1639 time of . Problem list: Acute respiratory failure with Hypoxia - related to COVID 19 + acute bronchitis Pneumonia due to 2019 novel coronavirus Acute exacerbation of COPD with bronchitis Elevated d-dimer DM2 (A1c 7.7) Depression COPD HTN Stress incontinence Morbid obesity , BMI 48.6 Severe protein calorie malnutrition Greater than 30 minutes spent on d/c on day of patient expiration Discharge Information Condition at Discharge: / Disposition/Orders: Scheduled Darifenacin Hydrobromide (Darifenacin ER) 7.5 Mg Tab.er.24h, 1 TAB PO DAILY for muscle spasms, (Reported) Entered as Reported by: Fran Arceo on 06/07/202320 Last Action: Converted on 06/07/202331 by Fran Arceo Furosemide (Furosemide) 40 Mg Tablet, 1 TAB PO DAILY for diuretic, (Reported) Entered as Reported by: Fran Arceo on 06/07/202320 Last Action: Continued on 06/07/202331 by Fran Arceo Gabapentin (Gabapentin) 300 Mg Capsule, 600 MG PO DAILY for neuropathy, (Reported) Entered as Reported by: Fran Areco on 06/07/202320 Last Action: Continued on 06/07/202332 by Fran Arceo Glipizide (Glipizide Er) 5 Mg Tab.er.24, 1 TAB PO QAM for DM, (Reported) Entered as Reported by: Fran Arceo on 06/07/202320 Last Action: Converted on 06/07/202331 by Fran Arceo Insulin Aspart (Novolog) 100 Unit/1 Ml Cartridge, 20 UNIT SQ TIDAC for dm, (Reported) Entered as Reported by: CONSTANTIN PEREA on 03/25/16 0631 Last Action: Converted on 06/07/202331 by Fran Arceo Insulin Aspart (Novolog Flexpen) 100 Unit/1 Ml Insuln.pen, 1 UNIT SQ TIDAC for dm, (Reported) Entered as Reported by: Fran Arceo on 06/07/202320 Last Action: Converted on 06/07/202331 by Fran Arceo Losartan/Hydrochlorothiazide (Losartan-Hctz 50-12.5 Mg Tab) 1 Each Tablet, 1 TAB PO DAILY for bloodpressure, (Reported) Entered as Reported by: Fran Arceo on 06/07/202320 Last Action: Converted on 06/07/202331 by Fran Arcoe Potassium Chloride (Potassium Chloride) 8 Meq Capsule.er, 1 CAP PO DAILY for potassium, (Reported) Entered as Reported by: Fran Arceo on 06/07/202320 Last Action: Converted on 06/07/202331 by Fran Arceo Prednisolone Acetate (Prednisolone Acetate) 5 Ml Drops.susp, 2 DROP OU QID for eye, (Reported) Entered as Reported by: Fran Arceo on 06/07/202320 Last Action: Converted on 06/07/202331 by Fran Arceo Sertraline Hcl (Sertraline Hcl) 100 Mg Tablet, 100 MG PO DAILY for depression, (Reported) Entered as Reported by: Fran Arceo on 06/07/202320 Last Action: Converted on 06/07/202331 by Fran Arceo Justicifation of Admission Dx: Justifications for Admission: Justification of Admission Dx: Yes (resp failure) ALEKSANDR CLAIRE MD Jun 23, 2020 17:30
== END 2020-06-23 16:38 | DRG 208 ==
LOC: ER 16:09 → ED HOLD 19:10 → 6 SOUTH 22:18 → 1 WEST ICU 06-13 13:56
PROVIDERS: ADMIT Family Medicine; ATTEND Family Medicine
PROC: XW033E5 Introduction of Remdesivir Anti-infective into Peripheral Vein, Percutaneous Approach, New Technology Group 5 (ICD-10-PCS; 2020-06-09)
PROC: 5A09357 Assistance with Respiratory Ventilation, Less than 24 Consecutive Hours, Continuous Positive Airway Pressure (ICD-10-PCS; 2020-06-10)
PROC: 5A09357 Assistance with Respiratory Ventilation, Less than 24 Consecutive Hours, Continuous Positive Airway Pressure (ICD-10-PCS; 2020-06-11)
PROC: 5A09557 Assistance with Respiratory Ventilation, Greater than 96 Consecutive Hours, Continuous Positive Airway Pressure (ICD-10-PCS; 2020-06-12)
PROC: 02HV33Z Insertion of Infusion Device into Superior Vena Cava, Percutaneous Approach (ICD-10-PCS; principal; 2020-06-16)
PROC: 5A1945Z Respiratory Ventilation, 24-96 Consecutive Hours (ICD-10-PCS; 2020-06-21)
PROC: 0BH17EZ Insertion of Endotracheal Airway into Trachea, Via Natural or Artificial Opening (ICD-10-PCS; 2020-06-21)
DX: U07.1 COVID-19 (principal); E43 Unspecified severe protein-calorie malnutrition; J96.01 Acute respiratory failure with hypoxia; J12.89 Other viral pneumonia; J44.0 Chronic obstructive pulmonary disease with (acute) lower respiratory infection; J44.1 Chronic obstructive pulmonary disease with (acute) exacerbation; Z68.42 Body mass index [BMI] 45.0-49.9, adult; E11.9 Type 2 diabetes mellitus without complications; E66.01 Morbid (severe) obesity due to excess calories; E78.5 Hyperlipidemia, unspecified; F32.9 Major depressive disorder, single episode, unspecified; G47.33 Obstructive sleep apnea (adult) (pediatric); G62.9 Polyneuropathy, unspecified; I10 Essential (primary) hypertension; J20.8 Acute bronchitis due to other specified organisms; Z79.4 Long term (current) use of insulin; Z79.899 Other long term (current) drug therapy; Z82.49 Family history of ischemic heart disease and other diseases of the circulatory system; Z83.3 Family history of diabetes mellitus; G56.00 Carpal tunnel syndrome, unspecified upper limb; I95.9 Hypotension, unspecified; Z88.5 Allergy status to narcotic agent; Z88.8 Allergy status to other drugs, medicaments and biological substances; Z90.49 Acquired absence of other specified parts of digestive tract; N39.3 Stress incontinence (female) (male); Z66 Do not resuscitate
CPT/HCPCS: 36415; 36569; 36600; 71045; 71275; 80048; 80053; 81001; 82550; 82728; 82805; 82962; 83615; 83735; 83880; 84484; 85007; 85025; 85379; 87040; 93005; 94002; 94003; 94660; 94760; 96361; 96365; 96375; 99291; J0171; J0330; J0456; J0610; J0696; J1100; J1650; J1815; J1940; J2060; J2250; J2270; J2704; J3010; J3490; J7030; J7040; J7050; J7060; Q9967; G0378